=== PATIENT | female | born 1960 | race Caucasian/White ===

== ENCOUNTER 2017-06-06 18:42 | Emergency (ER) | payer OTHER ==
[2017-06-06] MEDS: ASPIRIN 81 MG TAB PO (19:28)
[2017-06-06] MEDS: ONDANSETRON 4 MG INJ IV (20:06)
[2017-06-06 20:11] LABS: WHITE BLOOD COUNT 3.4 10^3/ul (4.8-10.8)
[2017-06-06 20:11] LABS: ABNORMAL IP MESSAGE 1; HEMATOCRIT 35.9 % (37.0-47.0); HEMOGLOBIN 11.8 g/dl (12.0-16.0); MEAN CORPUSCULAR HEMOGLOBIN 29.3 pg (29.0-33.0); MEAN CORPUSCULAR HGB CONC 32.9 g/dl (32.0-37.0); MEAN CORPUSCULAR VOLUME 89.1 fl (82.0-101.0); MEAN PLATELET VOLUME 10.8 fl (7.4-10.4); RED BLOOD COUNT 4.03 10^6/ul (4.20-5.40); RED CELL DISTRIBUTION WIDTH 16.2 % (11.5-14.5)
[2017-06-06] MEDS: HYDROmorphONE 1 MG/5 ML IV SYRINGE IV (20:11)
[2017-06-06] MEDS: FUROSEMIDE 40 MG INJ IV (20:11)
[2017-06-06] MEDS: NITROGLYCERIN 2% 1 GM OINT PKT TD (20:12)
[2017-06-06 20:15] LABS: ADD MAN DIFF? YES; PATH REVIEW? YES; PLATELET COUNT 49 10^3/UL (140-415); POSITIVE DIFF @See below
[2017-06-06 20:18] LABS: INR 1.39; PROTIME 17.3 Sec (11.9-14.9); PT RATIO 1.4
[2017-06-06 20:19] LABS: PARTIAL THROMBOPLASTIN TIME 33.7 Sec (25.0-35.0)
[2017-06-06 20:23] LABS: ALANINE AMINOTRANSFERASE 86 IU/L (13-69); ALBUMIN 2.4 g/dl (3.3-4.9); ALBUMIN/GLOBULIN RATIO 0.48; ALKALINE PHOSPHATASE 135 IU/L (42-121); ASPARTATE AMINO TRANSFERASE 127 IU/L (15-46); BILIRUBIN,INDIRECT 0.9 mg/dl (0-1.1); BILIRUBIN,TOTAL 0.9 mg/dl (0.2-1.3); BLOOD UREA NITROGEN 11 mg/dl (7-20); CALCIUM 8.2 mg/dl (8.4-10.2); CARBON DIOXIDE 28 mmol/L (21-31); CHLORIDE 102 mmol/L (97-110); CREATININE 0.58 mg/dl (0.44-1.00); GLUCOSE 285 mg/dl (70-220); TOTAL PROTEIN 7.3 g/dl (6.1-8.1)
[2017-06-06 20:37] LABS: ANION GAP 12 (8-16); POTASSIUM 3.7 mmol/L (3.5-5.1); SODIUM 138 mmol/L (135-144); TROPONIN-I < 0.012 ng/ml (0.00-0.12)
[2017-06-06 20:40] LABS: BASOPHILS % (M) 2 % (0-2); LYMPHOCYTES #M 0.8 10^3/ul (0.8-2.9); LYMPHOCYTES % (M) 25 % (15-51); MONOCYTE #M 0.2 10^3/ul (0.3-0.9); MONOCYTES % (M) 7 % (0-11); PLATELET ESTIMATE SIG DECREASED; POLYCHROMASIA 2+ (0-0); REACTIVE LYMPHOCYTES% (M) 2 % (0-0); SEGMENTED NEUTROPHILS (M) % 64 % (39-77); SMUDGE%M 7 % (0-0)
== END 2017-06-07 02:32 | disposition home or self-care (01) ==
LOC: E/R 06-07 02:32
DX: K74.69 Other cirrhosis of liver (principal); R60.0 Localized edema; D61.818 Other pancytopenia; E11.9 Type 2 diabetes mellitus without complications; F17.210 Nicotine dependence, cigarettes, uncomplicated; I10 Essential (primary) hypertension; J44.9 Chronic obstructive pulmonary disease, unspecified; Z86.19 Personal history of other infectious and parasitic diseases; Z79.82 Long term (current) use of aspirin
CPT/HCPCS: 36415; 71045; 80053; 84484; 85025; 85610; 85730; 93005; 96374; 96375; 99285-25

== ENCOUNTER 2017-08-29 12:35 | Inpatient (IN) | payer OTHER ==
[2017-08-29] MEDS: ONDANSETRON 4 MG INJ IV (13:02)
[2017-08-29] MEDS: morphine 4 MG/ML VIAL IV (13:03)
[2017-08-29] MEDS: SODIUM CHLORIDE 0.9% 1L BAG IV* (13:09)
[2017-08-29] MEDS: PIPER-TAZO 3.375 GM IV (PMX) 100 ML IVPB (13:09)
[2017-08-29] MEDS: ACETAMINOPHEN 325 MG TAB PO (13:10)
[2017-08-29 13:13] LABS: ADD MAN DIFF? NO
[2017-08-29 13:19] LABS: WHITE BLOOD COUNT 7.3 10^3/ul (4.8-10.8)
[2017-08-29 13:19] LABS: ABNORMAL IP MESSAGE 1; BASOPHIL # 0.1 10^3/ul (0.0-0.1); BASOPHILS % 1.4 % (0.0-2.0); HEMATOCRIT 42.3 % (37.0-47.0); HEMOGLOBIN 13.7 g/dl (12.0-16.0); LYMPHOCYTES # 1.7 10^3/ul (0.8-2.9); LYMPHOCYTES % 23.1 % (15.0-51.0); MEAN CORPUSCULAR HEMOGLOBIN 29.7 pg (29.0-33.0); MEAN CORPUSCULAR HGB CONC 32.4 g/dl (32.0-37.0); MEAN CORPUSCULAR VOLUME 91.6 fl (82.0-101.0); MEAN PLATELET VOLUME 10.8 fl (7.4-10.4); MONOCYTES % 13.6 % (0.0-11.0); NEUTROPHIL # 4.4 10^3/ul (1.6-7.5); NEUTROPHILS % 59.7 % (39.0-77.0); PLATELET COUNT 53 10^3/UL (140-415); RED BLOOD COUNT 4.62 10^6/ul (4.20-5.40); RED CELL DISTRIBUTION WIDTH 16.3 % (11.5-14.5)
[2017-08-29 13:21] LABS: POSITIVE DIFF @See below
[2017-08-29 13:37] LABS: INR 1.47; PROTIME 18.1 Sec (11.9-14.9); PT RATIO 1.4
[2017-08-29 13:38] LABS: PARTIAL THROMBOPLASTIN TIME 35.5 Sec (25.0-35.0)
[2017-08-29 13:46] LABS: LACTIC ACID 1.8 mmol/L (0.5-2.0)
[2017-08-29 13:47] LABS: ALANINE AMINOTRANSFERASE 71 IU/L (13-69); ALBUMIN 2.7 g/dl (3.3-4.9); ALKALINE PHOSPHATASE 134 IU/L (42-121); ANION GAP 10 (8-16); ASPARTATE AMINO TRANSFERASE 107 IU/L (15-46); BILIRUBIN,INDIRECT 2.8 mg/dl (0-1.1); BILIRUBIN,TOTAL 2.8 mg/dl (0.2-1.3); BLOOD UREA NITROGEN 7 mg/dl (7-20); CALCIUM 7.9 mg/dl (8.4-10.2); CARBON DIOXIDE 24 mmol/L (21-31); CHLORIDE 107 mmol/L (97-110); CREATININE 0.47 mg/dl (0.44-1.00); GLUCOSE 241 mg/dl (70-220); LIPASE 83 U/L (23-300); POTASSIUM 4.1 mmol/L (3.5-5.1); SODIUM 137 mmol/L (135-144); TOTAL PROTEIN 8.2 g/dl (6.1-8.1)
[2017-08-29 13:48] LABS: ALBUMIN/GLOBULIN RATIO 0.49
[2017-08-29 13:58] LABS: TROPONIN-I 0.011 ng/ml (0.000-0.120)
[2017-08-29] MEDS ORDERED: ALBUTEROL 0.5% (NEB) 2.5 MG/0.5 ML AMP (13:59)
[2017-08-29] MEDS: ALBUTEROL 0.5% (NEB) 2.5 MG/0.5 ML AMP NEB (14:02)
[2017-08-29 14:03] LABS: B-TYPE NATRIURETIC PEPTIDE 144 PG/ML (0-125)
[2017-08-29] MEDS: FUROSEMIDE 40 MG INJ IV (14:05)
[2017-08-29 14:57] LABS: Allen Test ACCEPTAB; Arterial Base Excess -0.3 mmol/L (-3.0-3); Arterial Blood Gas Oxygen Sat 95.6 mmHG (95.0-98.0); Arterial COHb 1.9 % (0.0-3.0); Arterial Fraction of Oxyhgb 93.5 % (93.0-99.0); Arterial HCO3 26.9 mmol/L (22.0-26.0); Arterial MetHb 0.3 % (0.0-1.5); Arterial Total Hemglobin 14.7 g/dl (12.0-18.0); Blood Gas IEPAP 15/5; Blood Gas PS 10; MODE MASK - BIPAP; Site Right Radial
[2017-08-29] MEDS: AZITHROMYCIN 500MG/NS (PMX) 250 ML IVPB (15:18)
[2017-08-29 15:49] LABS: LACTIC ACID 2.1 mmol/L (0.5-2.0)
[2017-08-29] MEDS ORDERED: ONDANSETRON 4 MG INJ IV (16:00)
[2017-08-29] MEDS ORDERED: ACETAMINOPHEN 325 MG TAB PO (16:00)
[2017-08-29] MEDS: ALBUTEROL/IPRATROPIUM (NEB) 3 ML AMP NEB ×2 (17:00→20:27)
[2017-08-29] MEDS ORDERED: NACL 0.9% 3 ML SYG IV (17:00)
[2017-08-29] MEDS: CEFTRIAXONE 1 GM/50 ML (PMX) 50 ML IVPB (17:18)
[2017-08-29 17:54] LABS: D-DIMER 2446.78 ng/ml (<460)
[2017-08-29] MEDS ORDERED: FUROSEMIDE 40 MG INJ IV (18:00)
[2017-08-29 18:04] LABS: CREATINE KINASE 49 IU/L (23-200)
[2017-08-29 18:17] LABS: CK INDEX 0.5; CK-MB 0.25 ng/ml (0.0-2.4); TROPONIN-I < 0.010 ng/ml (0.000-0.120)
[2017-08-29] MEDS: IODIXANOL LOCM 100 ML BTL ×2 (18:31→18:32)
[2017-08-29] MEDS: SOD CHLORIDE 0.9% 100 ML ×2 (18:31→18:32)
[2017-08-29] MEDS: MONTELUKAST 10 MG TAB PO (21:22)
[2017-08-29] MEDS: ENOXAPARIN 30 MG/0.3 ML SYG SC (21:26)
[2017-08-29] MEDS: ENOXAPARIN 100 MG/ML SYG SC (21:27)
[2017-08-29] MEDS: SOD CHLORIDE 0.9% 500 ML IV (22:30)
[2017-08-29 23:42] LABS: CREATINE KINASE 66 IU/L (23-200)
[2017-08-29 23:54] LABS: CK INDEX 0.6; CK-MB 0.38 ng/ml (0.0-2.4); TROPONIN-I 0.014 ng/ml (0.000-0.120)
[2017-08-30] MEDS: NACL 3% FOR INHALATION 15 ML NEBU NEB (00:29)
[2017-08-30] MEDS: ALBUTEROL/IPRATROPIUM (NEB) 3 ML AMP NEB ×6 (01:44→20:17)
[2017-08-30 03:33] LABS: LACTIC ACID 5.1 mmol/L (0.5-2.0)
[2017-08-30] MEDS: LEVOFLOXACIN 750MG/D5W (PMX) 150 ML IVPB (04:02)
[2017-08-30] MEDS: SOD CHLORIDE 0.9% 500 ML IV (04:02)
[2017-08-30 06:11] LABS: ADD MAN DIFF? NO
[2017-08-30 06:21] LABS: ABNORMAL IP MESSAGE 1; BASOPHIL # 0.1 10^3/ul (0.0-0.1); BASOPHILS % 0.9 % (0.0-2.0); HEMATOCRIT 37.9 % (37.0-47.0); HEMOGLOBIN 11.7 g/dl (12.0-16.0); LYMPHOCYTES # 1.4 10^3/ul (0.8-2.9); LYMPHOCYTES % 15.8 % (15.0-51.0); MEAN CORPUSCULAR HEMOGLOBIN 29.4 pg (29.0-33.0); MEAN CORPUSCULAR HGB CONC 30.9 g/dl (32.0-37.0); MEAN CORPUSCULAR VOLUME 95.2 fl (82.0-101.0); MEAN PLATELET VOLUME 11.7 fl (7.4-10.4); MONOCYTE # 1.2 10^3/ul (0.3-0.9); MONOCYTES % 13.9 % (0.0-11.0); NEUTROPHIL # 5.9 10^3/ul (1.6-7.5); NEUTROPHILS % 68.2 % (39.0-77.0); PLATELET COUNT 49 10^3/UL (140-415); RED BLOOD COUNT 3.98 10^6/ul (4.20-5.40); RED CELL DISTRIBUTION WIDTH 16.7 % (11.5-14.5)
[2017-08-30 06:21] LABS: WHITE BLOOD COUNT 8.7 10^3/ul (4.8-10.8)
[2017-08-30 06:36] LABS: CREATINE KINASE 46 IU/L (23-200); POSITIVE DIFF @See below
[2017-08-30 06:49] LABS: CK INDEX 0.6; CK-MB 0.27 ng/ml (0.0-2.4); TROPONIN-I < 0.010 ng/ml (0.000-0.120)
[2017-08-30 07:19] LABS: HEMOGLOBIN A1C 8.3 % (0-5.9)
[2017-08-30 07:26] LABS: ANION GAP 13 (8-16); BLOOD UREA NITROGEN 14 mg/dl (7-20); CALCIUM 7.6 mg/dl (8.4-10.2); CARBON DIOXIDE 21 mmol/L (21-31); CHLORIDE 108 mmol/L (97-110); GLUCOSE 201 mg/dl (70-220); MAGNESIUM 1.3 mg/dl (1.7-2.5); POTASSIUM 4.5 mmol/L (3.5-5.1); SODIUM 137 mmol/L (135-144)
[2017-08-30 08:10] LABS: ALANINE AMINOTRANSFERASE 59 IU/L (13-69); ALBUMIN 2.3 g/dl (3.3-4.9); ALKALINE PHOSPHATASE 99 IU/L (42-121); ASPARTATE AMINO TRANSFERASE 75 IU/L (15-46); BILIRUBIN,INDIRECT 2.5 mg/dl (0-1.1); BILIRUBIN,TOTAL 2.5 mg/dl (0.2-1.3); TOTAL PROTEIN 7.2 g/dl (6.1-8.1)
[2017-08-30] MEDS: FUROSEMIDE 40 MG INJ IV (08:10)
[2017-08-30] MEDS: ENOXAPARIN 100 MG/ML SYG SC ×2 (08:20→21:58)
[2017-08-30] MEDS: ENOXAPARIN 30 MG/0.3 ML SYG SC ×2 (08:20→22:00)
[2017-08-30] MEDS ORDERED: ENOXAPARIN 40 MG/0.4 ML SYG SC (09:00)
[2017-08-30 09:15] LABS: LACTIC ACID 3.2 mmol/L (0.5-2.0)
[2017-08-30 09:29] LABS: HEPATITIS B SURFACE ANTIGEN NEGATIVE (NEGATIVE)
[2017-08-30 09:46] LABS: HEPATITIS B SURFACE ANTIBODY NEGATIVE (NEGATIVE)
[2017-08-30 09:46] LABS: HEPATITIS B CORE ANTIBODY NEGATIVE (NEGATIVE); HEPATITIS C VIRAL ANTIBODY REACTIVE (NEGATIVE)
[2017-08-30 10:29] LABS: ADD UMIC YES; UR ASCORBIC ACID NEGATIVE (NEGATIVE); UR BACTERIA MODERATE /HPF (NONE SEEN); UR BILIRUBIN (Dip) NEGATIVE (NEGATIVE); UR BLOOD (Dip) 2+ mg/dL (NEGATIVE); UR CLARITY SLIGHTLY CLOUDY (CLEAR); UR COLOR AMBER (YELLOW); UR GLUCOSE (Dip) NEGATIVE (NEGATIVE); UR KETONES (Dip) NEGATIVE (NEGATIVE); UR LEUKOCYTE ESTERASE (Dip) 3+ Leu/ul (NEGATIVE); UR MUCUS FEW /HPF (NONE SEEN); UR NITRITE (Dip) NEGATIVE (NEGATIVE); UR RBC 21 /HPF (0-5); UR RENAL EPITHELIAL CELL FEW /HPF (NONE SEEN); UR SPECIFIC GRAVITY (Dip) > 1.060 (1.003-1.030); UR SQUAMOUS EPITHELIAL CELL FEW /HPF (FEW); UR TOTAL PROTEIN (Dip) 1+ mg/dl (NEGATIVE); UR UROBILINOGEN (Dip) 2+ mg/dL (NEGATIVE); UR WBC 95 /HPF (0-5)
[2017-08-30 13:42] LABS: AADO2 Arterial 168.4 mmHg (7.0-24.0); Allen Test ACCEPTAB; Arterial Base Excess -3.5 mmol/L (-3.0-3); Arterial Blood Gas Oxygen Sat 90.6 mmHG (95.0-98.0); Arterial COHb 1.2 % (0.0-3.0); Arterial Fraction of Oxyhgb 89.4 % (93.0-99.0); Arterial MetHb 0.1 % (0.0-1.5); Arterial Total Hemglobin 12.4 g/dl (12.0-18.0); Arterial pCO2 41.8 mmhg (35-45); MODE NASAL CANNULA; Site Left Radial
[2017-08-30 13:44] LABS: LACTIC ACID 4.9 mmol/L (0.5-2.0)
[2017-08-30] MEDS: AZITHROMYCIN 250 MG TAB PO (14:15)
[2017-08-30] MEDS: MAGNESIUM SULFATE 3 GM in DEXTROSE 5% 100 ML IVPB (14:15)
[2017-08-30] MEDS ORDERED: VANCOMYCIN IV PER PHARMACY XX (17:00)
[2017-08-30] MEDS: CEFEPIME 1GM/50 ML (PMX) 50 ML IVPB (17:18)
[2017-08-30] MEDS: VANCOMYCIN 2 GM in SOD CHLORIDE 0.9% 500 ML IVPB (18:35)
[2017-08-30 19:16] LABS: LACTIC ACID 5.3 mmol/L (0.5-2.0)
[2017-08-30 19:25] LABS: AADO2 Arterial 171.1 mmHg (7.0-24.0); Allen Test ACCEPTAB; Arterial Base Excess -1.6 mmol/L (-3.0-3); Arterial Blood Gas Oxygen Sat 92.9 mmHG (95.0-98.0); Arterial COHb 0.8 % (0.0-3.0); Arterial HCO3 23.6 mmol/L (22.0-26.0); Arterial MetHb 0.2 % (0.0-1.5); Arterial Total Hemglobin 12.8 g/dl (12.0-18.0); Arterial pCO2 41.3 mmhg (35-45); Blood Gas IEPAP 18/8; Blood Gas PS 10; MODE MASK - BIPAP; Site Left Radial
[2017-08-30] MEDS: MONTELUKAST 10 MG TAB PO (21:00)
[2017-08-30] MEDS: SOD CHLORIDE 0.9% 100 ML (23:56)
[2017-08-30] MEDS: IOHEXOL 100 ML (23:56)
[2017-08-31] MEDS: ALBUTEROL/IPRATROPIUM (NEB) 3 ML AMP NEB ×6 (00:01→20:17)
[2017-08-31 01:28] LABS: LACTIC ACID 4.1 mmol/L (0.5-2.0)
[2017-08-31] MEDS: CEFEPIME 1GM/50 ML (PMX) 50 ML IVPB ×3 (01:37→20:23)
[2017-08-31] MEDS: VANCOMYCIN 1.25 GM in SOD CHLORIDE 0.9% 250 ML IVPB ×2 (02:42→14:18)
[2017-08-31] MEDS: LEVOFLOXACIN 750MG/D5W (PMX) 150 ML IVPB (04:52)
[2017-08-31 08:00] LABS: ADD MAN DIFF? NO
[2017-08-31 08:07] LABS: ABNORMAL IP MESSAGE 1; BASOPHIL # 0.1 10^3/ul (0.0-0.1); BASOPHILS % 1.2 % (0.0-2.0); HEMATOCRIT 35.2 % (37.0-47.0); HEMOGLOBIN 11.4 g/dl (12.0-16.0); LYMPHOCYTES # 0.9 10^3/ul (0.8-2.9); MEAN CORPUSCULAR HEMOGLOBIN 30.2 pg (29.0-33.0); MEAN CORPUSCULAR HGB CONC 32.4 g/dl (32.0-37.0); MEAN CORPUSCULAR VOLUME 93.1 fl (82.0-101.0); MONOCYTE # 1.1 10^3/ul (0.3-0.9); MONOCYTES % 12.7 % (0.0-11.0); NEUTROPHIL # 6.1 10^3/ul (1.6-7.5); NEUTROPHILS % 72.3 % (39.0-77.0); NUCLEATED RED BLOOD CELLS% 0.2 /100WBC (0.0-0.0); PLATELET COUNT 55 10^3/UL (140-415); RED BLOOD COUNT 3.78 10^6/ul (4.20-5.40); RED CELL DISTRIBUTION WIDTH 16.6 % (11.5-14.5)
[2017-08-31 08:07] LABS: WHITE BLOOD COUNT 8.5 10^3/ul (4.8-10.8)
[2017-08-31 08:09] LABS: Allen Test ACCEPTAB; Arterial Base Excess 0.3 mmol/L (-3.0-3); Arterial Blood Gas Oxygen Sat 95.3 mmHG (95.0-98.0); Arterial Fraction of Oxyhgb 94.3 % (93.0-99.0); Arterial HCO3 25.1 mmol/L (22.0-26.0); Arterial MetHb 0 % (0.0-1.5); Arterial Total Hemglobin 12.6 g/dl (12.0-18.0); Arterial pCO2 41.5 mmhg (35-45); Blood Gas IEPAP 18/8; Blood Gas PS 10; MODE MASK - BIPAP; Site Right Radial
[2017-08-31 08:11] LABS: POSITIVE DIFF @See below
[2017-08-31 08:41] LABS: LACTIC ACID 2.5 mmol/L (0.5-2.0); MAGNESIUM 1.8 mg/dl (1.7-2.5)
[2017-08-31] MEDS: FUROSEMIDE 40 MG INJ IV (08:42)
[2017-08-31] MEDS: ENOXAPARIN 100 MG/ML SYG SC (08:47)
[2017-08-31] MEDS: ENOXAPARIN 30 MG/0.3 ML SYG SC (08:51)
[2017-08-31 09:23] LABS: ALBUMIN/GLOBULIN RATIO 0.43; ANION GAP 10 (8-16)
[2017-08-31 09:33] LABS: ALANINE AMINOTRANSFERASE 51 IU/L (13-69); ALKALINE PHOSPHATASE 85 IU/L (42-121); ASPARTATE AMINO TRANSFERASE 45 IU/L (15-46); BLOOD UREA NITROGEN 23 mg/dl (7-20); CALCIUM 7.6 mg/dl (8.4-10.2); CARBON DIOXIDE 22 mmol/L (21-31); CHLORIDE 106 mmol/L (97-110); CREATININE 0.69 mg/dl (0.44-1.00); GLUCOSE 262 mg/dl (70-220); POTASSIUM 4.7 mmol/L (3.5-5.1); SODIUM 133 mmol/L (135-144); TOTAL PROTEIN 6.6 g/dl (6.1-8.1)
[2017-08-31] MEDS: HYDROCODONE/APAP (5/325) TAB PO ×2 (11:20→20:23)
[2017-08-31 18:37] LABS: LACTIC ACID 3.7 mmol/L (0.5-2.0)
[2017-08-31] MEDS: MONTELUKAST 10 MG TAB PO (20:23)
[2017-09-01] MEDS: ALBUTEROL/IPRATROPIUM (NEB) 3 ML AMP NEB ×6 (01:05→20:25)
[2017-09-01 02:33] LABS: VANCOMYCIN,TROUGH 8.7 ug/ml (10.0-20.0)
[2017-09-01] MEDS: VANCOMYCIN 1.25 GM in SOD CHLORIDE 0.9% 250 ML IVPB (02:53)
[2017-09-01] MEDS: HYDROCODONE/APAP (5/325) TAB PO (03:19)
[2017-09-01] MEDS: LORAZEPAM 2 MG INJ IV (05:32)
[2017-09-01 07:05] LABS: ADD MAN DIFF? NO
[2017-09-01 07:14] LABS: WHITE BLOOD COUNT 8.2 10^3/ul (4.8-10.8)
[2017-09-01 07:14] LABS: ABNORMAL IP MESSAGE 1; BASOPHIL # 0.1 10^3/ul (0.0-0.1); BASOPHILS % 1.2 % (0.0-2.0); HEMATOCRIT 37.1 % (37.0-47.0); HEMOGLOBIN 11.8 g/dl (12.0-16.0); LYMPHOCYTES # 0.9 10^3/ul (0.8-2.9); LYMPHOCYTES % 10.4 % (15.0-51.0); MEAN CORPUSCULAR HEMOGLOBIN 30.1 pg (29.0-33.0); MEAN CORPUSCULAR HGB CONC 31.8 g/dl (32.0-37.0); MEAN CORPUSCULAR VOLUME 94.6 fl (82.0-101.0); MEAN PLATELET VOLUME 11.6 fl (7.4-10.4); MONOCYTE # 0.8 10^3/ul (0.3-0.9); NEUTROPHILS % 73.4 % (39.0-77.0); NUCLEATED RED BLOOD CELLS% 0.2 /100WBC (0.0-0.0); PLATELET COUNT 53 10^3/UL (140-415); RED BLOOD COUNT 3.92 10^6/ul (4.20-5.40); RED CELL DISTRIBUTION WIDTH 16.7 % (11.5-14.5)
[2017-09-01 07:25] LABS: POSITIVE DIFF @See below
[2017-09-01] MEDS: CEFEPIME 1GM/50 ML (PMX) 50 ML IVPB ×2 (08:51→19:50)
[2017-09-01] MEDS: ENOXAPARIN 40 MG/0.4 ML SYG SC (08:53)
[2017-09-01] MEDS: METHYLPREDNISOLONE 125 MG INJ IV ×3 (11:33→19:50)
[2017-09-01] MEDS: VANCOMYCIN 1.75 GM in SOD CHLORIDE 0.9% 500 ML IVPB (15:46)
[2017-09-01] MEDS: hydrALAzine 20 MG INJ IV (17:29)
[2017-09-01] MEDS: HALOPERIDOL 5 MG INJ IV (19:50)
[2017-09-01] MEDS: MONTELUKAST 10 MG TAB PO ×2 (19:50→21:00)
[2017-09-01 21:46] LABS: AADO2 Arterial 183.8 mmHg (7.0-24.0); Allen Test ACCEPTAB; Arterial Base Excess -0.4 mmol/L (-3.0-3); Arterial Blood Gas Oxygen Sat 85.8 mmHG (95.0-98.0); Arterial COHb 1.1 % (0.0-3.0); Arterial Fraction of Oxyhgb 84.7 % (93.0-99.0); Arterial MetHb 0.2 % (0.0-1.5); Arterial Total Hemglobin 14.2 g/dl (12.0-18.0); Arterial pCO2 43.9 mmhg (35-45); MODE HFNC; Site Right Radial
[2017-09-02] MEDS: ALBUTEROL/IPRATROPIUM (NEB) 3 ML AMP NEB ×5 (01:12→20:05)
[2017-09-02] MEDS: VANCOMYCIN 1.75 GM in SOD CHLORIDE 0.9% 500 ML IVPB ×2 (02:00→14:35)
[2017-09-02] MEDS: HALOPERIDOL 5 MG INJ IM (03:30)
[2017-09-02 06:19] LABS: AADO2 Arterial 606.6 mmHg (7.0-24.0); Allen Test ACCEPTAB; Arterial Base Excess -1.1 mmol/L (-3.0-3); Arterial Blood Gas Oxygen Sat 93.2 mmHG (95.0-98.0); Arterial Fraction of Oxyhgb 92.1 % (93.0-99.0); Arterial HCO3 23.4 mmol/L (22.0-26.0); Arterial MetHb 0.2 % (0.0-1.5); Arterial Total Hemglobin 13.9 g/dl (12.0-18.0); Arterial pCO2 38.6 mmhg (35-45); MODE HFNC; Site Left Radial
[2017-09-02] MEDS: METHYLPREDNISOLONE 125 MG INJ IV ×3 (06:27→22:06)
[2017-09-02] MEDS: CEFEPIME 1GM/50 ML (PMX) 50 ML IVPB ×2 (08:41→20:41)
[2017-09-02 11:18] LABS: ADD MAN DIFF? NO
[2017-09-02 11:25] LABS: WHITE BLOOD COUNT 11.4 10^3/ul (4.8-10.8)
[2017-09-02 11:25] LABS: ABNORMAL IP MESSAGE 1; BASOPHIL # 0.1 10^3/ul (0.0-0.1); HEMATOCRIT 41.2 % (37.0-47.0); HEMOGLOBIN 12.8 g/dl (12.0-16.0); LYMPHOCYTES # 1.1 10^3/ul (0.8-2.9); LYMPHOCYTES % 9.5 % (15.0-51.0); MEAN CORPUSCULAR HEMOGLOBIN 30.1 pg (29.0-33.0); MEAN CORPUSCULAR HGB CONC 31.1 g/dl (32.0-37.0); MEAN CORPUSCULAR VOLUME 96.9 fl (82.0-101.0); MONOCYTE # 0.9 10^3/ul (0.3-0.9); NEUTROPHIL # 8.8 10^3/ul (1.6-7.5); NEUTROPHILS % 76.8 % (39.0-77.0); NUCLEATED RED BLOOD CELLS% 0.3 /100WBC (0.0-0.0); PLATELET COUNT 80 10^3/UL (140-415); RED BLOOD COUNT 4.25 10^6/ul (4.20-5.40); RED CELL DISTRIBUTION WIDTH 17.2 % (11.5-14.5)
[2017-09-02 11:32] LABS: POSITIVE DIFF @See below
[2017-09-02 11:48] LABS: AMMONIA 60 umol/l (9-30)
[2017-09-02 11:55] LABS: ALANINE AMINOTRANSFERASE 39 IU/L (13-69); ALBUMIN 2.4 g/dl (3.3-4.9); ALBUMIN/GLOBULIN RATIO 0.46; ALKALINE PHOSPHATASE 109 IU/L (42-121); ANION GAP 11 (8-16); ASPARTATE AMINO TRANSFERASE 61 IU/L (15-46); BILIRUBIN,TOTAL 2.1 mg/dl (0.2-1.3); BLOOD UREA NITROGEN 29 mg/dl (7-20); CALCIUM 8.1 mg/dl (8.4-10.2); CARBON DIOXIDE 24 mmol/L (21-31); CHLORIDE 108 mmol/L (97-110); CREATININE 0.62 mg/dl (0.44-1.00); GLUCOSE 250 mg/dl (70-220); SODIUM 137 mmol/L (135-144); TOTAL PROTEIN 7.6 g/dl (6.1-8.1)
[2017-09-02 11:56] LABS: LACTIC ACID 6.7 mmol/L (0.5-2.0)
[2017-09-02 12:02] LABS: AADO2 Arterial 601.3 mmHg (7.0-24.0); Allen Test ACCEPTAB; Arterial Base Excess -0.2 mmol/L (-3.0-3); Arterial Fraction of Oxyhgb 90.9 % (93.0-99.0); Arterial HCO3 25.7 mmol/L (22.0-26.0); Arterial MetHb 0.2 % (0.0-1.5); Arterial Total Hemglobin 14.1 g/dl (12.0-18.0); Arterial pCO2 46.7 mmhg (35-45); MODE MASK - NRB; Site Right Radial
[2017-09-02] MEDS: SOD CHLORIDE 0.45% 1,000 ML IV (13:14)
[2017-09-02] MEDS: LACTULOSE 30ML CUP NGT ×2 (13:16→17:12)
[2017-09-02] MEDS ORDERED: DEXTROSE 50% 50 ML SYRINGE IV ×2 (15:00)
[2017-09-02] MEDS: ACCU-CHEK XX ×9 (15:00→22:58)
[2017-09-02] MEDS: NA POLYST SULFON 15 GM/60 ML BTL PO (15:24)
[2017-09-02] MEDS: INSULIN HUMAN REGULAR 100 UNIT in SOD CHLORIDE 0.9% 99 ML IV (16:49)
[2017-09-02 18:57] LABS: ANION GAP 13 (8-16); BLOOD UREA NITROGEN 34 mg/dl (7-20); CALCIUM 8.2 mg/dl (8.4-10.2); CARBON DIOXIDE 23 mmol/L (21-31); CHLORIDE 108 mmol/L (97-110); CREATININE 0.68 mg/dl (0.44-1.00); GLUCOSE 277 mg/dl (70-220); POTASSIUM 5.4 mmol/L (3.5-5.1); SODIUM 139 mmol/L (135-144)
[2017-09-02 19:22] LABS: LACTIC ACID 6.5 mmol/L (0.5-2.0)
[2017-09-02] MEDS: MONTELUKAST 10 MG TAB PO (20:41)
[2017-09-02] MEDS: HYDROCODONE/APAP (5/325) TAB PO (23:03)
[2017-09-03] MEDS: ACCU-CHEK XX ×25 (00:10→23:59)
[2017-09-03] MEDS: LACTULOSE 30ML CUP NGT ×5 (00:10→23:57)
[2017-09-03] MEDS: ALBUTEROL/IPRATROPIUM (NEB) 3 ML AMP NEB ×3 (00:33→10:46)
[2017-09-03] MEDS: HALOPERIDOL 5 MG INJ IV ×2 (01:08→09:54)
[2017-09-03 01:45] LABS: LACTIC ACID 5.2 mmol/L (0.5-2.0)
[2017-09-03 01:47] LABS: VANCOMYCIN,TROUGH 18.2 ug/ml (10.0-20.0)
[2017-09-03] MEDS: VANCOMYCIN 1.75 GM in SOD CHLORIDE 0.9% 500 ML IVPB (02:04)
[2017-09-03] MEDS: INSULIN HUMAN REGULAR 100 UNIT in SOD CHLORIDE 0.9% 99 ML IV (03:25)
[2017-09-03] MEDS: hydrALAzine 20 MG INJ IV ×2 (04:44→10:17)
[2017-09-03 06:02] LABS: ADD MAN DIFF? NO
[2017-09-03 06:04] LABS: ABNORMAL IP MESSAGE 1; BASOPHIL # 0.1 10^3/ul (0.0-0.1); BASOPHILS % 0.5 % (0.0-2.0); HEMATOCRIT 40.9 % (37.0-47.0); HEMOGLOBIN 12.8 g/dl (12.0-16.0); LYMPHOCYTES # 1.3 10^3/ul (0.8-2.9); LYMPHOCYTES % 11.4 % (15.0-51.0); MEAN CORPUSCULAR HEMOGLOBIN 29.5 pg (29.0-33.0); MEAN CORPUSCULAR HGB CONC 31.3 g/dl (32.0-37.0); MEAN CORPUSCULAR VOLUME 94.2 fl (82.0-101.0); MEAN PLATELET VOLUME 10.9 fl (7.4-10.4); MONOCYTE # 0.7 10^3/ul (0.3-0.9); MONOCYTES % 6.2 % (0.0-11.0); NEUTROPHIL # 8.9 10^3/ul (1.6-7.5); NEUTROPHILS % 77.4 % (39.0-77.0); NUCLEATED RED BLOOD CELLS # 0.1 10^3/ul (0.0-0.0); NUCLEATED RED BLOOD CELLS% 0.4 /100WBC (0.0-0.0); PLATELET COUNT 75 10^3/UL (140-415); RED BLOOD COUNT 4.34 10^6/ul (4.20-5.40); RED CELL DISTRIBUTION WIDTH 17.7 % (11.5-14.5)
[2017-09-03 06:04] LABS: WHITE BLOOD COUNT 11.5 10^3/ul (4.8-10.8)
[2017-09-03] MEDS: SOD CHLORIDE 0.45% 1,000 ML IV ×2 (06:06→22:20)
[2017-09-03] MEDS: METHYLPREDNISOLONE 125 MG INJ IV ×3 (06:06→21:58)
[2017-09-03 06:17] LABS: POSITIVE DIFF @See below
[2017-09-03 06:26] LABS: AMMONIA 96 umol/l (9-30)
[2017-09-03 06:38] LABS: LACTIC ACID 4.2 mmol/L (0.5-2.0)
[2017-09-03 07:36] LABS: AADO2 Arterial 466.5 mmHg (7.0-24.0); Allen Test ACCEPTAB; Arterial Base Excess 2.6 mmol/L (-3.0-3); Arterial Blood Gas Oxygen Sat 92.2 mmHG (95.0-98.0); Arterial COHb 0.7 % (0.0-3.0); Arterial Fraction of Oxyhgb 91.4 % (93.0-99.0); Arterial HCO3 26.6 mmol/L (22.0-26.0); Arterial MetHb 0.2 % (0.0-1.5); Arterial Total Hemglobin 13.5 g/dl (12.0-18.0); Arterial pCO2 38.9 mmhg (35-45); MODE HFNC; Site Right Radial
[2017-09-03 07:39] LABS: ANION GAP 7 (8-16); BLOOD UREA NITROGEN 42 mg/dl (7-20); CALCIUM 8.3 mg/dl (8.4-10.2); CARBON DIOXIDE 26 mmol/L (21-31); CHLORIDE 110 mmol/L (97-110); CREATININE 0.61 mg/dl (0.44-1.00); GLUCOSE 131 mg/dl (70-220); SODIUM 139 mmol/L (135-144)
[2017-09-03] MEDS: CEFEPIME 1GM/50 ML (PMX) 50 ML IVPB ×2 (08:14→20:35)
[2017-09-03] MEDS: ENALAPRILAT 1.25 MG INJ IV ×2 (11:50→17:42)
[2017-09-03 12:48] LABS: LACTIC ACID 3.1 mmol/L (0.5-2.0)
[2017-09-03] MEDS: LIDOCAINE 1% (MPF) 5 ML VIAL SC (13:11)
[2017-09-03] MEDS: SOD CHLORIDE 0.9% 100 ML (13:45)
[2017-09-03] MEDS: VANCOMYCIN 1.5 GM in SOD CHLORIDE 0.9% 250 ML IVPB (14:08)
[2017-09-03] MEDS: LEVALBUTEROL (NEB) 0.63 MG/3 ML AMP HHN ×2 (14:50→19:51)
[2017-09-03] MEDS: LIDOCAINE 1% (MDV) 10 ML INJ (15:54)
[2017-09-03 16:54] LABS: FLUID TOTAL PROTEIN 2.7 g/dl
[2017-09-03] MEDS: HYDROCODONE/APAP (5/325) TAB PO (20:35)
[2017-09-03] MEDS: MONTELUKAST 10 MG TAB PO (20:35)
[2017-09-04] MEDS: ACCU-CHEK XX ×24 (01:00→23:59)
[2017-09-04] MEDS: LEVALBUTEROL (NEB) 0.63 MG/3 ML AMP HHN (01:09)
[2017-09-04 01:36] LABS: LACTIC ACID 2.5 mmol/L (0.5-2.0)
[2017-09-04] MEDS: VANCOMYCIN 1.5 GM in SOD CHLORIDE 0.9% 250 ML IVPB ×2 (02:12→14:09)
[2017-09-04] MEDS: HYDROCODONE/APAP (5/325) TAB PO (03:03)
[2017-09-04 05:23] LABS: ADD MAN DIFF? NO
[2017-09-04 05:25] LABS: WHITE BLOOD COUNT 5.9 10^3/ul (4.8-10.8)
[2017-09-04 05:25] LABS: ABNORMAL IP MESSAGE 1; BASOPHILS % 0.3 % (0.0-2.0); HEMATOCRIT 35.8 % (37.0-47.0); HEMOGLOBIN 11.3 g/dl (12.0-16.0); LYMPHOCYTES # 0.7 10^3/ul (0.8-2.9); LYMPHOCYTES % 11.8 % (15.0-51.0); MEAN CORPUSCULAR HEMOGLOBIN 30.1 pg (29.0-33.0); MEAN CORPUSCULAR HGB CONC 31.6 g/dl (32.0-37.0); MEAN CORPUSCULAR VOLUME 95.2 fl (82.0-101.0); MEAN PLATELET VOLUME 10.5 fl (7.4-10.4); MONOCYTE # 0.5 10^3/ul (0.3-0.9); MONOCYTES % 8.7 % (0.0-11.0); NEUTROPHIL # 4.5 10^3/ul (1.6-7.5); NEUTROPHILS % 76.5 % (39.0-77.0); NUCLEATED RED BLOOD CELLS% 0.5 /100WBC (0.0-0.0); PLATELET COUNT 53 10^3/UL (140-415); RED BLOOD COUNT 3.76 10^6/ul (4.20-5.40); RED CELL DISTRIBUTION WIDTH 18.3 % (11.5-14.5)
[2017-09-04 05:33] LABS: POSITIVE DIFF @See below
[2017-09-04] MEDS: PANTOPRAZOLE 40 MG INJ IV (05:59)
[2017-09-04] MEDS: METHYLPREDNISOLONE 125 MG INJ IV ×3 (05:59→21:41)
[2017-09-04] MEDS: LACTULOSE 30ML CUP NGT ×4 (06:00→21:41)
[2017-09-04 06:22] LABS: AMMONIA 78 umol/l (9-30)
[2017-09-04 06:27] LABS: LACTIC ACID 2.3 mmol/L (0.5-2.0)
[2017-09-04 06:27] LABS: ANION GAP 6 (8-16); BLOOD UREA NITROGEN 49 mg/dl (7-20); CALCIUM 7.9 mg/dl (8.4-10.2); CARBON DIOXIDE 27 mmol/L (21-31); CHLORIDE 111 mmol/L (97-110); CREATININE 0.64 mg/dl (0.44-1.00); GLUCOSE 163 mg/dl (70-220); POTASSIUM 4.3 mmol/L (3.5-5.1); SODIUM 140 mmol/L (135-144)
[2017-09-04 07:11] LABS: AADO2 Arterial 379.6 mmHg (7.0-24.0); Allen Test ACCEPTAB; Arterial Base Excess 1.1 mmol/L (-3.0-3); Arterial Blood Gas Oxygen Sat 96.7 mmHG (95.0-98.0); Arterial COHb 0.5 % (0.0-3.0); Arterial Fraction of Oxyhgb 96.1 % (93.0-99.0); Arterial HCO3 23.6 mmol/L (22.0-26.0); Arterial MetHb 0.1 % (0.0-1.5); Arterial pCO2 31.4 mmhg (35-45); MODE HFNC; Site Right Radial
[2017-09-04] MEDS ORDERED: PROPOFOL 100 ML (07:41)
[2017-09-04] MEDS: PROPOFOL 100 ML IV ×5 (07:50→21:37)
[2017-09-04] MEDS: SOD CHLORIDE 0.45% 1,000 ML IV (09:00)
[2017-09-04] MEDS: CEFEPIME 1GM/50 ML (PMX) 50 ML IVPB ×2 (09:24→21:42)
[2017-09-04 09:31] LABS: AADO2 Arterial 221.4 mmHg (7.0-24.0); Allen Test ACCEPTAB; Arterial Base Excess 1.1 mmol/L (-3.0-3); Arterial Blood Gas Oxygen Sat 95.8 mmHG (95.0-98.0); Arterial COHb 0.4 % (0.0-3.0); Arterial Fraction of Oxyhgb 95.2 % (93.0-99.0); Arterial HCO3 26.3 mmol/L (22.0-26.0); Arterial MetHb 0.2 % (0.0-1.5); Arterial Total Hemglobin 13.7 g/dl (12.0-18.0); Arterial pCO2 44.1 mmhg (35-45); MODE VENT - AC; Site Right Radial
[2017-09-04] MEDS: HEPARIN 5,000 UNIT/0.5 ML VIAL SC ×2 (12:42→21:45)
[2017-09-04 13:32] LABS: LACTIC ACID 2.7 mmol/L (0.5-2.0)
[2017-09-04] MEDS: LEVALBUTEROL (HFA) 15 GM INHALER INH ×2 (15:36→19:50)
[2017-09-04] MEDS: FENTAnyl (DRIP) 1000 mcg/100mL 100 ML IV (17:09)
[2017-09-04] MEDS: SOD CHLORIDE 0.9% 500 ML IV (20:14)
[2017-09-04] MEDS: MONTELUKAST 10 MG TAB PO (21:41)
[2017-09-05] MEDS: ACCU-CHEK XX ×23 (01:06→23:02)
[2017-09-05] MEDS: LACTULOSE 30ML CUP NGT ×6 (01:13→21:51)
[2017-09-05] MEDS: LEVALBUTEROL (HFA) 15 GM INHALER INH ×4 (01:17→19:44)
[2017-09-05] MEDS: PROPOFOL 100 ML IV ×5 (01:22→20:12)
[2017-09-05] MEDS: VANCOMYCIN 1.5 GM in SOD CHLORIDE 0.9% 250 ML IVPB ×2 (02:00→13:59)
[2017-09-05] MEDS: PANTOPRAZOLE 40 MG INJ IV (05:07)
[2017-09-05] MEDS: METHYLPREDNISOLONE 125 MG INJ IV ×3 (05:07→21:51)
[2017-09-05 06:10] LABS: AMMONIA 55 umol/l (9-30)
[2017-09-05 06:28] LABS: ANION GAP 6 (8-16); BLOOD UREA NITROGEN 51 mg/dl (7-20); CALCIUM 7.8 mg/dl (8.4-10.2); CARBON DIOXIDE 28 mmol/L (21-31); CHLORIDE 114 mmol/L (97-110); CREATININE 0.72 mg/dl (0.44-1.00); GLUCOSE 159 mg/dl (70-220); POTASSIUM 4.7 mmol/L (3.5-5.1); SODIUM 143 mmol/L (135-144)
[2017-09-05] MEDS: SOD CHLORIDE 0.45% 1,000 ML IV ×2 (07:40→10:20)
[2017-09-05] MEDS: INSULIN HUMAN REGULAR 100 UNIT in SOD CHLORIDE 0.9% 99 ML IV (07:58)
[2017-09-05] MEDS: CEFEPIME 1GM/50 ML (PMX) 50 ML IVPB ×2 (08:04→21:51)
[2017-09-05] MEDS: HEPARIN 5,000 UNIT/0.5 ML VIAL SC ×2 (08:08→21:53)
[2017-09-05 09:59] LABS: ADD MAN DIFF? NO
[2017-09-05 10:02] LABS: ABNORMAL IP MESSAGE 1; BASOPHILS % 0.4 % (0.0-2.0); HEMATOCRIT 38.1 % (37.0-47.0); LYMPHOCYTES # 0.7 10^3/ul (0.8-2.9); LYMPHOCYTES % 9.5 % (15.0-51.0); MEAN CORPUSCULAR HEMOGLOBIN 30.8 pg (29.0-33.0); MEAN CORPUSCULAR HGB CONC 31.5 g/dl (32.0-37.0); MEAN CORPUSCULAR VOLUME 97.9 fl (82.0-101.0); MEAN PLATELET VOLUME 10.8 fl (7.4-10.4); MONOCYTE # 0.5 10^3/ul (0.3-0.9); NEUTROPHIL # 5.8 10^3/ul (1.6-7.5); NEUTROPHILS % 80.6 % (39.0-77.0); NUCLEATED RED BLOOD CELLS% 0.4 /100WBC (0.0-0.0); PLATELET COUNT 53 10^3/UL (140-415); RED BLOOD COUNT 3.89 10^6/ul (4.20-5.40); RED CELL DISTRIBUTION WIDTH 18.1 % (11.5-14.5)
[2017-09-05 10:02] LABS: WHITE BLOOD COUNT 7.2 10^3/ul (4.8-10.8)
[2017-09-05 10:05] LABS: POSITIVE DIFF @See below
[2017-09-05] MEDS: FENTAnyl (DRIP) 1000 mcg/100mL 100 ML IV (11:19)
[2017-09-05 14:27] LABS: VANCOMYCIN,TROUGH 22.1 ug/ml (10.0-20.0)
[2017-09-05] MEDS: MONTELUKAST 10 MG TAB PO (21:52)
[2017-09-06] MEDS: ACCU-CHEK XX ×24 (00:05→23:00)
[2017-09-06] MEDS: INSULIN HUMAN REGULAR 100 UNIT in SOD CHLORIDE 0.9% 99 ML IV ×2 (00:10→15:30)
[2017-09-06] MEDS: PROPOFOL 100 ML IV ×2 (00:19→05:00)
[2017-09-06] MEDS: LACTULOSE 30ML CUP NGT ×6 (00:19→21:58)
[2017-09-06] MEDS: LEVALBUTEROL (HFA) 15 GM INHALER INH ×4 (01:16→19:10)
[2017-09-06] MEDS: SOD CHLORIDE 0.45% 1,000 ML IV (03:20)
[2017-09-06] MEDS: VANCOMYCIN 1.75 GM in SOD CHLORIDE 0.9% 500 ML IVPB (05:05)
[2017-09-06] MEDS: PANTOPRAZOLE 40 MG INJ IV (05:18)
[2017-09-06] MEDS: METHYLPREDNISOLONE 125 MG INJ IV (05:18)
[2017-09-06 05:28] LABS: ADD MAN DIFF? NO
[2017-09-06 05:35] LABS: ABNORMAL IP MESSAGE 1; BASOPHILS % 0.2 % (0.0-2.0); HEMATOCRIT 37.1 % (37.0-47.0); HEMOGLOBIN 11.5 g/dl (12.0-16.0); LYMPHOCYTES # 0.6 10^3/ul (0.8-2.9); LYMPHOCYTES % 9.4 % (15.0-51.0); MEAN CORPUSCULAR HEMOGLOBIN 30.1 pg (29.0-33.0); MEAN CORPUSCULAR VOLUME 97.1 fl (82.0-101.0); MEAN PLATELET VOLUME 10.5 fl (7.4-10.4); MONOCYTE # 0.4 10^3/ul (0.3-0.9); MONOCYTES % 6.6 % (0.0-11.0); NEUTROPHIL # 4.8 10^3/ul (1.6-7.5); NEUTROPHILS % 80.3 % (39.0-77.0); NUCLEATED RED BLOOD CELLS% 0.3 /100WBC (0.0-0.0); PLATELET COUNT 53 10^3/UL (140-415); RED BLOOD COUNT 3.82 10^6/ul (4.20-5.40); RED CELL DISTRIBUTION WIDTH 17.7 % (11.5-14.5)
[2017-09-06 05:35] LABS: WHITE BLOOD COUNT 5.9 10^3/ul (4.8-10.8)
[2017-09-06 05:50] LABS: POSITIVE DIFF @See below
[2017-09-06 05:53] LABS: AMMONIA 59 umol/l (9-30)
[2017-09-06 06:11] LABS: ANION GAP 6 (8-16); BLOOD UREA NITROGEN 56 mg/dl (7-20); CARBON DIOXIDE 28 mmol/L (21-31); CHLORIDE 115 mmol/L (97-110); CREATININE 0.87 mg/dl (0.44-1.00); GLUCOSE 157 mg/dl (70-220); POTASSIUM 4.6 mmol/L (3.5-5.1); SODIUM 144 mmol/L (135-144)
[2017-09-06 06:14] LABS: MAGNESIUM 2.5 mg/dl (1.7-2.5)
[2017-09-06 06:14] LABS: PHOSPHORUS 3.7 mg/dl (2.5-4.9)
[2017-09-06] MEDS: FENTAnyl (DRIP) 1000 mcg/100mL 100 ML IV (06:14)
[2017-09-06] MEDS: CEFEPIME 1GM/50 ML (PMX) 50 ML IVPB ×2 (10:00→21:58)
[2017-09-06] MEDS: HEPARIN 5,000 UNIT/0.5 ML VIAL SC ×2 (10:07→21:59)
[2017-09-06] MEDS: METHYLPREDNISOLONE 40 MG INJ IV ×2 (13:45→21:58)
[2017-09-06] MEDS: FAMOTIDINE 20 MG TAB NGT (21:58)
[2017-09-06] MEDS: MONTELUKAST 10 MG TAB PO (21:58)
[2017-09-07] MEDS: ACCU-CHEK XX ×24 (00:28→23:00)
[2017-09-07] MEDS: LACTULOSE 30ML CUP NGT ×6 (01:20→21:40)
[2017-09-07] MEDS: LEVALBUTEROL (HFA) 15 GM INHALER INH ×4 (01:24→19:31)
[2017-09-07] MEDS: INSULIN HUMAN REGULAR 100 UNIT in SOD CHLORIDE 0.9% 99 ML IV ×2 (04:34→19:00)
[2017-09-07] MEDS: VANCOMYCIN 1.75 GM in SOD CHLORIDE 0.9% 500 ML IVPB (05:02)
[2017-09-07] MEDS: METHYLPREDNISOLONE 40 MG INJ IV ×3 (05:10→21:37)
[2017-09-07 05:23] LABS: ANION GAP 6 (8-16); BLOOD UREA NITROGEN 50 mg/dl (7-20); CALCIUM 8.3 mg/dl (8.4-10.2); CARBON DIOXIDE 28 mmol/L (21-31); CHLORIDE 118 mmol/L (97-110); CREATININE 0.86 mg/dl (0.44-1.00); GLUCOSE 171 mg/dl (70-220); POTASSIUM 4.4 mmol/L (3.5-5.1); SODIUM 148 mmol/L (135-144)
[2017-09-07] MEDS: hydrALAzine 20 MG INJ IV ×2 (06:26→21:38)
[2017-09-07] MEDS: PROPOFOL 100 ML IV ×2 (07:55→20:00)
[2017-09-07] MEDS: FAMOTIDINE 20 MG TAB NGT ×2 (08:33→21:37)
[2017-09-07] MEDS: CEFEPIME 1GM/50 ML (PMX) 50 ML IVPB ×2 (08:33→21:37)
[2017-09-07] MEDS: HEPARIN 5,000 UNIT/0.5 ML VIAL SC ×2 (08:46→21:39)
[2017-09-07] MEDS: ACETAMINOPHEN 325 MG TAB PO (21:37)
[2017-09-07] MEDS: MONTELUKAST 10 MG TAB PO (21:38)
[2017-09-08] MEDS: ACCU-CHEK XX ×13 (00:04→12:40)
[2017-09-08] MEDS: LEVALBUTEROL (HFA) 15 GM INHALER INH ×4 (01:23→20:09)
[2017-09-08] MEDS: LACTULOSE 30ML CUP NGT ×6 (01:50→21:13)
[2017-09-08 04:58] LABS: ADD MAN DIFF? NO
[2017-09-08 05:02] LABS: ABNORMAL IP MESSAGE 1; BASOPHILS % 0.5 % (0.0-2.0); HEMATOCRIT 40.6 % (37.0-47.0); HEMOGLOBIN 12.4 g/dl (12.0-16.0); LYMPHOCYTES # 0.6 10^3/ul (0.8-2.9); LYMPHOCYTES % 7.9 % (15.0-51.0); MEAN CORPUSCULAR HEMOGLOBIN 29.8 pg (29.0-33.0); MEAN CORPUSCULAR HGB CONC 30.5 g/dl (32.0-37.0); MEAN CORPUSCULAR VOLUME 97.6 fl (82.0-101.0); MEAN PLATELET VOLUME 10.5 fl (7.4-10.4); MONOCYTE # 0.9 10^3/ul (0.3-0.9); NUCLEATED RED BLOOD CELLS% 0.4 /100WBC (0.0-0.0); PLATELET COUNT 53 10^3/UL (140-415); RED BLOOD COUNT 4.16 10^6/ul (4.20-5.40); RED CELL DISTRIBUTION WIDTH 19.2 % (11.5-14.5)
[2017-09-08 05:02] LABS: WHITE BLOOD COUNT 7.9 10^3/ul (4.8-10.8)
[2017-09-08 05:05] LABS: POSITIVE DIFF @See below
[2017-09-08 05:20] LABS: AMMONIA 28 umol/l (9-30)
[2017-09-08 05:29] LABS: ANION GAP 3 (8-16); BLOOD UREA NITROGEN 56 mg/dl (7-20); CALCIUM 8.1 mg/dl (8.4-10.2); CARBON DIOXIDE 29 mmol/L (21-31); CHLORIDE 121 mmol/L (97-110); GLUCOSE 198 mg/dl (70-220); POTASSIUM 4.4 mmol/L (3.5-5.1); SODIUM 149 mmol/L (135-144)
[2017-09-08] MEDS: METHYLPREDNISOLONE 40 MG INJ IV ×3 (05:47→22:35)
[2017-09-08] MEDS: hydrALAzine 20 MG INJ IV (07:00)
[2017-09-08] MEDS: PROPOFOL 100 ML IV ×2 (07:33→21:39)
[2017-09-08] MEDS: CEFEPIME 1GM/50 ML (PMX) 50 ML IVPB ×2 (08:16→21:12)
[2017-09-08] MEDS: FAMOTIDINE 20 MG TAB NGT ×2 (08:16→21:13)
[2017-09-08] MEDS: HEPARIN 5,000 UNIT/0.5 ML VIAL SC ×2 (08:17→21:17)
[2017-09-08] MEDS: INSULIN HUMAN REGULAR 100 UNIT in SOD CHLORIDE 0.9% 99 ML IV (11:00)
[2017-09-08] MEDS ORDERED: GLUCAGON 1 MG INJ IM (13:30)
[2017-09-08] MEDS ORDERED: GLUCOSE GEL 15 GRAM TUBE PO ×2 (13:30)
[2017-09-08] MEDS ORDERED: DEXTROSE 50% 50 ML SYRINGE IV ×2 (13:30)
[2017-09-08] MEDS ORDERED: GLUCOSE GEL 15 GRAM TUBE BUCCAL (13:30)
[2017-09-08] MEDS ORDERED: INSULIN GLARGINE [LANTus] (100 UNITS/ML) SYG SC (14:00)
[2017-09-08] MEDS: INSULIN ASPART [NOVOLOG] 3 ML PEN SC ×3 (15:13→21:17)
[2017-09-08] MEDS: INSULIN GLARGINE [LANTus] (100 UNITS/ML) SYG SC (15:16)
[2017-09-08] MEDS: MONTELUKAST 10 MG TAB PO (21:13)
[2017-09-08] MEDS: LEVALBUTEROL (NEB) 0.63 MG/3 ML AMP HHN (23:27)
[2017-09-09] MEDS: LACTULOSE 30ML CUP NGT ×4 (00:51→21:45)
[2017-09-09] MEDS: INSULIN ASPART [NOVOLOG] 3 ML PEN SC ×7 (01:24→21:01)
[2017-09-09] MEDS: ACCU-CHEK XX (01:25)
[2017-09-09] MEDS: ACETAMINOPHEN 325 MG TAB PO (01:30)
[2017-09-09] MEDS: LEVALBUTEROL (HFA) 15 GM INHALER INH ×4 (02:00→20:28)
[2017-09-09 05:38] LABS: ADD MAN DIFF? NO
[2017-09-09 05:40] LABS: WHITE BLOOD COUNT 8.2 10^3/ul (4.8-10.8)
[2017-09-09 05:40] LABS: ABNORMAL IP MESSAGE 1; BASOPHILS % 0.5 % (0.0-2.0); HEMATOCRIT 39.7 % (37.0-47.0); HEMOGLOBIN 12.1 g/dl (12.0-16.0); LYMPHOCYTES # 0.6 10^3/ul (0.8-2.9); LYMPHOCYTES % 7.5 % (15.0-51.0); MEAN CORPUSCULAR HEMOGLOBIN 30.8 pg (29.0-33.0); MEAN CORPUSCULAR HGB CONC 30.5 g/dl (32.0-37.0); MEAN PLATELET VOLUME 10.6 fl (7.4-10.4); MONOCYTE # 0.7 10^3/ul (0.3-0.9); MONOCYTES % 8.3 % (0.0-11.0); NEUTROPHIL # 6.6 10^3/ul (1.6-7.5); NEUTROPHILS % 79.8 % (39.0-77.0); NUCLEATED RED BLOOD CELLS # 0.1 10^3/ul (0.0-0.0); NUCLEATED RED BLOOD CELLS% 0.7 /100WBC (0.0-0.0); PLATELET COUNT 44 10^3/UL (140-415); RED BLOOD COUNT 3.93 10^6/ul (4.20-5.40); RED CELL DISTRIBUTION WIDTH 19.5 % (11.5-14.5)
[2017-09-09 06:02] LABS: POSITIVE DIFF @See below
[2017-09-09 06:04] LABS: ANION GAP 7 (8-16); BLOOD UREA NITROGEN 70 mg/dl (7-20); CARBON DIOXIDE 26 mmol/L (21-31); CHLORIDE 121 mmol/L (97-110); CREATININE 1.05 mg/dl (0.44-1.00); GLUCOSE 317 mg/dl (70-220); POTASSIUM 4.8 mmol/L (3.5-5.1); SODIUM 149 mmol/L (135-144)
[2017-09-09 06:08] LABS: AMMONIA 24 umol/l (9-30)
[2017-09-09] MEDS: METHYLPREDNISOLONE 40 MG INJ IV ×2 (06:28→13:20)
[2017-09-09] MEDS: PROPOFOL 100 ML IV ×2 (08:00→20:00)
[2017-09-09] MEDS: FAMOTIDINE 20 MG TAB NGT ×2 (08:42→20:58)
[2017-09-09] MEDS: CEFEPIME 1GM/50 ML (PMX) 50 ML IVPB ×2 (08:42→20:58)
[2017-09-09] MEDS: HEPARIN 5,000 UNIT/0.5 ML VIAL SC ×2 (08:45→20:59)
[2017-09-09] MEDS: INSULIN GLARGINE [LANTus] (100 UNITS/ML) SYG SC ×2 (15:57)
[2017-09-09] MEDS: MONTELUKAST 10 MG TAB PO (20:58)
[2017-09-10] MEDS: INSULIN ASPART [NOVOLOG] 3 ML PEN SC ×6 (01:18→21:25)
[2017-09-10] MEDS: LEVALBUTEROL (HFA) 15 GM INHALER INH ×4 (01:38→20:07)
[2017-09-10] MEDS: ACCU-CHEK XX (02:00)
[2017-09-10 04:57] LABS: ADD MAN DIFF? NO
[2017-09-10 05:02] LABS: ABNORMAL IP MESSAGE 1; BASOPHILS % 0.2 % (0.0-2.0); HEMATOCRIT 40.1 % (37.0-47.0); HEMOGLOBIN 12.2 g/dl (12.0-16.0); LYMPHOCYTES # 1.1 10^3/ul (0.8-2.9); MEAN CORPUSCULAR HEMOGLOBIN 30.3 pg (29.0-33.0); MEAN CORPUSCULAR HGB CONC 30.4 g/dl (32.0-37.0); MEAN CORPUSCULAR VOLUME 99.5 fl (82.0-101.0); MEAN PLATELET VOLUME 10.5 fl (7.4-10.4); MONOCYTE # 1.3 10^3/ul (0.3-0.9); MONOCYTES % 10.8 % (0.0-11.0); NEUTROPHILS % 75.4 % (39.0-77.0); NUCLEATED RED BLOOD CELLS # 0.1 10^3/ul (0.0-0.0); NUCLEATED RED BLOOD CELLS% 0.7 /100WBC (0.0-0.0); PLATELET COUNT 51 10^3/UL (140-415); RED BLOOD COUNT 4.03 10^6/ul (4.20-5.40); RED CELL DISTRIBUTION WIDTH 19.2 % (11.5-14.5)
[2017-09-10 05:22] LABS: POSITIVE DIFF @See below
[2017-09-10] MEDS: LACTULOSE 30ML CUP NGT ×5 (05:45→21:12)
[2017-09-10 05:48] LABS: AMMONIA 34 umol/l (9-30)
[2017-09-10 05:51] LABS: ANION GAP 7 (8-16); BLOOD UREA NITROGEN 75 mg/dl (7-20); CALCIUM 8.2 mg/dl (8.4-10.2); CARBON DIOXIDE 26 mmol/L (21-31); CHLORIDE 119 mmol/L (97-110); CREATININE 1.15 mg/dl (0.44-1.00); GLUCOSE 286 mg/dl (70-220); POTASSIUM 4.6 mmol/L (3.5-5.1); SODIUM 147 mmol/L (135-144)
[2017-09-10] MEDS: PROPOFOL 100 ML IV ×2 (08:00→20:00)
[2017-09-10] MEDS: FAMOTIDINE 20 MG TAB NGT ×2 (08:34→21:12)
[2017-09-10] MEDS: CEFEPIME 1GM/50 ML (PMX) 50 ML IVPB ×2 (08:34→21:12)
[2017-09-10] MEDS: HEPARIN 5,000 UNIT/0.5 ML VIAL SC ×2 (08:40→21:25)
[2017-09-10] MEDS: ACETAMINOPHEN 325 MG TAB PO (11:22)
[2017-09-10] MEDS: INSULIN GLARGINE [LANTus] (100 UNITS/ML) SYG SC ×2 (15:42)
[2017-09-10] MEDS: MONTELUKAST 10 MG TAB PO (21:12)
[2017-09-11] MEDS: LACTULOSE 30ML CUP NGT ×6 (01:16→20:42)
[2017-09-11] MEDS: ACETAMINOPHEN 325 MG TAB PO (01:16)
[2017-09-11] MEDS: INSULIN ASPART [NOVOLOG] 3 ML PEN SC ×3 (01:22→08:55)
[2017-09-11] MEDS: ACCU-CHEK XX ×16 (01:25→23:40)
[2017-09-11] MEDS: LEVALBUTEROL (HFA) 15 GM INHALER INH ×4 (01:54→19:45)
[2017-09-11 04:43] LABS: ADD MAN DIFF? NO
[2017-09-11 04:46] LABS: WHITE BLOOD COUNT 10.8 10^3/ul (4.8-10.8)
[2017-09-11 04:46] LABS: ABNORMAL IP MESSAGE 1; BASOPHIL # 0.1 10^3/ul (0.0-0.1); BASOPHILS % 0.5 % (0.0-2.0); HEMATOCRIT 38.5 % (37.0-47.0); HEMOGLOBIN 11.6 g/dl (12.0-16.0); LYMPHOCYTES # 1.6 10^3/ul (0.8-2.9); LYMPHOCYTES % 14.7 % (15.0-51.0); MEAN CORPUSCULAR HEMOGLOBIN 30.9 pg (29.0-33.0); MEAN CORPUSCULAR HGB CONC 30.1 g/dl (32.0-37.0); MEAN CORPUSCULAR VOLUME 102.7 fl (82.0-101.0); MEAN PLATELET VOLUME 10.5 fl (7.4-10.4); MONOCYTE # 1.3 10^3/ul (0.3-0.9); MONOCYTES % 11.8 % (0.0-11.0); NEUTROPHIL # 7.3 10^3/ul (1.6-7.5); NEUTROPHILS % 68.1 % (39.0-77.0); NUCLEATED RED BLOOD CELLS # 0.2 10^3/ul (0.0-0.0); NUCLEATED RED BLOOD CELLS% 1.4 /100WBC (0.0-0.0); PLATELET COUNT 40 10^3/UL (140-415); RED BLOOD COUNT 3.75 10^6/ul (4.20-5.40); RED CELL DISTRIBUTION WIDTH 19.3 % (11.5-14.5)
[2017-09-11 04:48] LABS: POSITIVE DIFF @See below
[2017-09-11 05:35] LABS: ANION GAP 6 (8-16); BLOOD UREA NITROGEN 80 mg/dl (7-20); CARBON DIOXIDE 28 mmol/L (21-31); CHLORIDE 119 mmol/L (97-110); CREATININE 1.03 mg/dl (0.44-1.00); GLUCOSE 247 mg/dl (70-220); POTASSIUM 4.5 mmol/L (3.5-5.1); SODIUM 148 mmol/L (135-144)
[2017-09-11 05:35] LABS: AMMONIA 21 umol/l (9-30)
[2017-09-11] MEDS: PROPOFOL 100 ML IV ×2 (07:56→20:00)
[2017-09-11] MEDS: FAMOTIDINE 20 MG TAB NGT ×2 (08:42→20:42)
[2017-09-11] MEDS: HEPARIN 5,000 UNIT/0.5 ML VIAL SC ×2 (08:43→20:43)
[2017-09-11] MEDS: CEFEPIME 1GM/50 ML (PMX) 50 ML IVPB ×2 (08:43→20:41)
[2017-09-11] MEDS ORDERED: DEXTROSE 50% 50 ML SYRINGE IV ×2 (09:30)
[2017-09-11] MEDS: SOD CHLORIDE 0.45% 1,000 ML IV (10:33)
[2017-09-11] MEDS: INSULIN HUMAN REGULAR 100 UNIT in SOD CHLORIDE 0.9% 99 ML IV (11:44)
[2017-09-11 13:54] LABS: ADD UMIC YES; UR ASCORBIC ACID 20 mg/dL (NEGATIVE); UR BACTERIA FEW /HPF (NONE SEEN); UR BILIRUBIN (Dip) NEGATIVE (NEGATIVE); UR BLOOD (Dip) 3+ mg/dL (NEGATIVE); UR CLARITY CLEAR (CLEAR); UR COLOR AMBER (YELLOW); UR GLUCOSE (Dip) NEGATIVE (NEGATIVE); UR KETONES (Dip) NEGATIVE (NEGATIVE); UR LEUKOCYTE ESTERASE (Dip) TRACE Leu/ul (NEGATIVE); UR NITRITE (Dip) NEGATIVE (NEGATIVE); UR RBC > 182 /HPF (0-5); UR SPECIFIC GRAVITY (Dip) 1.021 (1.003-1.030); UR TOTAL PROTEIN (Dip) 1+ mg/dl (NEGATIVE); UR UROBILINOGEN (Dip) NEGATIVE (NEGATIVE); UR WBC 140 /HPF (0-5)
[2017-09-11] MEDS: MONTELUKAST 10 MG TAB PO (20:42)
[2017-09-12] MEDS: ACCU-CHEK XX ×24 (00:28→23:32)
[2017-09-12] MEDS: SOD CHLORIDE 0.45% 1,000 ML IV (00:28)
[2017-09-12] MEDS: INSULIN HUMAN REGULAR 100 UNIT in SOD CHLORIDE 0.9% 99 ML IV ×2 (00:33→14:53)
[2017-09-12] MEDS: LACTULOSE 30ML CUP NGT ×6 (00:59→20:41)
[2017-09-12] MEDS: LEVALBUTEROL (HFA) 15 GM INHALER INH ×4 (01:07→19:31)
[2017-09-12 05:25] LABS: ADD MAN DIFF? NO
[2017-09-12 05:37] LABS: ABNORMAL IP MESSAGE 1; BASOPHILS % 0.4 % (0.0-2.0); HEMOGLOBIN 11.6 g/dl (12.0-16.0); LYMPHOCYTES # 1.3 10^3/ul (0.8-2.9); LYMPHOCYTES % 12.1 % (15.0-51.0); MEAN CORPUSCULAR HGB CONC 30.5 g/dl (32.0-37.0); MEAN CORPUSCULAR VOLUME 101.6 fl (82.0-101.0); MEAN PLATELET VOLUME 12.4 fl (7.4-10.4); MONOCYTE # 1.2 10^3/ul (0.3-0.9); MONOCYTES % 11.4 % (0.0-11.0); NEUTROPHIL # 7.5 10^3/ul (1.6-7.5); NEUTROPHILS % 71.1 % (39.0-77.0); NUCLEATED RED BLOOD CELLS # 0.1 10^3/ul (0.0-0.0); PLATELET COUNT 41 10^3/UL (140-415); RED BLOOD COUNT 3.74 10^6/ul (4.20-5.40); RED CELL DISTRIBUTION WIDTH 19.5 % (11.5-14.5)
[2017-09-12 05:37] LABS: WHITE BLOOD COUNT 10.6 10^3/ul (4.8-10.8)
[2017-09-12 05:58] LABS: AMMONIA 35 umol/l (9-30)
[2017-09-12 06:11] LABS: POSITIVE DIFF @See below
[2017-09-12 06:17] LABS: ANION GAP 1 (8-16); BLOOD UREA NITROGEN 68 mg/dl (7-20); CALCIUM 7.9 mg/dl (8.4-10.2); CARBON DIOXIDE 31 mmol/L (21-31); CHLORIDE 118 mmol/L (97-110); GLUCOSE 141 mg/dl (70-220); PHOSPHORUS 2.4 mg/dl (2.5-4.9); SODIUM 146 mmol/L (135-144)
[2017-09-12] MEDS: PROPOFOL 100 ML IV ×2 (07:22→20:00)
[2017-09-12 08:36] LABS: AADO2 Arterial 165.3 mmHg (7.0-24.0); Allen Test ACCEPTAB; Arterial Base Excess 2.2 mmol/L (-3.0-3); Arterial Blood Gas Oxygen Sat 94.3 mmHG (95.0-98.0); Arterial COHb 0.7 % (0.0-3.0); Arterial Fraction of Oxyhgb 93.5 % (93.0-99.0); Arterial HCO3 26.7 mmol/L (22.0-26.0); Arterial MetHb 0.1 % (0.0-1.5); Arterial Total Hemglobin 13.6 g/dl (12.0-18.0); Arterial pCO2 40.7 mmhg (35-45); MODE VENT - AC; Site Right Radial
[2017-09-12] MEDS: HEPARIN 5,000 UNIT/0.5 ML VIAL SC (09:00)
[2017-09-12] MEDS: CEFEPIME 1GM/50 ML (PMX) 50 ML IVPB ×2 (09:04→20:50)
[2017-09-12] MEDS: FAMOTIDINE 20 MG TAB NGT ×2 (09:04→20:41)
[2017-09-12] MEDS: MONTELUKAST 10 MG TAB PO (20:41)
[2017-09-13] MEDS: ACCU-CHEK XX ×24 (00:32→23:42)
[2017-09-13] MEDS: LACTULOSE 30ML CUP NGT ×6 (01:06→21:33)
[2017-09-13] MEDS: LEVALBUTEROL (HFA) 15 GM INHALER INH ×4 (01:13→19:42)
[2017-09-13] MEDS: INSULIN HUMAN REGULAR 100 UNIT in SOD CHLORIDE 0.9% 99 ML IV ×2 (04:50→19:53)
[2017-09-13 05:23] LABS: ABNORMAL IP MESSAGE 1; HEMATOCRIT 38.3 % (37.0-47.0); HEMOGLOBIN 11.8 g/dl (12.0-16.0); MEAN CORPUSCULAR HEMOGLOBIN 31.2 pg (29.0-33.0); MEAN CORPUSCULAR HGB CONC 30.8 g/dl (32.0-37.0); MEAN CORPUSCULAR VOLUME 101.3 fl (82.0-101.0); MEAN PLATELET VOLUME 13.1 fl (7.4-10.4); NUCLEATED RED BLOOD CELLS% 0.4 /100WBC (0.0-0.0); PLATELET COUNT 42 10^3/UL (140-415); RED BLOOD COUNT 3.78 10^6/ul (4.20-5.40); RED CELL DISTRIBUTION WIDTH 20.7 % (11.5-14.5)
[2017-09-13 05:23] LABS: WHITE BLOOD COUNT 11.8 10^3/ul (4.8-10.8)
[2017-09-13 05:31] LABS: POSITIVE DIFF @See below
[2017-09-13 05:32] LABS: ADD MAN DIFF? YES
[2017-09-13 06:03] LABS: AMMONIA 21 umol/l (9-30)
[2017-09-13 06:09] LABS: ANION GAP 4 (8-16); BLOOD UREA NITROGEN 63 mg/dl (7-20); CALCIUM 7.9 mg/dl (8.4-10.2); CARBON DIOXIDE 29 mmol/L (21-31); CHLORIDE 116 mmol/L (97-110); GLUCOSE 157 mg/dl (70-220); POTASSIUM 3.7 mmol/L (3.5-5.1); SODIUM 145 mmol/L (135-144)
[2017-09-13] MEDS: PROPOFOL 100 ML IV ×2 (08:00→20:00)
[2017-09-13 09:22] LABS: ANISOCYTOSIS 1+ (0-0); BAND NEUTROPHILS #M 0.7 10^3/ul (0.0-0.6); BAND NEUTROPHILS % (M) 6 % (0-4); ERYTHROBLAST% (NRBC) (M) 3 % (0-0); LYMPHOCYTES #M 0.4 10^3/ul (0.8-2.9); LYMPHOCYTES % (M) 4 % (15-51); METAMYELOCYTES #M 0.2 10^3/ul (0.0-0.0); METAMYELOCYTES %M 2 % (0-0); MONOCYTE #M 0.2 10^3/ul (0.3-0.9); MONOCYTES % (M) 2 % (0-11); MYELOCYTES #M 0.2 10^3/ul (0.0-0.0); MYELOCYTES % (M) 2 % (0-0); PLATELET ESTIMATE DECREASED; SEGMENTED NEUTROPHILS (M) % 84 % (39-77); SMUDGE%M 16 % (0-0)
[2017-09-13] MEDS: FAMOTIDINE 20 MG TAB NGT ×2 (09:36→21:32)
[2017-09-13] MEDS: MONTELUKAST 10 MG TAB PO (21:32)
[2017-09-14] MEDS: LEVALBUTEROL (HFA) 15 GM INHALER INH ×2 (01:22→07:34)
[2017-09-14] MEDS: ACCU-CHEK XX ×24 (01:25→23:45)
[2017-09-14] MEDS: LACTULOSE 30ML CUP NGT ×6 (01:51→20:50)
[2017-09-14 05:59] LABS: ADD MAN DIFF? NO
[2017-09-14 06:08] LABS: WHITE BLOOD COUNT 12.5 10^3/ul (4.8-10.8)
[2017-09-14 06:08] LABS: ABNORMAL IP MESSAGE 1; BASOPHILS % 0.3 % (0.0-2.0); HEMATOCRIT 37.1 % (37.0-47.0); HEMOGLOBIN 11.3 g/dl (12.0-16.0); LYMPHOCYTES # 1.2 10^3/ul (0.8-2.9); LYMPHOCYTES % 9.5 % (15.0-51.0); MEAN CORPUSCULAR HGB CONC 30.5 g/dl (32.0-37.0); MEAN CORPUSCULAR VOLUME 101.9 fl (82.0-101.0); MEAN PLATELET VOLUME 12.3 fl (7.4-10.4); MONOCYTE # 1.3 10^3/ul (0.3-0.9); NEUTROPHIL # 9.4 10^3/ul (1.6-7.5); NEUTROPHILS % 74.9 % (39.0-77.0); NUCLEATED RED BLOOD CELLS # 0.1 10^3/ul (0.0-0.0); NUCLEATED RED BLOOD CELLS% 0.6 /100WBC (0.0-0.0); PLATELET COUNT 46 10^3/UL (140-415); RED BLOOD COUNT 3.64 10^6/ul (4.20-5.40); RED CELL DISTRIBUTION WIDTH 21.4 % (11.5-14.5)
[2017-09-14 06:14] LABS: POSITIVE DIFF @See below
[2017-09-14 06:38] LABS: ANION GAP 3 (8-16); BLOOD UREA NITROGEN 67 mg/dl (7-20); CARBON DIOXIDE 28 mmol/L (21-31); CHLORIDE 114 mmol/L (97-110); CREATININE 0.86 mg/dl (0.44-1.00); GLUCOSE 160 mg/dl (70-220); POTASSIUM 3.8 mmol/L (3.5-5.1); SODIUM 141 mmol/L (135-144)
[2017-09-14 06:38] LABS: AMMONIA 27 umol/l (9-30)
[2017-09-14] MEDS: PROPOFOL 100 ML IV (08:00)
[2017-09-14] MEDS: FAMOTIDINE 20 MG TAB NGT ×2 (09:37→20:49)
[2017-09-14 09:47] LABS: AADO2 Arterial 162.4 mmHg (7.0-24.0); Allen Test ACCEPTAB; Arterial Base Excess 1.3 mmol/L (-3.0-3); Arterial Blood Gas Oxygen Sat 94.7 mmHG (95.0-98.0); Arterial COHb 0.6 % (0.0-3.0); Arterial Fraction of Oxyhgb 93.9 % (93.0-99.0); Arterial HCO3 25.8 mmol/L (22.0-26.0); Arterial MetHb 0.2 % (0.0-1.5); Arterial Total Hemglobin 13.1 g/dl (12.0-18.0); Arterial pCO2 40.2 mmhg (35-45); Blood Gas PS 10; MODE VENT - CPAP; Site Right Radial
[2017-09-14] MEDS: INSULIN HUMAN REGULAR 100 UNIT in SOD CHLORIDE 0.9% 99 ML IV (17:20)
[2017-09-14] MEDS: MONTELUKAST 10 MG TAB PO (20:49)
[2017-09-15] MEDS: ACCU-CHEK XX ×9 (00:35→08:38)
[2017-09-15] MEDS: LACTULOSE 30ML CUP NGT ×6 (00:46→22:07)
[2017-09-15 05:28] LABS: ADD MAN DIFF? NO
[2017-09-15 05:45] LABS: WHITE BLOOD COUNT 13.1 10^3/ul (4.8-10.8)
[2017-09-15 05:45] LABS: ABNORMAL IP MESSAGE 1; BASOPHIL # 0.1 10^3/ul (0.0-0.1); BASOPHILS % 0.5 % (0.0-2.0); HEMOGLOBIN 12.1 g/dl (12.0-16.0); LYMPHOCYTES # 1.1 10^3/ul (0.8-2.9); LYMPHOCYTES % 8.1 % (15.0-51.0); MEAN CORPUSCULAR HEMOGLOBIN 31.1 pg (29.0-33.0); MEAN CORPUSCULAR HGB CONC 30.3 g/dl (32.0-37.0); MEAN CORPUSCULAR VOLUME 102.8 fl (82.0-101.0); MEAN PLATELET VOLUME 11.8 fl (7.4-10.4); MONOCYTE # 1.1 10^3/ul (0.3-0.9); MONOCYTES % 8.7 % (0.0-11.0); NEUTROPHIL # 10.3 10^3/ul (1.6-7.5); NEUTROPHILS % 78.1 % (39.0-77.0); NUCLEATED RED BLOOD CELLS% 0.2 /100WBC (0.0-0.0); RED BLOOD COUNT 3.89 10^6/ul (4.20-5.40); RED CELL DISTRIBUTION WIDTH 22.1 % (11.5-14.5)
[2017-09-15 06:08] LABS: ANION GAP 5 (8-16); BLOOD UREA NITROGEN 60 mg/dl (7-20); CALCIUM 8.3 mg/dl (8.4-10.2); CARBON DIOXIDE 27 mmol/L (21-31); CHLORIDE 114 mmol/L (97-110); CREATININE 0.68 mg/dl (0.44-1.00); GLUCOSE 120 mg/dl (70-220); POTASSIUM 3.6 mmol/L (3.5-5.1); SODIUM 142 mmol/L (135-144)
[2017-09-15 06:11] LABS: POSITIVE DIFF @See below
[2017-09-15 06:12] LABS: PLATELET COUNT 42 10^3/UL (140-415)
[2017-09-15] MEDS: INSULIN HUMAN REGULAR 100 UNIT in SOD CHLORIDE 0.9% 99 ML IV (07:51)
[2017-09-15] MEDS: FAMOTIDINE 20 MG TAB NGT ×2 (08:34→21:53)
[2017-09-15] MEDS: ALBUMIN HUMAN 25% 100 ML IV ×2 (09:00→19:04)
[2017-09-15] MEDS ORDERED: INSULIN ASPART [NOVOLOG] 3 ML PEN SC (11:30)
[2017-09-15] MEDS: INSULIN GLARGINE [LANTus] (100 UNITS/ML) SYG SC (12:02)
[2017-09-15] MEDS: FUROSEMIDE 40 MG INJ IV (12:51)
[2017-09-15] MEDS: INSULIN ASPART [NOVOLOG] 3 ML PEN SC ×2 (19:13→21:00)
[2017-09-15] MEDS: MONTELUKAST 10 MG TAB PO (21:54)
[2017-09-16] MEDS: ALBUMIN HUMAN 25% 100 ML IV (01:24)
[2017-09-16] MEDS: LACTULOSE 30ML CUP NGT ×6 (01:25→21:06)
[2017-09-16] MEDS: ACCU-CHEK XX (01:46)
[2017-09-16] MEDS ORDERED: ACCU-CHEK XX (02:00)
[2017-09-16] MEDS: ACETAMINOPHEN 325 MG TAB PO (06:33)
[2017-09-16 07:47] LABS: ADD MAN DIFF? NO
[2017-09-16 07:51] LABS: ABNORMAL IP MESSAGE 1; BASOPHILS % 0.2 % (0.0-2.0); HEMOGLOBIN 10.6 g/dl (12.0-16.0); LYMPHOCYTES # 0.9 10^3/ul (0.8-2.9); LYMPHOCYTES % 10.4 % (15.0-51.0); MEAN CORPUSCULAR HEMOGLOBIN 31.2 pg (29.0-33.0); MEAN CORPUSCULAR HGB CONC 30.3 g/dl (32.0-37.0); MEAN CORPUSCULAR VOLUME 102.9 fl (82.0-101.0); MONOCYTE # 0.7 10^3/ul (0.3-0.9); MONOCYTES % 7.8 % (0.0-11.0); NEUTROPHIL # 6.8 10^3/ul (1.6-7.5); NEUTROPHILS % 78.6 % (39.0-77.0); RED CELL DISTRIBUTION WIDTH 21.9 % (11.5-14.5)
[2017-09-16 07:51] LABS: WHITE BLOOD COUNT 8.7 10^3/ul (4.8-10.8)
[2017-09-16] MEDS: FAMOTIDINE 20 MG TAB NGT ×2 (08:00→21:05)
[2017-09-16] MEDS: FUROSEMIDE 40 MG INJ IV (08:00)
[2017-09-16 08:06] LABS: PLATELET COUNT 40 10^3/UL (140-415); POSITIVE DIFF @See below
[2017-09-16 08:10] LABS: PHOSPHORUS 3.4 mg/dl (2.5-4.9)
[2017-09-16 08:10] LABS: MAGNESIUM 2.3 mg/dl (1.7-2.5)
[2017-09-16 08:16] LABS: ANION GAP 7 (8-16); BLOOD UREA NITROGEN 54 mg/dl (7-20); CALCIUM 8.8 mg/dl (8.4-10.2); CARBON DIOXIDE 28 mmol/L (21-31); CHLORIDE 115 mmol/L (97-110); CREATININE 0.67 mg/dl (0.44-1.00); GLUCOSE 232 mg/dl (70-220); POTASSIUM 3.5 mmol/L (3.5-5.1); SODIUM 146 mmol/L (135-144)
[2017-09-16] MEDS: INSULIN GLARGINE [LANTus] (100 UNITS/ML) SYG SC ×2 (08:17→12:50)
[2017-09-16] MEDS: INSULIN ASPART [NOVOLOG] 3 ML PEN SC ×4 (08:17→21:00)
[2017-09-16] MEDS: MONTELUKAST 10 MG TAB PO (21:05)
[2017-09-16] MEDS: NYSTATIN 30 GM POWDER BTL TOP (21:41)
[2017-09-17] MEDS: LACTULOSE 30ML CUP NGT ×6 (01:00→20:44)
[2017-09-17] MEDS: ACCU-CHEK XX (02:00)
[2017-09-17] MEDS: FAMOTIDINE 20 MG TAB NGT ×2 (08:17→20:46)
[2017-09-17] MEDS: NYSTATIN 30 GM POWDER BTL TOP ×2 (08:17→20:46)
[2017-09-17] MEDS: FUROSEMIDE 40 MG INJ IV (08:17)
[2017-09-17 08:18] LABS: ADD MAN DIFF? NO
[2017-09-17 08:23] LABS: ABNORMAL IP MESSAGE 1; BASOPHILS % 0.4 % (0.0-2.0); HEMATOCRIT 33.7 % (37.0-47.0); HEMOGLOBIN 10.4 g/dl (12.0-16.0); LYMPHOCYTES # 0.9 10^3/ul (0.8-2.9); LYMPHOCYTES % 12.6 % (15.0-51.0); MEAN CORPUSCULAR HEMOGLOBIN 32.4 pg (29.0-33.0); MEAN CORPUSCULAR HGB CONC 30.9 g/dl (32.0-37.0); MEAN PLATELET VOLUME 12.7 fl (7.4-10.4); MONOCYTE # 0.6 10^3/ul (0.3-0.9); MONOCYTES % 8.6 % (0.0-11.0); NEUTROPHIL # 5.1 10^3/ul (1.6-7.5); NEUTROPHILS % 75.2 % (39.0-77.0); NUCLEATED RED BLOOD CELLS% 0.4 /100WBC (0.0-0.0); RED BLOOD COUNT 3.21 10^6/ul (4.20-5.40); RED CELL DISTRIBUTION WIDTH 21.8 % (11.5-14.5)
[2017-09-17 08:23] LABS: WHITE BLOOD COUNT 6.8 10^3/ul (4.8-10.8)
[2017-09-17 08:25] LABS: POSITIVE DIFF @See below
[2017-09-17] MEDS: INSULIN GLARGINE [LANTus] (100 UNITS/ML) SYG SC (08:25)
[2017-09-17] MEDS: INSULIN ASPART [NOVOLOG] 3 ML PEN SC ×3 (08:25→16:49)
[2017-09-17 08:31] LABS: PLATELET COUNT 36 10^3/UL (140-415)
[2017-09-17 08:37] LABS: AMMONIA 65 umol/l (9-30)
[2017-09-17 08:46] LABS: ANION GAP 6 (8-16); BLOOD UREA NITROGEN 47 mg/dl (7-20); CALCIUM 8.7 mg/dl (8.4-10.2); CARBON DIOXIDE 29 mmol/L (21-31); CHLORIDE 113 mmol/L (97-110); CREATININE 0.55 mg/dl (0.44-1.00); GLUCOSE 208 mg/dl (70-220); PHOSPHORUS 3.4 mg/dl (2.5-4.9); POTASSIUM 3.9 mmol/L (3.5-5.1); SODIUM 144 mmol/L (135-144)
[2017-09-17 18:32] LABS: FOLATE 10.2 ng/ml (2.8-20.0)
[2017-09-17] MEDS: MONTELUKAST 10 MG TAB PO (20:46)
[2017-09-18] MEDS: LACTULOSE 30ML CUP NGT ×6 (00:17→20:14)
[2017-09-18] MEDS: INSULIN ASPART [NOVOLOG] 3 ML PEN SC ×6 (00:42→21:29)
[2017-09-18] MEDS: ACCU-CHEK XX (02:00)
[2017-09-18 07:19] LABS: AMMONIA 55 umol/l (9-30)
[2017-09-18 07:31] LABS: ANION GAP 6 (8-16); BLOOD UREA NITROGEN 37 mg/dl (7-20); CALCIUM 9.1 mg/dl (8.4-10.2); CARBON DIOXIDE 31 mmol/L (21-31); CHLORIDE 114 mmol/L (97-110); CREATININE 0.54 mg/dl (0.44-1.00); GLUCOSE 234 mg/dl (70-220); POTASSIUM 3.5 mmol/L (3.5-5.1); SODIUM 147 mmol/L (135-144)
[2017-09-18 08:17] LABS: WHITE BLOOD COUNT 5.6 10^3/ul (4.8-10.8)
[2017-09-18 08:17] LABS: ABNORMAL IP MESSAGE 1; HEMATOCRIT 36.3 % (37.0-47.0); HEMOGLOBIN 10.9 g/dl (12.0-16.0); MEAN CORPUSCULAR HEMOGLOBIN 31.8 pg (29.0-33.0); MEAN CORPUSCULAR VOLUME 105.8 fl (82.0-101.0); MEAN PLATELET VOLUME 11.3 fl (7.4-10.4); RED BLOOD COUNT 3.43 10^6/ul (4.20-5.40); RED CELL DISTRIBUTION WIDTH 21.5 % (11.5-14.5)
[2017-09-18 08:23] LABS: POSITIVE DIFF @See below
[2017-09-18 08:26] LABS: ADD MAN DIFF? YES; PLATELET COUNT 27 10^3/UL (140-415)
[2017-09-18] MEDS: FUROSEMIDE 40 MG INJ IV (09:00)
[2017-09-18] MEDS: FAMOTIDINE 20 MG TAB NGT ×2 (09:00→20:41)
[2017-09-18] MEDS: NYSTATIN 30 GM POWDER BTL TOP ×2 (09:01→20:42)
[2017-09-18] MEDS: INSULIN GLARGINE [LANTus] (100 UNITS/ML) SYG SC (09:06)
[2017-09-18 09:31] LABS: ANISOCYTOSIS 1+ (0-0); BAND NEUTROPHILS #M 0.2 10^3/ul (0.0-0.6); BAND NEUTROPHILS % (M) 4 % (0-4); BASOPHIL #M 0.1 10^3/ul (0.0-0.0); BASOPHILS % (M) 2 % (0-2); LYMPHOCYTES #M 0.5 10^3/ul (0.8-2.9); LYMPHOCYTES % (M) 9 % (15-51); METAMYELOCYTES %M 1 % (0-0); MONOCYTE #M 0.3 10^3/ul (0.3-0.9); MONOCYTES % (M) 7 % (0-11); PLATELET ESTIMATE SIG DECREASED; POLYCHROMASIA 3+ (0-0); SEG NEUT #M 4.3 10^3/ul (1.6-7.5); SEGMENTED NEUTROPHILS (M) % 77 % (39-77); SMUDGE%M 5 % (0-0)
[2017-09-18] MEDS: ACETAMINOPHEN 325 MG TAB PO (09:45)
[2017-09-18] MEDS: GABAPENTIN 100 MG CAP PO ×2 (14:41→20:13)
[2017-09-18] MEDS: MONTELUKAST 10 MG TAB PO (20:12)
[2017-09-19] MEDS: INSULIN ASPART [NOVOLOG] 3 ML PEN SC ×6 (01:33→20:46)
[2017-09-19] MEDS: LACTULOSE 30ML CUP NGT ×6 (01:35→20:30)
[2017-09-19] MEDS: FUROSEMIDE 40 MG TAB PO (05:14)
[2017-09-19 07:28] LABS: WHITE BLOOD COUNT 5.4 10^3/ul (4.8-10.8)
[2017-09-19 07:28] LABS: ABNORMAL IP MESSAGE 1; HEMATOCRIT 35.1 % (37.0-47.0); HEMOGLOBIN 10.6 g/dl (12.0-16.0); MEAN CORPUSCULAR HEMOGLOBIN 31.5 pg (29.0-33.0); MEAN CORPUSCULAR HGB CONC 30.2 g/dl (32.0-37.0); MEAN CORPUSCULAR VOLUME 104.5 fl (82.0-101.0); MEAN PLATELET VOLUME 12.7 fl (7.4-10.4); RED BLOOD COUNT 3.36 10^6/ul (4.20-5.40); RED CELL DISTRIBUTION WIDTH 21.8 % (11.5-14.5)
[2017-09-19 07:31] LABS: POSITIVE DIFF @See below
[2017-09-19 07:32] LABS: ADD MAN DIFF? YES; PLATELET COUNT 27 10^3/UL (140-415)
[2017-09-19 07:56] LABS: AMMONIA 42 umol/l (9-30)
[2017-09-19 08:09] LABS: ANION GAP 6 (8-16); BLOOD UREA NITROGEN 33 mg/dl (7-20); CALCIUM 8.9 mg/dl (8.4-10.2); CARBON DIOXIDE 34 mmol/L (21-31); CHLORIDE 111 mmol/L (97-110); CREATININE 0.52 mg/dl (0.44-1.00); GLUCOSE 198 mg/dl (70-220); POTASSIUM 3.7 mmol/L (3.5-5.1); SODIUM 147 mmol/L (135-144)
[2017-09-19 08:39] LABS: ANISOCYTOSIS 1+ (0-0); ERYTHROBLAST% (NRBC) (M) 2 % (0-0); LYMPHOCYTES #M 0.8 10^3/ul (0.8-2.9); LYMPHOCYTES % (M) 15 % (15-51); METAMYELOCYTES #M 0.2 10^3/ul (0.0-0.0); METAMYELOCYTES %M 4 % (0-0); MONOCYTE #M 0.2 10^3/ul (0.3-0.9); MONOCYTES % (M) 5 % (0-11); PLATELET ESTIMATE SIG DECREASED; POLYCHROMASIA 1+ (0-0); SEGMENTED NEUTROPHILS (M) % 76 % (39-77); SMUDGE%M 2 % (0-0); TARGET CELLS 1+ (0-0)
[2017-09-19] MEDS: FAMOTIDINE 20 MG TAB NGT (09:25)
[2017-09-19] MEDS: GABAPENTIN 100 MG CAP PO ×3 (09:25→20:31)
[2017-09-19] MEDS: NYSTATIN 30 GM POWDER BTL TOP ×2 (09:26→20:40)
[2017-09-19] MEDS: INSULIN GLARGINE [LANTus] (100 UNITS/ML) SYG SC (09:38)
[2017-09-19] MEDS ORDERED: MAGNESIUM HYDROXIDE 30ML CUP PO (13:30)
[2017-09-19] MEDS: MONTELUKAST 10 MG TAB PO (20:31)
[2017-09-20] MEDS: LACTULOSE 30ML CUP NGT ×6 (01:20→20:56)
[2017-09-20] MEDS: INSULIN ASPART [NOVOLOG] 3 ML PEN SC ×6 (01:28→21:26)
[2017-09-20] MEDS: FUROSEMIDE 40 MG TAB PO (05:34)
[2017-09-20 06:41] LABS: ABNORMAL IP MESSAGE 1; HEMATOCRIT 36.5 % (37.0-47.0); HEMOGLOBIN 11.1 g/dl (12.0-16.0); MEAN CORPUSCULAR HEMOGLOBIN 31.6 pg (29.0-33.0); MEAN CORPUSCULAR HGB CONC 30.4 g/dl (32.0-37.0); MEAN PLATELET VOLUME 12.3 fl (7.4-10.4); RED BLOOD COUNT 3.51 10^6/ul (4.20-5.40); RED CELL DISTRIBUTION WIDTH 21.4 % (11.5-14.5)
[2017-09-20 06:41] LABS: WHITE BLOOD COUNT 5.7 10^3/ul (4.8-10.8)
[2017-09-20 06:57] LABS: AMMONIA 33 umol/l (9-30)
[2017-09-20 07:02] LABS: POSITIVE DIFF @See below
[2017-09-20 07:04] LABS: ADD MAN DIFF? YES; PLATELET COUNT 22 10^3/UL (140-415)
[2017-09-20 07:07] LABS: PHOSPHORUS 3.1 mg/dl (2.5-4.9)
[2017-09-20 07:07] LABS: ANION GAP 5 (8-16); BLOOD UREA NITROGEN 30 mg/dl (7-20); CALCIUM 8.6 mg/dl (8.4-10.2); CARBON DIOXIDE 31 mmol/L (21-31); CHLORIDE 109 mmol/L (97-110); CREATININE 0.49 mg/dl (0.44-1.00); GLUCOSE 238 mg/dl (70-220); MAGNESIUM 1.6 mg/dl (1.7-2.5); SODIUM 141 mmol/L (135-144)
[2017-09-20] MEDS: GABAPENTIN 100 MG CAP PO ×3 (08:59→20:57)
[2017-09-20] MEDS: NYSTATIN 30 GM POWDER BTL TOP ×2 (09:00→20:56)
[2017-09-20] MEDS: INSULIN GLARGINE [LANTus] (100 UNITS/ML) SYG SC (09:10)
[2017-09-20 10:37] LABS: ANISOCYTOSIS 1+ (0-0); BAND NEUTROPHILS #M 0.5 10^3/ul (0.0-0.6); BAND NEUTROPHILS % (M) 9 % (0-4); LYMPHOCYTES #M 0.3 10^3/ul (0.8-2.9); LYMPHOCYTES % (M) 7 % (15-51); MONOCYTE #M 0.2 10^3/ul (0.3-0.9); MONOCYTES % (M) 4 % (0-11); MYELOCYTES #M 0.1 10^3/ul (0.0-0.0); MYELOCYTES % (M) 3 % (0-0); PLATELET ESTIMATE SIG DECREASED; POLYCHROMASIA 3+ (0-0); REACTIVE LYMPHOCYTES% (M) 1 % (0-0); SEG NEUT #M 4.4 10^3/ul (1.6-7.5); SEGMENTED NEUTROPHILS (M) % 76 % (39-77); SMUDGE%M 9 % (0-0)
[2017-09-20] MEDS: MAGNESIUM OXIDE 400 MG TAB NGT (12:54)
[2017-09-20] MEDS: MONTELUKAST 10 MG TAB PO (20:57)
[2017-09-21] MEDS: INSULIN ASPART [NOVOLOG] 3 ML PEN SC ×6 (01:40→21:00)
[2017-09-21] MEDS: LACTULOSE 30ML CUP NGT ×7 (01:47→23:21)
[2017-09-21] MEDS ORDERED: DEXTROSE 50% 50 ML SYRINGE IV (04:00)
[2017-09-21] MEDS: LEVALBUTEROL (NEB) 0.63 MG/3 ML AMP HHN (04:58)
[2017-09-21] MEDS: FUROSEMIDE 40 MG TAB PO (06:23)
[2017-09-21] MEDS ORDERED: INSULIN GLARGINE [LANTus] (100 UNITS/ML) SYG SC (08:00)
[2017-09-21 08:06] LABS: ADD MAN DIFF? NO
[2017-09-21 08:08] LABS: WHITE BLOOD COUNT 6.7 10^3/ul (4.8-10.8)
[2017-09-21 08:08] LABS: ABNORMAL IP MESSAGE 1; BASOPHIL # 0.1 10^3/ul (0.0-0.1); BASOPHILS % 0.7 % (0.0-2.0); HEMATOCRIT 35.5 % (37.0-47.0); LYMPHOCYTES # 1.1 10^3/ul (0.8-2.9); LYMPHOCYTES % 15.7 % (15.0-51.0); MEAN CORPUSCULAR HEMOGLOBIN 32.3 pg (29.0-33.0); MEAN CORPUSCULAR VOLUME 104.1 fl (82.0-101.0); MEAN PLATELET VOLUME 12.6 fl (7.4-10.4); MONOCYTE # 0.6 10^3/ul (0.3-0.9); MONOCYTES % 9.3 % (0.0-11.0); NEUTROPHIL # 4.9 10^3/ul (1.6-7.5); NEUTROPHILS % 72.2 % (39.0-77.0); RED BLOOD COUNT 3.41 10^6/ul (4.20-5.40); RED CELL DISTRIBUTION WIDTH 21.3 % (11.5-14.5)
[2017-09-21 08:20] LABS: PLATELET COUNT 24 10^3/UL (140-415); POSITIVE DIFF @See below
[2017-09-21] MEDS: NYSTATIN 30 GM POWDER BTL TOP ×2 (09:00→23:21)
[2017-09-21] MEDS: INSULIN GLARGINE [LANTus] (100 UNITS/ML) SYG SC (09:00)
[2017-09-21 09:12] LABS: ANION GAP 6 (8-16); BLOOD UREA NITROGEN 28 mg/dl (7-20); CALCIUM 8.7 mg/dl (8.4-10.2); CARBON DIOXIDE 30 mmol/L (21-31); CHLORIDE 108 mmol/L (97-110); CREATININE 0.51 mg/dl (0.44-1.00); GLUCOSE 259 mg/dl (70-220); POTASSIUM 3.8 mmol/L (3.5-5.1); SODIUM 140 mmol/L (135-144)
[2017-09-21] MEDS: FAMOTIDINE 20 MG TAB NGT ×2 (10:00→21:01)
[2017-09-21] MEDS: GABAPENTIN 100 MG CAP PO ×3 (10:00→21:01)
[2017-09-21] MEDS: MONTELUKAST 10 MG TAB PO (23:21)
[2017-09-22] MEDS: INSULIN ASPART [NOVOLOG] 3 ML PEN SC ×6 (00:29→21:00)
[2017-09-22] MEDS: LACTULOSE 30ML CUP NGT ×3 (05:49→18:00)
[2017-09-22] MEDS: FUROSEMIDE 40 MG TAB PO (05:49)
[2017-09-22] MEDS: BARIUM SULFATE 135 ML (E-Z HD) PO (08:46)
[2017-09-22] MEDS: FAMOTIDINE 20 MG TAB NGT ×2 (09:00→21:00)
[2017-09-22] MEDS: GABAPENTIN 100 MG CAP PO ×3 (09:00→21:00)
[2017-09-22] MEDS: NYSTATIN 30 GM POWDER BTL TOP ×2 (09:00→22:32)
[2017-09-22] MEDS: INSULIN GLARGINE [LANTus] (100 UNITS/ML) SYG SC (09:01)
[2017-09-22 09:19] LABS: ADD MAN DIFF? NO
[2017-09-22 09:23] LABS: ABNORMAL IP MESSAGE 1; BASOPHIL # 0.1 10^3/ul (0.0-0.1); BASOPHILS % 0.9 % (0.0-2.0); HEMATOCRIT 34.1 % (37.0-47.0); HEMOGLOBIN 10.4 g/dl (12.0-16.0); LYMPHOCYTES # 1.1 10^3/ul (0.8-2.9); MEAN CORPUSCULAR HEMOGLOBIN 31.6 pg (29.0-33.0); MEAN CORPUSCULAR HGB CONC 30.5 g/dl (32.0-37.0); MEAN CORPUSCULAR VOLUME 103.6 fl (82.0-101.0); MEAN PLATELET VOLUME 13.1 fl (7.4-10.4); MONOCYTE # 0.5 10^3/ul (0.3-0.9); MONOCYTES % 8.5 % (0.0-11.0); NEUTROPHIL # 3.7 10^3/ul (1.6-7.5); NEUTROPHILS % 68.4 % (39.0-77.0); RED BLOOD COUNT 3.29 10^6/ul (4.20-5.40); RED CELL DISTRIBUTION WIDTH 21.2 % (11.5-14.5)
[2017-09-22 09:23] LABS: WHITE BLOOD COUNT 5.4 10^3/ul (4.8-10.8)
[2017-09-22 09:24] LABS: POSITIVE DIFF @See below
[2017-09-22 09:30] LABS: PLATELET COUNT 18 10^3/UL (140-415)
[2017-09-22 09:44] LABS: ALANINE AMINOTRANSFERASE 55 IU/L (13-69); ALBUMIN 1.9 g/dl (3.3-4.9); ALBUMIN/GLOBULIN RATIO 0.44; ALKALINE PHOSPHATASE 132 IU/L (42-121); ANION GAP 4 (8-16); ASPARTATE AMINO TRANSFERASE 64 IU/L (15-46); BILIRUBIN,INDIRECT 2.4 mg/dl (0-1.1); BILIRUBIN,TOTAL 2.4 mg/dl (0.2-1.3); BLOOD UREA NITROGEN 26 mg/dl (7-20); CALCIUM 8.5 mg/dl (8.4-10.2); CARBON DIOXIDE 33 mmol/L (21-31); CHLORIDE 105 mmol/L (97-110); CREATININE 0.47 mg/dl (0.44-1.00); GLUCOSE 239 mg/dl (70-220); POTASSIUM 3.7 mmol/L (3.5-5.1); SODIUM 138 mmol/L (135-144); TOTAL PROTEIN 6.2 g/dl (6.1-8.1)
[2017-09-22 18:29] LABS: HIV 1&2 ANTIBODY NEGATIVE (NEGATIVE)
[2017-09-22] MEDS: MONTELUKAST 10 MG TAB PO (21:00)
[2017-09-22] MEDS: SOD CHLORIDE 0.9% 1,000 ML IV (22:32)
[2017-09-23] MEDS: INSULIN ASPART [NOVOLOG] 3 ML PEN SC ×6 (01:00→21:00)
[2017-09-23] MEDS: LACTULOSE 30ML CUP NGT ×4 (06:00→18:00)
[2017-09-23 06:37] LABS: WHITE BLOOD COUNT 4.2 10^3/ul (4.8-10.8)
[2017-09-23 06:37] LABS: ABNORMAL IP MESSAGE 1; HEMATOCRIT 32.9 % (37.0-47.0); HEMOGLOBIN 10.1 g/dl (12.0-16.0); MEAN CORPUSCULAR HEMOGLOBIN 31.9 pg (29.0-33.0); MEAN CORPUSCULAR HGB CONC 30.7 g/dl (32.0-37.0); MEAN CORPUSCULAR VOLUME 103.8 fl (82.0-101.0); MEAN PLATELET VOLUME 13.4 fl (7.4-10.4); RED BLOOD COUNT 3.17 10^6/ul (4.20-5.40); RED CELL DISTRIBUTION WIDTH 21.2 % (11.5-14.5)
[2017-09-23 07:00] LABS: POSITIVE DIFF @See below
[2017-09-23 07:03] LABS: ADD MAN DIFF? YES; PLATELET COUNT 16 10^3/UL (140-415)
[2017-09-23] MEDS ORDERED: INSULIN GLARGINE [LANTus] (100 UNITS/ML) SYG SC (08:00)
[2017-09-23 08:27] LABS: ANISOCYTOSIS 1+ (0-0); BAND NEUTROPHILS #M 0.2 10^3/ul (0.0-0.6); BAND NEUTROPHILS % (M) 5 % (0-4); BASOPHILS % (M) 1 % (0-2); EOSINOPHILS % (M) 1 % (0-7); GIANT THROMBO% (M) 1 % (0-0); LYMPHOCYTES #M 0.5 10^3/ul (0.8-2.9); LYMPHOCYTES % (M) 14 % (15-51); MONOCYTE #M 0.5 10^3/ul (0.3-0.9); MONOCYTES % (M) 13 % (0-11); MYELOCYTES #M 0.1 10^3/ul (0.0-0.0); MYELOCYTES % (M) 3 % (0-0); PLATELET ESTIMATE SIG DECREASED; SEG NEUT #M 2.7 10^3/ul (1.6-7.5); SEGMENTED NEUTROPHILS (M) % 63 % (39-77); SMUDGE%M 21 % (0-0)
[2017-09-23] MEDS: GABAPENTIN 100 MG CAP PO ×3 (09:00→20:08)
[2017-09-23] MEDS: FAMOTIDINE 20 MG TAB NGT ×2 (09:00→20:08)
[2017-09-23] MEDS: INSULIN GLARGINE [LANTus] (100 UNITS/ML) SYG SC (10:31)
[2017-09-23] MEDS: NYSTATIN 30 GM POWDER BTL TOP ×2 (10:38→21:04)
[2017-09-23] MEDS: DEXTROSE 50% 50 ML SYRINGE IV (18:28)
[2017-09-23] MEDS: DEXTROSE 5%-0.9% NACL 1,000 ML IV (19:58)
[2017-09-23] MEDS: MONTELUKAST 10 MG TAB PO (20:08)
[2017-09-24] MEDS: INSULIN ASPART [NOVOLOG] 3 ML PEN SC ×6 (01:00→21:00)
[2017-09-24] MEDS: LACTULOSE 30ML CUP NGT ×4 (06:00→17:40)
[2017-09-24 06:44] LABS: ABNORMAL IP MESSAGE 1; HEMATOCRIT 32.3 % (37.0-47.0); MEAN CORPUSCULAR HEMOGLOBIN 32.5 pg (29.0-33.0); MEAN CORPUSCULAR VOLUME 104.9 fl (82.0-101.0); MEAN PLATELET VOLUME 12.6 fl (7.4-10.4); RED BLOOD COUNT 3.08 10^6/ul (4.20-5.40); RED CELL DISTRIBUTION WIDTH 21.6 % (11.5-14.5)
[2017-09-24 06:44] LABS: WHITE BLOOD COUNT 3.8 10^3/ul (4.8-10.8)
[2017-09-24 07:07] LABS: ADD MAN DIFF? YES; PLATELET COUNT 18 10^3/UL (140-415); POSITIVE DIFF @See below
[2017-09-24 07:26] LABS: ALANINE AMINOTRANSFERASE 56 IU/L (13-69); ALBUMIN 1.8 g/dl (3.3-4.9); ALBUMIN/GLOBULIN RATIO 0.43; ALKALINE PHOSPHATASE 118 IU/L (42-121); ANION GAP 5 (8-16); ASPARTATE AMINO TRANSFERASE 68 IU/L (15-46); BILIRUBIN,INDIRECT 2.3 mg/dl (0-1.1); BILIRUBIN,TOTAL 2.5 mg/dl (0.2-1.3); BLOOD UREA NITROGEN 23 mg/dl (7-20); CALCIUM 8.1 mg/dl (8.4-10.2); CARBON DIOXIDE 33 mmol/L (21-31); CHLORIDE 110 mmol/L (97-110); CREATININE 0.39 mg/dl (0.44-1.00); GLUCOSE 83 mg/dl (70-220); MAGNESIUM 1.6 mg/dl (1.7-2.5); PHOSPHORUS 3.6 mg/dl (2.5-4.9); SODIUM 144 mmol/L (135-144); TOTAL PROTEIN 5.9 g/dl (6.1-8.1)
[2017-09-24] MEDS: GABAPENTIN 100 MG CAP PO ×3 (09:00→21:00)
[2017-09-24] MEDS: FAMOTIDINE 20 MG TAB NGT (09:00)
[2017-09-24 09:16] LABS: ANISOCYTOSIS 2+ (0-0); BAND NEUTROPHILS #M 0.4 10^3/ul (0.0-0.6); BAND NEUTROPHILS % (M) 11 % (0-4); BASOPHILS % (M) 1 % (0-2); GIANT THROMBO% (M) 1 % (0-0); LYMPHOCYTES #M 0.3 10^3/ul (0.8-2.9); LYMPHOCYTES % (M) 10 % (15-51); METAMYELOCYTES %M 1 % (0-0); MONOCYTE #M 0.1 10^3/ul (0.3-0.9); MONOCYTES % (M) 4 % (0-11); MYELOCYTES % (M) 2 % (0-0); PLATELET ESTIMATE SIG DECREASED; POLYCHROMASIA 2+ (0-0); REACTIVE LYMPHOCYTES #M 0.1 10^3/ul (0.0-0.0); REACTIVE LYMPHOCYTES% (M) 3 % (0-0); SEG NEUT #M 2.6 10^3/ul (1.6-7.5); SEGMENTED NEUTROPHILS (M) % 68 % (39-77); SMUDGE%M 18 % (0-0)
[2017-09-24] MEDS: NYSTATIN 30 GM POWDER BTL TOP ×2 (09:18→21:48)
[2017-09-24] MEDS: DEXTROSE 5%-0.9% NACL 1,000 ML IV (19:30)
[2017-09-24] MEDS: MONTELUKAST 10 MG TAB PO (21:00)
[2017-09-25] MEDS: INSULIN ASPART [NOVOLOG] 3 ML PEN SC ×6 (01:00→20:53)
[2017-09-25] MEDS: LACTULOSE 30ML CUP NGT ×3 (05:47→12:00)
[2017-09-25 08:12] LABS: ADD MAN DIFF? NO
[2017-09-25 08:21] LABS: ABNORMAL IP MESSAGE 1; BASOPHILS % 1.1 % (0.0-2.0); HEMATOCRIT 33.3 % (37.0-47.0); HEMOGLOBIN 10.2 g/dl (12.0-16.0); IMMATURE GRANS #M 0.07 10^3/ul; LYMPHOCYTES # 1.2 10^3/ul (0.8-2.9); LYMPHOCYTES % 32.8 % (15.0-51.0); MEAN CORPUSCULAR HEMOGLOBIN 32.2 pg (29.0-33.0); MEAN CORPUSCULAR HGB CONC 30.6 g/dl (32.0-37.0); MEAN PLATELET VOLUME 12.5 fl (7.4-10.4); MONOCYTE # 0.4 10^3/ul (0.3-0.9); MONOCYTES % 10.7 % (0.0-11.0); NEUTROPHIL # 1.9 10^3/ul (1.6-7.5); NEUTROPHILS % 53.4 % (39.0-77.0); RED BLOOD COUNT 3.17 10^6/ul (4.20-5.40); RED CELL DISTRIBUTION WIDTH 22.2 % (11.5-14.5)
[2017-09-25 08:21] LABS: WHITE BLOOD COUNT 3.5 10^3/ul (4.8-10.8)
[2017-09-25 08:35] LABS: POSITIVE DIFF @See below
[2017-09-25 08:40] LABS: PLATELET COUNT 21 10^3/UL (140-415)
[2017-09-25] MEDS: NYSTATIN 30 GM POWDER BTL TOP ×2 (08:49→20:52)
[2017-09-25] MEDS: GABAPENTIN 100 MG CAP PO (08:49)
[2017-09-25 08:50] LABS: ANION GAP 5 (8-16); BLOOD UREA NITROGEN 19 mg/dl (7-20); CARBON DIOXIDE 33 mmol/L (21-31); CHLORIDE 111 mmol/L (97-110); CREATININE 0.45 mg/dl (0.44-1.00); GLUCOSE 76 mg/dl (70-220); MAGNESIUM 1.6 mg/dl (1.7-2.5); PHOSPHORUS 3.2 mg/dl (2.5-4.9); POTASSIUM 3.8 mmol/L (3.5-5.1); SODIUM 145 mmol/L (135-144)
[2017-09-25] MEDS: MAGNESIUM SULFATE 2 GM/50 ML 50 ML IVPB (13:54)
[2017-09-25] MEDS: DEXTROSE 5%-0.9% NACL 1,000 ML IV (19:30)
[2017-09-26] MEDS: INSULIN ASPART [NOVOLOG] 3 ML PEN SC ×6 (01:00→20:39)
[2017-09-26] MEDS: NYSTATIN 30 GM POWDER BTL TOP ×2 (09:00→20:32)
[2017-09-26] MEDS: LEVALBUTEROL (NEB) 0.63 MG/3 ML AMP HHN (23:15)
[2017-09-27] MEDS: INSULIN ASPART [NOVOLOG] 3 ML PEN SC ×6 (01:27→20:35)
[2017-09-27 07:37] LABS: ADD MAN DIFF? NO
[2017-09-27 07:42] LABS: WHITE BLOOD COUNT 3.8 10^3/ul (4.8-10.8)
[2017-09-27 07:42] LABS: ABNORMAL IP MESSAGE 1; BASOPHILS % 0.8 % (0.0-2.0); HEMATOCRIT 31.9 % (37.0-47.0); IMMATURE GRANS % (M) 2.6 %; LYMPHOCYTES # 1.3 10^3/ul (0.8-2.9); LYMPHOCYTES % 34.6 % (15.0-51.0); MEAN CORPUSCULAR HEMOGLOBIN 32.8 pg (29.0-33.0); MEAN CORPUSCULAR HGB CONC 31.3 g/dl (32.0-37.0); MEAN CORPUSCULAR VOLUME 104.6 fl (82.0-101.0); MEAN PLATELET VOLUME 11.8 fl (7.4-10.4); MONOCYTE # 0.5 10^3/ul (0.3-0.9); NEUTROPHIL # 1.9 10^3/ul (1.6-7.5); RED BLOOD COUNT 3.05 10^6/ul (4.20-5.40); RED CELL DISTRIBUTION WIDTH 21.7 % (11.5-14.5)
[2017-09-27 07:45] LABS: POSITIVE DIFF @See below
[2017-09-27 07:47] LABS: PLATELET COUNT 23 10^3/UL (140-415)
[2017-09-27 08:02] LABS: ANION GAP 4 (8-16); BLOOD UREA NITROGEN 13 mg/dl (7-20); CALCIUM 7.7 mg/dl (8.4-10.2); CARBON DIOXIDE 32 mmol/L (21-31); CHLORIDE 109 mmol/L (97-110); CREATININE 0.46 mg/dl (0.44-1.00); GLUCOSE 111 mg/dl (70-220); MAGNESIUM 1.6 mg/dl (1.7-2.5); PHOSPHORUS 2.8 mg/dl (2.5-4.9); POTASSIUM 3.8 mmol/L (3.5-5.1); SODIUM 141 mmol/L (135-144)
[2017-09-27] MEDS: NYSTATIN 30 GM POWDER BTL TOP ×2 (08:54→20:35)
[2017-09-27] MEDS: MAGNESIUM SULFATE 2 GM/50 ML 50 ML IVPB (11:35)
[2017-09-27] MEDS: LACTULOSE 30ML CUP PO ×3 (12:30→23:06)
[2017-09-28] MEDS: ACCU-CHEK XX (02:00)
[2017-09-28] MEDS: LACTULOSE 30ML CUP PO ×3 (05:52→21:05)
[2017-09-28] MEDS: NYSTATIN 30 GM POWDER BTL TOP ×2 (08:22→21:02)
[2017-09-28] MEDS: INSULIN ASPART [NOVOLOG] 3 ML PEN SC ×4 (08:27→21:03)
[2017-09-28 08:40] LABS: ADD MAN DIFF? NO
[2017-09-28 08:44] LABS: WHITE BLOOD COUNT 4.2 10^3/ul (4.8-10.8)
[2017-09-28 08:44] LABS: ABNORMAL IP MESSAGE 1; BASOPHILS % 0.7 % (0.0-2.0); HEMATOCRIT 31.9 % (37.0-47.0); IMMATURE GRANS #M 0.13 10^3/ul; IMMATURE GRANS % (M) 3.1 %; LYMPHOCYTES # 1.4 10^3/ul (0.8-2.9); LYMPHOCYTES % 32.7 % (15.0-51.0); MEAN CORPUSCULAR HEMOGLOBIN 32.3 pg (29.0-33.0); MEAN CORPUSCULAR HGB CONC 31.3 g/dl (32.0-37.0); MEAN CORPUSCULAR VOLUME 102.9 fl (82.0-101.0); MEAN PLATELET VOLUME 11.6 fl (7.4-10.4); MONOCYTE # 0.5 10^3/ul (0.3-0.9); MONOCYTES % 12.9 % (0.0-11.0); NEUTROPHIL # 2.1 10^3/ul (1.6-7.5); NEUTROPHILS % 50.6 % (39.0-77.0); PLATELET COUNT 53 10^3/UL (140-415)
[2017-09-28 08:47] LABS: POSITIVE DIFF @See below
[2017-09-28 09:03] LABS: AMMONIA 20 umol/l (9-30)
[2017-09-28 09:08] LABS: PHOSPHORUS 2.6 mg/dl (2.5-4.9)
[2017-09-28 09:08] LABS: MAGNESIUM 1.7 mg/dl (1.7-2.5)
[2017-09-28 09:41] LABS: ANION GAP 6 (8-16); BLOOD UREA NITROGEN 10 mg/dl (7-20); CALCIUM 7.6 mg/dl (8.4-10.2); CARBON DIOXIDE 29 mmol/L (21-31); CHLORIDE 104 mmol/L (97-110); CREATININE 0.41 mg/dl (0.44-1.00); GLUCOSE 201 mg/dl (70-220); POTASSIUM 4.3 mmol/L (3.5-5.1); SODIUM 135 mmol/L (135-144)
[2017-09-28] MEDS: ACETAMINOPHEN 325 MG TAB PO (12:05)
[2017-09-28 16:30] LABS: ADD UMIC YES; UR ASCORBIC ACID NEGATIVE (NEGATIVE); UR BACTERIA FEW /HPF (NONE SEEN); UR BILIRUBIN (Dip) NEGATIVE (NEGATIVE); UR BLOOD (Dip) 3+ mg/dL (NEGATIVE); UR BUDDING YEAST MANY /HPF (NONE SEEN); UR CLARITY SLIGHTLY CLOUDY (CLEAR); UR COLOR AMBER (YELLOW); UR GLUCOSE (Dip) NEGATIVE (NEGATIVE); UR KETONES (Dip) NEGATIVE (NEGATIVE); UR LEUKOCYTE ESTERASE (Dip) 2+ Leu/ul (NEGATIVE); UR MUCUS MODERATE /HPF (NONE SEEN); UR NITRITE (Dip) NEGATIVE (NEGATIVE); UR RBC 159 /HPF (0-5); UR SPECIFIC GRAVITY (Dip) 1.021 (1.003-1.030); UR TOTAL PROTEIN (Dip) 1+ mg/dl (NEGATIVE); UR UROBILINOGEN (Dip) 2+ mg/dL (NEGATIVE); UR WBC 85 /HPF (0-5)
[2017-09-28] MEDS: HYDROCODONE/APAP (5/325) TAB PO (22:45)
[2017-09-29] MEDS: ACCU-CHEK XX (02:00)
[2017-09-29] MEDS: LACTULOSE 30ML CUP PO ×3 (05:12→21:16)
[2017-09-29] MEDS: PANTOPRAZOLE 40 MG INJ IV (05:12)
[2017-09-29] MEDS: INSULIN ASPART [NOVOLOG] 3 ML PEN SC ×4 (07:51→20:32)
[2017-09-29] MEDS: NYSTATIN 30 GM POWDER BTL TOP ×2 (09:25→20:32)
[2017-09-29 10:28] LABS: ADD MAN DIFF? NO
[2017-09-29 10:46] LABS: ABNORMAL IP MESSAGE 1; BASOPHILS % 1.1 % (0.0-2.0); HEMATOCRIT 30.9 % (37.0-47.0); HEMOGLOBIN 9.8 g/dl (12.0-16.0); LYMPHOCYTES # 1.2 10^3/ul (0.8-2.9); LYMPHOCYTES % 31.4 % (15.0-51.0); MEAN CORPUSCULAR HEMOGLOBIN 33.1 pg (29.0-33.0); MEAN CORPUSCULAR HGB CONC 31.7 g/dl (32.0-37.0); MEAN CORPUSCULAR VOLUME 104.4 fl (82.0-101.0); MEAN PLATELET VOLUME 11.9 fl (7.4-10.4); MONOCYTE # 0.5 10^3/ul (0.3-0.9); MONOCYTES % 12.8 % (0.0-11.0); NEUTROPHIL # 1.9 10^3/ul (1.6-7.5); NEUTROPHILS % 50.2 % (39.0-77.0); PLATELET COUNT 38 10^3/UL (140-415); RED BLOOD COUNT 2.96 10^6/ul (4.20-5.40); RED CELL DISTRIBUTION WIDTH 20.8 % (11.5-14.5)
[2017-09-29 10:46] LABS: WHITE BLOOD COUNT 3.8 10^3/ul (4.8-10.8)
[2017-09-29 10:47] LABS: POSITIVE DIFF @See below
[2017-09-29 11:07] LABS: MAGNESIUM 1.5 mg/dl (1.7-2.5)
[2017-09-29 11:10] LABS: ANION GAP 7 (8-16); BLOOD UREA NITROGEN 8 mg/dl (7-20); CALCIUM 7.5 mg/dl (8.4-10.2); CARBON DIOXIDE 30 mmol/L (21-31); CHLORIDE 104 mmol/L (97-110); CREATININE 0.43 mg/dl (0.44-1.00); GLUCOSE 194 mg/dl (70-220); POTASSIUM 3.9 mmol/L (3.5-5.1); SODIUM 137 mmol/L (135-144)
[2017-09-29] MEDS: MAGNESIUM SULFATE 2 GM/50 ML 50 ML IVPB (14:12)
[2017-09-29] MEDS: ACETAMINOPHEN 325 MG TAB PO (16:12)
[2017-09-30] MEDS: ACCU-CHEK XX (01:58)
[2017-09-30] MEDS: LACTULOSE 30ML CUP PO ×3 (06:00→21:54)
[2017-09-30] MEDS: PANTOPRAZOLE 40 MG INJ IV (06:09)
[2017-09-30] MEDS: INSULIN ASPART [NOVOLOG] 3 ML PEN SC ×4 (08:26→20:26)
[2017-09-30] MEDS: HYDROCODONE/APAP (5/325) TAB PO ×2 (09:44→20:22)
[2017-09-30] MEDS: NYSTATIN 30 GM POWDER BTL TOP ×2 (09:50→20:24)
[2017-09-30 10:05] LABS: ADD MAN DIFF? NO
[2017-09-30 10:07] LABS: ABNORMAL IP MESSAGE 1; BASOPHILS % 0.7 % (0.0-2.0); HEMATOCRIT 31.8 % (37.0-47.0); HEMOGLOBIN 10.3 g/dl (12.0-16.0); LYMPHOCYTES # 1.2 10^3/ul (0.8-2.9); LYMPHOCYTES % 29.4 % (15.0-51.0); MEAN CORPUSCULAR HEMOGLOBIN 33.3 pg (29.0-33.0); MEAN CORPUSCULAR HGB CONC 32.4 g/dl (32.0-37.0); MEAN CORPUSCULAR VOLUME 102.9 fl (82.0-101.0); MEAN PLATELET VOLUME 11.9 fl (7.4-10.4); MONOCYTE # 0.6 10^3/ul (0.3-0.9); MONOCYTES % 13.6 % (0.0-11.0); NEUTROPHIL # 2.2 10^3/ul (1.6-7.5); PLATELET COUNT 40 10^3/UL (140-415); RED BLOOD COUNT 3.09 10^6/ul (4.20-5.40); RED CELL DISTRIBUTION WIDTH 20.7 % (11.5-14.5)
[2017-09-30 10:07] LABS: WHITE BLOOD COUNT 4.2 10^3/ul (4.8-10.8)
[2017-09-30 10:12] LABS: POSITIVE DIFF @See below
[2017-09-30 10:25] LABS: ANION GAP 7 (8-16); CALCIUM 7.6 mg/dl (8.4-10.2); CARBON DIOXIDE 30 mmol/L (21-31); CHLORIDE 102 mmol/L (97-110); CREATININE 0.45 mg/dl (0.44-1.00); GLUCOSE 165 mg/dl (70-220); POTASSIUM 4.3 mmol/L (3.5-5.1); SODIUM 135 mmol/L (135-144)
[2017-09-30 10:55] LABS: BLOOD UREA NITROGEN 7 mg/dl (7-20)
[2017-09-30] MEDS: MICONAZOLE 200 MG VAG SUPP VAG (21:46)
[2017-10-01] MEDS: ACCU-CHEK XX (02:00)
[2017-10-01] MEDS: PANTOPRAZOLE 40 MG INJ IV (05:04)
[2017-10-01] MEDS: LACTULOSE 30ML CUP PO ×3 (05:11→22:00)
[2017-10-01 06:11] LABS: ADD MAN DIFF? NO
[2017-10-01 06:46] LABS: WHITE BLOOD COUNT 4.7 10^3/ul (4.8-10.8)
[2017-10-01 06:46] LABS: ABNORMAL IP MESSAGE 1; BASOPHILS % 0.6 % (0.0-2.0); HEMATOCRIT 30.6 % (37.0-47.0); HEMOGLOBIN 9.7 g/dl (12.0-16.0); LYMPHOCYTES # 1.4 10^3/ul (0.8-2.9); LYMPHOCYTES % 30.3 % (15.0-51.0); MEAN CORPUSCULAR HEMOGLOBIN 32.7 pg (29.0-33.0); MEAN CORPUSCULAR HGB CONC 31.7 g/dl (32.0-37.0); MEAN PLATELET VOLUME 11.7 fl (7.4-10.4); MONOCYTE # 0.6 10^3/ul (0.3-0.9); MONOCYTES % 12.7 % (0.0-11.0); NEUTROPHIL # 2.4 10^3/ul (1.6-7.5); NEUTROPHILS % 51.7 % (39.0-77.0); PLATELET COUNT 46 10^3/UL (140-415); RED BLOOD COUNT 2.97 10^6/ul (4.20-5.40); RED CELL DISTRIBUTION WIDTH 20.6 % (11.5-14.5)
[2017-10-01 06:47] LABS: POSITIVE DIFF @See below
[2017-10-01 07:09] LABS: ANION GAP 8 (8-16); BLOOD UREA NITROGEN 8 mg/dl (7-20); CALCIUM 7.6 mg/dl (8.4-10.2); CARBON DIOXIDE 31 mmol/L (21-31); CHLORIDE 102 mmol/L (97-110); CREATININE 0.49 mg/dl (0.44-1.00); GLUCOSE 185 mg/dl (70-220); POTASSIUM 4.6 mmol/L (3.5-5.1); SODIUM 136 mmol/L (135-144)
[2017-10-01] MEDS: INSULIN ASPART [NOVOLOG] 3 ML PEN SC ×4 (08:30→20:17)
[2017-10-01] MEDS: HYDROCODONE/APAP (5/325) TAB PO ×2 (10:04→23:05)
[2017-10-01] MEDS: NYSTATIN 30 GM POWDER BTL TOP ×2 (10:24→20:10)
[2017-10-01] MEDS: LEVOFLOXACIN 500 MG TAB PO (12:00)
[2017-10-01] MEDS: ACETAMINOPHEN 325 MG TAB PO (15:40)
[2017-10-01] MEDS: MICONAZOLE 200 MG VAG SUPP VAG (20:14)
[2017-10-02] MEDS: ACCU-CHEK XX (02:33)
[2017-10-02] MEDS: LACTULOSE 30ML CUP PO ×4 (06:00→21:29)
[2017-10-02] MEDS: LEVOFLOXACIN 500 MG TAB PO (06:37)
[2017-10-02] MEDS: PANTOPRAZOLE 40 MG INJ IV (06:37)
[2017-10-02] MEDS: INSULIN ASPART [NOVOLOG] 3 ML PEN SC ×4 (08:35→21:00)
[2017-10-02] MEDS: NYSTATIN 30 GM POWDER BTL TOP ×2 (08:36→21:28)
[2017-10-02 10:17] LABS: ADD MAN DIFF? NO
[2017-10-02 10:19] LABS: WHITE BLOOD COUNT 4.4 10^3/ul (4.8-10.8)
[2017-10-02 10:19] LABS: ABNORMAL IP MESSAGE 1; BASOPHILS % 0.7 % (0.0-2.0); HEMATOCRIT 29.8 % (37.0-47.0); HEMOGLOBIN 9.4 g/dl (12.0-16.0); LYMPHOCYTES # 1.3 10^3/ul (0.8-2.9); LYMPHOCYTES % 30.3 % (15.0-51.0); MEAN CORPUSCULAR HGB CONC 31.5 g/dl (32.0-37.0); MEAN CORPUSCULAR VOLUME 101.4 fl (82.0-101.0); MEAN PLATELET VOLUME 12.1 fl (7.4-10.4); MONOCYTE # 0.6 10^3/ul (0.3-0.9); MONOCYTES % 12.7 % (0.0-11.0); NEUTROPHIL # 2.3 10^3/ul (1.6-7.5); NEUTROPHILS % 51.8 % (39.0-77.0); PLATELET COUNT 48 10^3/UL (140-415); RED BLOOD COUNT 2.94 10^6/ul (4.20-5.40); RED CELL DISTRIBUTION WIDTH 20.3 % (11.5-14.5)
[2017-10-02 10:22] LABS: POSITIVE DIFF @See below
[2017-10-02 10:42] LABS: ANION GAP 7 (8-16); BLOOD UREA NITROGEN 8 mg/dl (7-20); CALCIUM 7.6 mg/dl (8.4-10.2); CARBON DIOXIDE 31 mmol/L (21-31); CHLORIDE 102 mmol/L (97-110); CREATININE 0.45 mg/dl (0.44-1.00); GLUCOSE 170 mg/dl (70-220); POTASSIUM 4.6 mmol/L (3.5-5.1); SODIUM 135 mmol/L (135-144)
[2017-10-02] MEDS: INSULIN GLARGINE [LANTus] (100 UNITS/ML) SYG SC (12:40)
[2017-10-02] MEDS: HYDROCODONE/APAP (5/325) TAB PO (12:53)
[2017-10-02] MEDS: ONDANSETRON 4 MG TAB PO (17:56)
[2017-10-02] MEDS: MICONAZOLE 200 MG VAG SUPP VAG (21:28)
[2017-10-03] MEDS: ACCU-CHEK XX (02:00)
[2017-10-03] MEDS: LACTULOSE 30ML CUP PO ×3 (05:29→21:10)
[2017-10-03] MEDS: PANTOPRAZOLE 40 MG INJ IV (05:29)
[2017-10-03] MEDS: LEVOFLOXACIN 500 MG TAB PO (05:30)
[2017-10-03 06:45] LABS: ADD MAN DIFF? NO
[2017-10-03 06:47] LABS: WHITE BLOOD COUNT 5.4 10^3/ul (4.8-10.8)
[2017-10-03 06:47] LABS: ABNORMAL IP MESSAGE 1; BASOPHILS % 0.7 % (0.0-2.0); HEMATOCRIT 31.1 % (37.0-47.0); HEMOGLOBIN 9.8 g/dl (12.0-16.0); LYMPHOCYTES # 1.3 10^3/ul (0.8-2.9); LYMPHOCYTES % 23.8 % (15.0-51.0); MEAN CORPUSCULAR HGB CONC 31.5 g/dl (32.0-37.0); MEAN CORPUSCULAR VOLUME 101.6 fl (82.0-101.0); MEAN PLATELET VOLUME 10.4 fl (7.4-10.4); MONOCYTE # 0.8 10^3/ul (0.3-0.9); NEUTROPHIL # 3.1 10^3/ul (1.6-7.5); NEUTROPHILS % 57.4 % (39.0-77.0); PLATELET COUNT 65 10^3/UL (140-415); RED BLOOD COUNT 3.06 10^6/ul (4.20-5.40); RED CELL DISTRIBUTION WIDTH 20.3 % (11.5-14.5)
[2017-10-03 06:58] LABS: POSITIVE DIFF @See below
[2017-10-03 07:08] LABS: ANION GAP 5 (8-16); BLOOD UREA NITROGEN 9 mg/dl (7-20); CALCIUM 7.7 mg/dl (8.4-10.2); CARBON DIOXIDE 32 mmol/L (21-31); CHLORIDE 102 mmol/L (97-110); GLUCOSE 157 mg/dl (70-220); POTASSIUM 5.2 mmol/L (3.5-5.1); SODIUM 134 mmol/L (135-144)
[2017-10-03] MEDS: NYSTATIN 30 GM POWDER BTL TOP ×2 (09:00→21:10)
[2017-10-03] MEDS: INSULIN GLARGINE [LANTus] (100 UNITS/ML) SYG SC (09:11)
[2017-10-03] MEDS: INSULIN ASPART [NOVOLOG] 3 ML PEN SC ×4 (09:12→21:18)
[2017-10-03] MEDS: HYDROCODONE/APAP (5/325) TAB PO ×2 (10:48→21:11)
[2017-10-03] MEDS: NA POLYST SULFON 15 GM/60 ML BTL PO (10:48)
[2017-10-04] MEDS: ACCU-CHEK XX (02:00)
[2017-10-04] MEDS: HYDROCODONE/APAP (5/325) TAB PO ×3 (06:21→22:00)
[2017-10-04] MEDS: PANTOPRAZOLE 40 MG INJ IV (06:21)
[2017-10-04] MEDS: LACTULOSE 30ML CUP PO ×3 (06:21→21:05)
[2017-10-04] MEDS: INSULIN ASPART [NOVOLOG] 3 ML PEN SC ×4 (08:00→20:06)
[2017-10-04] MEDS: INSULIN GLARGINE [LANTus] (100 UNITS/ML) SYG SC (08:16)
[2017-10-04] MEDS: NYSTATIN 30 GM POWDER BTL TOP ×2 (08:16→20:01)
[2017-10-05] MEDS: ACCU-CHEK XX (02:24)
[2017-10-05] MEDS: LACTULOSE 30ML CUP PO ×4 (05:18→21:00)
[2017-10-05] MEDS: INSULIN ASPART [NOVOLOG] 3 ML PEN SC ×4 (08:00→20:57)
[2017-10-05] MEDS: INSULIN GLARGINE [LANTus] (100 UNITS/ML) SYG SC (08:26)
[2017-10-05] MEDS: NYSTATIN 30 GM POWDER BTL TOP ×2 (08:33→20:57)
[2017-10-05] MEDS: HYDROCODONE/APAP (5/325) TAB PO (20:57)
[2017-10-06] MEDS: ACCU-CHEK XX (01:21)
[2017-10-06] MEDS: INSULIN ASPART [NOVOLOG] 3 ML PEN SC ×4 (08:43→21:00)
[2017-10-06] MEDS: INSULIN GLARGINE [LANTus] (100 UNITS/ML) SYG SC (08:45)
[2017-10-06] MEDS: NYSTATIN 30 GM POWDER BTL TOP ×2 (08:49→21:12)
[2017-10-06] MEDS: HYDROCODONE/APAP (5/325) TAB PO (12:08)
[2017-10-06] MEDS: LACTULOSE 30ML CUP PO ×2 (14:00→21:12)
[2017-10-06] MEDS: traMADol 50 MG TAB PO (14:00)
[2017-10-07] MEDS: ACCU-CHEK XX (01:00)
[2017-10-07] MEDS: LACTULOSE 30ML CUP PO ×3 (05:42→22:11)
[2017-10-07] MEDS: INSULIN GLARGINE [LANTus] (100 UNITS/ML) SYG SC (07:47)
[2017-10-07] MEDS: NYSTATIN 30 GM POWDER BTL TOP ×2 (07:47→22:11)
[2017-10-07] MEDS: INSULIN ASPART [NOVOLOG] 3 ML PEN SC ×4 (07:47→21:00)
[2017-10-07] MEDS: HYDROCODONE/APAP (5/325) TAB PO (09:43)
[2017-10-07 10:49] LABS: ADD MAN DIFF? NO
[2017-10-07 10:59] LABS: ABNORMAL IP MESSAGE 1; HEMOGLOBIN 10.5 g/dl (12.0-16.0); LYMPHOCYTES # 1.1 10^3/ul (0.8-2.9); MEAN CORPUSCULAR HEMOGLOBIN 32.1 pg (29.0-33.0); MEAN CORPUSCULAR HGB CONC 31.8 g/dl (32.0-37.0); MEAN CORPUSCULAR VOLUME 100.9 fl (82.0-101.0); MEAN PLATELET VOLUME 10.6 fl (7.4-10.4); MONOCYTE # 0.5 10^3/ul (0.3-0.9); MONOCYTES % 11.8 % (0.0-11.0); NEUTROPHIL # 2.5 10^3/ul (1.6-7.5); NEUTROPHILS % 59.3 % (39.0-77.0); PLATELET COUNT 65 10^3/UL (140-415); RED BLOOD COUNT 3.27 10^6/ul (4.20-5.40); RED CELL DISTRIBUTION WIDTH 19.7 % (11.5-14.5)
[2017-10-07 10:59] LABS: WHITE BLOOD COUNT 4.2 10^3/ul (4.8-10.8)
[2017-10-07 11:11] LABS: POSITIVE DIFF @See below
[2017-10-07 11:20] LABS: BLOOD UREA NITROGEN 11 mg/dl (7-20); CALCIUM 7.8 mg/dl (8.4-10.2); CARBON DIOXIDE 28 mmol/L (21-31); CHLORIDE 103 mmol/L (97-110); CREATININE 0.47 mg/dl (0.44-1.00); GLUCOSE 180 mg/dl (70-220); MAGNESIUM 1.4 mg/dl (1.7-2.5); PHOSPHORUS 3.7 mg/dl (2.5-4.9); SODIUM 137 mmol/L (135-144)
[2017-10-07 12:33] LABS: ANION GAP 10 (8-16); POTASSIUM 3.9 mmol/L (3.5-5.1)
[2017-10-07] MEDS: MAGNESIUM OXIDE 400 MG TAB PO (16:05)
[2017-10-08] MEDS: ACCU-CHEK XX (02:00)
[2017-10-08] MEDS: HYDROCODONE/APAP (5/325) TAB PO ×2 (03:06→21:41)
[2017-10-08] MEDS: LACTULOSE 30ML CUP PO ×3 (05:04→21:27)
[2017-10-08] MEDS: INSULIN ASPART [NOVOLOG] 3 ML PEN SC ×4 (08:42→21:32)
[2017-10-08] MEDS: INSULIN GLARGINE [LANTus] (100 UNITS/ML) SYG SC (08:43)
[2017-10-08] MEDS: NYSTATIN 30 GM POWDER BTL TOP ×2 (09:00→22:10)
[2017-10-08] MEDS ORDERED: GLUCAGON 1 MG INJ IM (14:00)
[2017-10-08] MEDS ORDERED: GLUCOSE GEL 15 GRAM TUBE PO ×2 (14:00)
[2017-10-08] MEDS ORDERED: GLUCOSE GEL 15 GRAM TUBE BUCCAL (14:00)
[2017-10-08] MEDS ORDERED: DEXTROSE 50% 50 ML SYRINGE IV ×2 (14:00)
[2017-10-08] MEDS: FUROSEMIDE 40 MG INJ IV (23:58)
[2017-10-09] MEDS: ACCU-CHEK XX (02:00)
[2017-10-09] MEDS: LACTULOSE 30ML CUP PO ×3 (05:26→21:26)
[2017-10-09] MEDS: FUROSEMIDE 40 MG INJ IV ×2 (05:26→18:01)
[2017-10-09 07:31] LABS: ADD MAN DIFF? NO
[2017-10-09 07:34] LABS: ABNORMAL IP MESSAGE 1; BASOPHILS % 0.7 % (0.0-2.0); HEMATOCRIT 31.3 % (37.0-47.0); LYMPHOCYTES # 1.5 10^3/ul (0.8-2.9); LYMPHOCYTES % 27.4 % (15.0-51.0); MEAN CORPUSCULAR HEMOGLOBIN 31.5 pg (29.0-33.0); MEAN CORPUSCULAR HGB CONC 31.9 g/dl (32.0-37.0); MEAN CORPUSCULAR VOLUME 98.7 fl (82.0-101.0); MEAN PLATELET VOLUME 10.7 fl (7.4-10.4); MONOCYTE # 0.7 10^3/ul (0.3-0.9); MONOCYTES % 12.5 % (0.0-11.0); NEUTROPHIL # 3.1 10^3/ul (1.6-7.5); NEUTROPHILS % 57.9 % (39.0-77.0); PLATELET COUNT 55 10^3/UL (140-415); RED BLOOD COUNT 3.17 10^6/ul (4.20-5.40); RED CELL DISTRIBUTION WIDTH 19.3 % (11.5-14.5)
[2017-10-09 07:34] LABS: WHITE BLOOD COUNT 5.4 10^3/ul (4.8-10.8)
[2017-10-09 07:36] LABS: POSITIVE DIFF @See below
[2017-10-09 07:53] LABS: ANION GAP 7 (8-16); BLOOD UREA NITROGEN 10 mg/dl (7-20); CALCIUM 7.5 mg/dl (8.4-10.2); CARBON DIOXIDE 29 mmol/L (21-31); CHLORIDE 102 mmol/L (97-110); CREATININE 0.42 mg/dl (0.44-1.00); GLUCOSE 181 mg/dl (70-220); POTASSIUM 3.4 mmol/L (3.5-5.1); SODIUM 135 mmol/L (135-144)
[2017-10-09 07:54] LABS: MAGNESIUM 1.5 mg/dl (1.7-2.5)
[2017-10-09] MEDS: INSULIN ASPART [NOVOLOG] 3 ML PEN SC ×4 (08:17→20:18)
[2017-10-09] MEDS: INSULIN GLARGINE [LANTus] (100 UNITS/ML) SYG SC (08:18)
[2017-10-09] MEDS: NYSTATIN 30 GM POWDER BTL TOP ×2 (08:27→21:25)
[2017-10-09] MEDS: HYDROCODONE/APAP (5/325) TAB PO ×2 (12:56→20:19)
[2017-10-09] MEDS: CALCIUM CARBONATE 500 MG CHEW TAB PO (13:43)
[2017-10-09] MEDS: MAGNESIUM OXIDE 400 MG TAB PO (14:52)
[2017-10-09] MEDS: POTASSIUM CHLORIDE (SR) 20 MEQ TAB PO ×2 (14:55→18:00)
[2017-10-09] MEDS ORDERED: BISMUTH SUBSALICYLATE 120 ML BTL PO (17:00)
[2017-10-09] MEDS: BISMUTH SUBSALICYLATE 240 ML BTL PO ×2 (18:01→21:25)
[2017-10-10] MEDS: BISMUTH SUBSALICYLATE 240 ML BTL PO ×2 (01:57→06:18)
[2017-10-10] MEDS: ACCU-CHEK XX (02:00)
[2017-10-10] MEDS: LACTULOSE 30ML CUP PO ×3 (06:10→22:00)
[2017-10-10] MEDS: FUROSEMIDE 40 MG INJ IV ×2 (06:11→18:00)
[2017-10-10 06:19] LABS: ANION GAP 7 (8-16); BLOOD UREA NITROGEN 13 mg/dl (7-20); CALCIUM 7.5 mg/dl (8.4-10.2); CARBON DIOXIDE 33 mmol/L (21-31); CHLORIDE 99 mmol/L (97-110); CREATININE 0.46 mg/dl (0.44-1.00); GLUCOSE 184 mg/dl (70-220); MAGNESIUM 1.5 mg/dl (1.7-2.5); PHOSPHORUS 3.1 mg/dl (2.5-4.9); POTASSIUM 3.6 mmol/L (3.5-5.1); SODIUM 135 mmol/L (135-144)
[2017-10-10] MEDS: CALCIUM CARBONATE 500 MG CHEW TAB PO ×2 (06:55→08:41)
[2017-10-10] MEDS: HYDROCODONE/APAP (5/325) TAB PO ×2 (06:56→18:35)
[2017-10-10] MEDS: INSULIN ASPART [NOVOLOG] 3 ML PEN SC ×4 (08:42→20:43)
[2017-10-10] MEDS: INSULIN GLARGINE [LANTus] (100 UNITS/ML) SYG SC (08:43)
[2017-10-10] MEDS: NYSTATIN 30 GM POWDER BTL TOP ×2 (08:48→20:42)
[2017-10-10] MEDS: MAGNESIUM OXIDE 400 MG TAB PO (12:35)
[2017-10-11] MEDS: HYDROCODONE/APAP (5/325) TAB PO ×3 (00:47→20:09)
[2017-10-11] MEDS: ACCU-CHEK XX (02:35)
[2017-10-11] MEDS: LACTULOSE 30ML CUP PO ×2 (06:00→13:32)
[2017-10-11] MEDS: FUROSEMIDE 40 MG INJ IV ×2 (06:11→17:00)
[2017-10-11 08:26] LABS: ADD MAN DIFF? NO
[2017-10-11 08:32] LABS: WHITE BLOOD COUNT 7.4 10^3/ul (4.8-10.8)
[2017-10-11 08:32] LABS: ABNORMAL IP MESSAGE 1; BASOPHIL # 0.1 10^3/ul (0.0-0.1); BASOPHILS % 0.8 % (0.0-2.0); HEMATOCRIT 31.6 % (37.0-47.0); HEMOGLOBIN 10.1 g/dl (12.0-16.0); LYMPHOCYTES # 1.4 10^3/ul (0.8-2.9); LYMPHOCYTES % 19.3 % (15.0-51.0); MEAN CORPUSCULAR HEMOGLOBIN 31.6 pg (29.0-33.0); MEAN CORPUSCULAR VOLUME 98.8 fl (82.0-101.0); MEAN PLATELET VOLUME 10.8 fl (7.4-10.4); MONOCYTE # 0.8 10^3/ul (0.3-0.9); MONOCYTES % 10.3 % (0.0-11.0); NEUTROPHILS % 67.6 % (39.0-77.0); RED CELL DISTRIBUTION WIDTH 18.6 % (11.5-14.5)
[2017-10-11] MEDS: INSULIN GLARGINE [LANTus] (100 UNITS/ML) SYG SC (08:35)
[2017-10-11] MEDS: INSULIN ASPART [NOVOLOG] 3 ML PEN SC ×4 (08:36→21:15)
[2017-10-11 08:41] LABS: PLATELET COUNT 62 10^3/UL (140-415); POSITIVE DIFF @See below
[2017-10-11] MEDS: NYSTATIN 30 GM POWDER BTL TOP ×2 (08:42→21:14)
[2017-10-11 08:54] LABS: ANION GAP 7 (8-16); BLOOD UREA NITROGEN 15 mg/dl (7-20); CALCIUM 7.4 mg/dl (8.4-10.2); CARBON DIOXIDE 30 mmol/L (21-31); CHLORIDE 98 mmol/L (97-110); CREATININE 0.43 mg/dl (0.44-1.00); GLUCOSE 238 mg/dl (70-220); MAGNESIUM 1.6 mg/dl (1.7-2.5); POTASSIUM 3.4 mmol/L (3.5-5.1); SODIUM 132 mmol/L (135-144)
[2017-10-11] MEDS: MAGNESIUM SULFATE 2 GM/50 ML 50 ML IVPB (15:29)
[2017-10-11] MEDS: CALCIUM CARBONATE 500 MG CHEW TAB PO (15:30)
[2017-10-11] MEDS: POTASSIUM CHLORIDE 100 ML IVPB ×3 (16:58→21:42)
[2017-10-11] MEDS: POTASSIUM CHLORIDE (SR) 20 MEQ TAB PO (21:13)
[2017-10-12] MEDS: ACCU-CHEK XX (01:48)
[2017-10-12] MEDS: FUROSEMIDE 40 MG INJ IV ×2 (05:15→17:23)
[2017-10-12] MEDS: NYSTATIN 30 GM POWDER BTL TOP ×2 (08:11→21:53)
[2017-10-12] MEDS: INSULIN GLARGINE [LANTus] (100 UNITS/ML) SYG SC (08:12)
[2017-10-12] MEDS: INSULIN ASPART [NOVOLOG] 3 ML PEN SC ×6 (08:13→22:00)
[2017-10-12 11:24] LABS: ADD MAN DIFF? NO
[2017-10-12 11:25] LABS: WHITE BLOOD COUNT 6.4 10^3/ul (4.8-10.8)
[2017-10-12 11:25] LABS: ABNORMAL IP MESSAGE 1; BASOPHIL # 0.1 10^3/ul (0.0-0.1); BASOPHILS % 0.9 % (0.0-2.0); HEMOGLOBIN 10.3 g/dl (12.0-16.0); LYMPHOCYTES # 1.2 10^3/ul (0.8-2.9); LYMPHOCYTES % 19.2 % (15.0-51.0); MEAN CORPUSCULAR HEMOGLOBIN 32.2 pg (29.0-33.0); MEAN CORPUSCULAR HGB CONC 32.2 g/dl (32.0-37.0); MEAN PLATELET VOLUME 10.5 fl (7.4-10.4); MONOCYTE # 0.7 10^3/ul (0.3-0.9); MONOCYTES % 11.5 % (0.0-11.0); NEUTROPHIL # 4.3 10^3/ul (1.6-7.5); NEUTROPHILS % 66.8 % (39.0-77.0); NUCLEATED RED BLOOD CELLS% 0.3 /100WBC (0.0-0.0); PLATELET COUNT 65 10^3/UL (140-415); RED CELL DISTRIBUTION WIDTH 18.5 % (11.5-14.5)
[2017-10-12 11:32] LABS: POSITIVE DIFF @See below
[2017-10-12 11:54] LABS: AMMONIA 46 umol/l (9-30)
[2017-10-12 11:55] LABS: ANION GAP 9 (8-16); BLOOD UREA NITROGEN 16 mg/dl (7-20); CALCIUM 7.5 mg/dl (8.4-10.2); CARBON DIOXIDE 35 mmol/L (21-31); CHLORIDE 94 mmol/L (97-110); CREATININE 0.47 mg/dl (0.44-1.00); GLUCOSE 206 mg/dl (70-220); POTASSIUM 3.7 mmol/L (3.5-5.1); SODIUM 134 mmol/L (135-144)
[2017-10-12 11:56] LABS: MAGNESIUM 1.7 mg/dl (1.7-2.5)
[2017-10-12] MEDS: LACTULOSE 30ML CUP PO ×3 (12:25→21:54)
[2017-10-12] MEDS: HYDROCODONE/APAP (5/325) TAB PO (22:02)
[2017-10-13] MEDS: ACCU-CHEK XX (01:39)
[2017-10-13] MEDS: LEVALBUTEROL (NEB) 0.63 MG/3 ML AMP HHN (01:55)
[2017-10-13] MEDS: NITROGLYCERIN (SL) 0.4 MG TAB SL ×2 (02:46→02:52)
[2017-10-13] MEDS: morphine 2 MG INJ IV (03:16)
[2017-10-13 04:18] LABS: D-DIMER 2283.36 ng/ml (<460)
[2017-10-13 04:30] LABS: TROPONIN-I < 0.012 ng/ml (0.000-0.120)
[2017-10-13] MEDS: FUROSEMIDE 40 MG INJ IV ×2 (05:46→17:36)
[2017-10-13] MEDS: BISMUTH SUBSALICYLATE 240 ML BTL PO (06:54)
[2017-10-13] MEDS: HYDROCODONE/APAP (5/325) TAB PO ×2 (08:27→23:19)
[2017-10-13] MEDS: LACTULOSE 30ML CUP PO ×2 (08:29→21:00)
[2017-10-13] MEDS: HEPARIN 5,000 UNIT/0.5 ML VIAL SC ×2 (08:32→21:21)
[2017-10-13] MEDS: INSULIN GLARGINE [LANTus] (100 UNITS/ML) SYG SC (08:34)
[2017-10-13] MEDS: NYSTATIN 30 GM POWDER BTL TOP ×2 (08:39→21:26)
[2017-10-13] MEDS: INSULIN ASPART [NOVOLOG] 3 ML PEN SC ×7 (09:30→21:20)
[2017-10-14] MEDS: ACCU-CHEK XX (02:00)
[2017-10-14] MEDS: FUROSEMIDE 40 MG INJ IV ×2 (06:45→18:47)
[2017-10-14] MEDS: INSULIN ASPART [NOVOLOG] 3 ML PEN SC ×7 (08:00→22:00)
[2017-10-14] MEDS: INSULIN GLARGINE [LANTus] (100 UNITS/ML) SYG SC (08:47)
[2017-10-14] MEDS: HEPARIN 5,000 UNIT/0.5 ML VIAL SC ×2 (08:49→22:03)
[2017-10-14] MEDS: NYSTATIN 30 GM POWDER BTL TOP ×2 (08:52→22:02)
[2017-10-14] MEDS: LACTULOSE 30ML CUP PO ×3 (08:52→23:04)
[2017-10-14] MEDS: HYDROCODONE/APAP (5/325) TAB PO (17:31)
[2017-10-15] MEDS: ACCU-CHEK XX (01:51)
[2017-10-15] MEDS: FUROSEMIDE 40 MG INJ IV ×2 (06:04→17:10)
[2017-10-15] MEDS: LACTULOSE 30ML CUP PO ×2 (08:05→20:28)
[2017-10-15] MEDS: HEPARIN 5,000 UNIT/0.5 ML VIAL SC ×2 (08:06→20:32)
[2017-10-15] MEDS: INSULIN GLARGINE [LANTus] (100 UNITS/ML) SYG SC (08:07)
[2017-10-15] MEDS: INSULIN ASPART [NOVOLOG] 3 ML PEN SC ×7 (08:20→20:33)
[2017-10-15] MEDS: NYSTATIN 30 GM POWDER BTL TOP ×2 (08:22→20:33)
[2017-10-15] MEDS: HYDROCODONE/APAP (5/325) TAB PO ×2 (10:48→16:19)
[2017-10-15] MEDS: LEVALBUTEROL (NEB) 0.63 MG/3 ML AMP HHN (16:40)
[2017-10-16] MEDS: ACCU-CHEK XX (02:00)
[2017-10-16] MEDS: FUROSEMIDE 40 MG INJ IV ×2 (06:00→17:16)
[2017-10-16] MEDS: LACTULOSE 30ML CUP PO ×2 (08:15→20:50)
[2017-10-16] MEDS: INSULIN ASPART [NOVOLOG] 3 ML PEN SC ×7 (08:17→20:53)
[2017-10-16] MEDS: INSULIN GLARGINE [LANTus] (100 UNITS/ML) SYG SC (08:18)
[2017-10-16] MEDS: NYSTATIN 30 GM POWDER BTL TOP ×2 (08:19→21:00)
[2017-10-16] MEDS: HEPARIN 5,000 UNIT/0.5 ML VIAL SC ×2 (08:19→20:50)
[2017-10-16] MEDS: HYDROCODONE/APAP (5/325) TAB PO (23:31)
[2017-10-17] MEDS: LEVALBUTEROL (NEB) 0.63 MG/3 ML AMP HHN (01:53)
[2017-10-17] MEDS: ACCU-CHEK XX (02:00)
[2017-10-17] MEDS: FUROSEMIDE 40 MG INJ IV ×2 (06:56→17:38)
[2017-10-17] MEDS: LACTULOSE 30ML CUP PO ×2 (08:22→20:23)
[2017-10-17] MEDS: INSULIN GLARGINE [LANTus] (100 UNITS/ML) SYG SC (08:29)
[2017-10-17] MEDS: INSULIN ASPART [NOVOLOG] 3 ML PEN SC ×7 (08:29→20:23)
[2017-10-17] MEDS: HEPARIN 5,000 UNIT/0.5 ML VIAL SC ×2 (08:29→20:23)
[2017-10-17] MEDS: HYDROCODONE/APAP (5/325) TAB PO ×2 (08:30→18:45)
[2017-10-17] MEDS: NYSTATIN 30 GM POWDER BTL TOP ×2 (13:12→20:21)
[2017-10-18] MEDS: ACCU-CHEK XX (02:00)
[2017-10-18] MEDS: HYDROCODONE/APAP (5/325) TAB PO ×3 (02:06→20:34)
[2017-10-18] MEDS: FUROSEMIDE 40 MG INJ IV (05:30)
[2017-10-18 06:34] LABS: ADD MAN DIFF? NO
[2017-10-18 06:44] LABS: RED BLOOD COUNT 3.29 10^6/ul (4.20-5.40)
[2017-10-18 06:44] LABS: WHITE BLOOD COUNT 4.9 10^3/ul (4.8-10.8)
[2017-10-18 06:45] LABS: ABNORMAL IP MESSAGE 1; BASOPHIL # 0.1 10^3/ul (0.0-0.1); BASOPHILS % 1.8 % (0.0-2.0); HEMATOCRIT 32.9 % (37.0-47.0); HEMOGLOBIN 10.3 g/dl (12.0-16.0); LYMPHOCYTES # 1.2 10^3/ul (0.8-2.9); LYMPHOCYTES % 23.8 % (15.0-51.0); MEAN CORPUSCULAR HEMOGLOBIN 31.3 pg (29.0-33.0); MEAN CORPUSCULAR HGB CONC 31.3 g/dl (32.0-37.0); MEAN PLATELET VOLUME 10.1 fl (7.4-10.4); MONOCYTE # 0.7 10^3/ul (0.3-0.9); MONOCYTES % 13.4 % (0.0-11.0); NEUTROPHIL # 2.9 10^3/ul (1.6-7.5); NEUTROPHILS % 59.8 % (39.0-77.0); PLATELET COUNT 73 10^3/UL (140-415)
[2017-10-18 06:56] LABS: POSITIVE DIFF @See below
[2017-10-18] MEDS: LACTULOSE 30ML CUP PO ×2 (08:18→20:23)
[2017-10-18] MEDS: NYSTATIN 30 GM POWDER BTL TOP ×2 (08:19→20:31)
[2017-10-18] MEDS: HEPARIN 5,000 UNIT/0.5 ML VIAL SC ×2 (08:25→20:23)
[2017-10-18] MEDS: INSULIN ASPART [NOVOLOG] 3 ML PEN SC ×7 (08:25→20:22)
[2017-10-18] MEDS: INSULIN GLARGINE [LANTus] (100 UNITS/ML) SYG SC (08:25)
[2017-10-18 10:30] LABS: ADD MAN DIFF? NO
[2017-10-18 10:32] LABS: ABNORMAL IP MESSAGE 1; BASOPHIL # 0.1 10^3/ul (0.0-0.1); BASOPHILS % 1.4 % (0.0-2.0); HEMATOCRIT 29.7 % (37.0-47.0); HEMOGLOBIN 9.3 g/dl (12.0-16.0); LYMPHOCYTES % 23.7 % (15.0-51.0); MEAN CORPUSCULAR HEMOGLOBIN 31.5 pg (29.0-33.0); MEAN CORPUSCULAR HGB CONC 31.3 g/dl (32.0-37.0); MEAN CORPUSCULAR VOLUME 100.7 fl (82.0-101.0); MONOCYTE # 0.6 10^3/ul (0.3-0.9); MONOCYTES % 13.6 % (0.0-11.0); NEUTROPHIL # 2.6 10^3/ul (1.6-7.5); NEUTROPHILS % 59.9 % (39.0-77.0); PLATELET COUNT 67 10^3/UL (140-415); RED BLOOD COUNT 2.95 10^6/ul (4.20-5.40)
[2017-10-18 10:32] LABS: WHITE BLOOD COUNT 4.3 10^3/ul (4.8-10.8)
[2017-10-18 10:33] LABS: POSITIVE DIFF @See below
[2017-10-18 10:54] LABS: ALANINE AMINOTRANSFERASE 35 IU/L (13-69); ALBUMIN 1.7 g/dl (3.3-4.9); ALBUMIN/GLOBULIN RATIO 0.39; ALKALINE PHOSPHATASE 126 IU/L (42-121); ANION GAP 5 (8-16); ASPARTATE AMINO TRANSFERASE 70 IU/L (15-46); BILIRUBIN,INDIRECT 0.8 mg/dl (0-1.1); BILIRUBIN,TOTAL 0.8 mg/dl (0.2-1.3); BLOOD UREA NITROGEN 15 mg/dl (7-20); CALCIUM 7.5 mg/dl (8.4-10.2); CARBON DIOXIDE 39 mmol/L (21-31); CHLORIDE 97 mmol/L (97-110); CREATININE 0.43 mg/dl (0.44-1.00); GLUCOSE 220 mg/dl (70-220); POTASSIUM 3.3 mmol/L (3.5-5.1); SODIUM 138 mmol/L (135-144)
[2017-10-18] MEDS: POTASSIUM CHLORIDE (SR) 20 MEQ TAB PO (12:54)
[2017-10-18 15:26] LABS: BLOOD UREA NITROGEN 15 mg/dl (7-20); CALCIUM 7.6 mg/dl (8.4-10.2); CHLORIDE 97 mmol/L (97-110); CREATININE 0.44 mg/dl (0.44-1.00); GLUCOSE 214 mg/dl (70-220); POTASSIUM 3.7 mmol/L (3.5-5.1); SODIUM 138 mmol/L (135-144)
[2017-10-18] MEDS: SPIRONOLACTONE 50 MG TAB PO (15:31)
[2017-10-18 15:42] LABS: ANION GAP 3 (8-16)
[2017-10-18 15:45] LABS: CARBON DIOXIDE 42 mmol/L (21-31)
[2017-10-18 16:40] LABS: AADO2 Arterial 69.2 mmHg (7.0-24.0); Allen Test ACCEPTAB; Arterial Base Excess 13.3 mmol/L (-3.0-3); Arterial Blood Gas Oxygen Sat 93.5 mmHG (95.0-98.0); Arterial COHb 0.5 % (0.0-3.0); Arterial Fraction of Oxyhgb 92.8 % (93.0-99.0); Arterial MetHb 0.3 % (0.0-1.5); Arterial pCO2 62.7 mmhg (35-45); MODE NASAL CANNULA; Site Right Radial
[2017-10-18] MEDS: FUROSEMIDE 40 MG TAB PO (17:07)
[2017-10-18] MEDS ORDERED: MAGNESIUM HYDROXIDE 30ML CUP PO (18:00)
[2017-10-19] MEDS: FUROSEMIDE 40 MG TAB PO ×2 (05:31→17:19)
[2017-10-19] MEDS: SPIRONOLACTONE 50 MG TAB PO (08:16)
[2017-10-19] MEDS: INSULIN GLARGINE [LANTus] (100 UNITS/ML) SYG SC (08:26)
[2017-10-19] MEDS: HEPARIN 5,000 UNIT/0.5 ML VIAL SC ×2 (08:26→20:54)
[2017-10-19] MEDS: INSULIN ASPART [NOVOLOG] 3 ML PEN SC ×7 (08:27→20:54)
[2017-10-19] MEDS: LACTULOSE 30ML CUP PO ×3 (08:39→21:45)
[2017-10-19] MEDS: NYSTATIN 30 GM POWDER BTL TOP ×2 (08:40→21:03)
[2017-10-19 12:42] LABS: MAGNESIUM 1.5 mg/dl (1.7-2.5)
[2017-10-19 14:38] LABS: ANION GAP 4 (8-16); BLOOD UREA NITROGEN 14 mg/dl (7-20); CALCIUM 7.8 mg/dl (8.4-10.2); CARBON DIOXIDE 39 mmol/L (21-31); CHLORIDE 98 mmol/L (97-110); CREATININE 0.38 mg/dl (0.44-1.00); GLUCOSE 180 mg/dl (70-220); SODIUM 137 mmol/L (135-144)
[2017-10-19] MEDS: ACETAMINOPHEN 325 MG TAB PO (21:05)
[2017-10-19] MEDS: LEVALBUTEROL (NEB) 0.63 MG/3 ML AMP HHN (21:20)
[2017-10-20] MEDS: HYDROCODONE/APAP (5/325) TAB PO ×2 (01:18→06:08)
[2017-10-20] MEDS: FUROSEMIDE 40 MG TAB PO ×2 (06:11→18:50)
[2017-10-20] MEDS: LACTULOSE 30ML CUP PO ×2 (08:26→21:26)
[2017-10-20] MEDS: NYSTATIN 30 GM POWDER BTL TOP ×2 (08:28→21:41)
[2017-10-20] MEDS: INSULIN GLARGINE [LANTus] (100 UNITS/ML) SYG SC (08:30)
[2017-10-20] MEDS: INSULIN ASPART [NOVOLOG] 3 ML PEN SC ×7 (08:31→21:28)
[2017-10-20] MEDS: HEPARIN 5,000 UNIT/0.5 ML VIAL SC ×2 (08:33→21:28)
[2017-10-20 10:27] LABS: ADD MAN DIFF? NO
[2017-10-20 10:29] LABS: ABNORMAL IP MESSAGE 1; BASOPHIL # 0.1 10^3/ul (0.0-0.1); BASOPHILS % 1.6 % (0.0-2.0); HEMATOCRIT 31.4 % (37.0-47.0); HEMOGLOBIN 9.8 g/dl (12.0-16.0); LYMPHOCYTES # 1.3 10^3/ul (0.8-2.9); LYMPHOCYTES % 28.3 % (15.0-51.0); MEAN CORPUSCULAR HEMOGLOBIN 31.3 pg (29.0-33.0); MEAN CORPUSCULAR HGB CONC 31.2 g/dl (32.0-37.0); MEAN CORPUSCULAR VOLUME 100.3 fl (82.0-101.0); MEAN PLATELET VOLUME 10.4 fl (7.4-10.4); MONOCYTE # 0.5 10^3/ul (0.3-0.9); MONOCYTES % 10.8 % (0.0-11.0); NEUTROPHIL # 2.6 10^3/ul (1.6-7.5); PLATELET COUNT 68 10^3/UL (140-415); RED BLOOD COUNT 3.13 10^6/ul (4.20-5.40); RED CELL DISTRIBUTION WIDTH 17.9 % (11.5-14.5)
[2017-10-20 10:29] LABS: WHITE BLOOD COUNT 4.5 10^3/ul (4.8-10.8)
[2017-10-20 10:33] LABS: POSITIVE DIFF @See below
[2017-10-20 10:53] LABS: ALANINE AMINOTRANSFERASE 36 IU/L (13-69); ALBUMIN 1.8 g/dl (3.3-4.9); ALKALINE PHOSPHATASE 137 IU/L (42-121); ANION GAP 4 (8-16); ASPARTATE AMINO TRANSFERASE 88 IU/L (15-46); BILIRUBIN,INDIRECT 0.8 mg/dl (0-1.1); BILIRUBIN,TOTAL 0.8 mg/dl (0.2-1.3); BLOOD UREA NITROGEN 15 mg/dl (7-20); CALCIUM 7.7 mg/dl (8.4-10.2); CARBON DIOXIDE 38 mmol/L (21-31); CHLORIDE 98 mmol/L (97-110); CREATININE 0.46 mg/dl (0.44-1.00); GLUCOSE 233 mg/dl (70-220); POTASSIUM 3.9 mmol/L (3.5-5.1); SODIUM 136 mmol/L (135-144); TOTAL PROTEIN 6.3 g/dl (6.1-8.1)
[2017-10-20] MEDS: SPIRONOLACTONE 50 MG TAB PO (12:36)
[2017-10-20] MEDS: ACETAMINOPHEN 325 MG TAB PO ×2 (16:13→23:23)
[2017-10-20] MEDS: LIDOCAINE 1% (MPF) 5 ML VIAL (16:57)
[2017-10-20 21:42] LABS: FLD PMN% 23.2 %; FLD RBC 0 /uL; FLD WBC 86 /cmm
[2017-10-20 22:12] LABS: FLD TYPE ASCITES
[2017-10-20 22:12] LABS: FLD CLARITY CLEAR; FLD COLOR YELLOW
[2017-10-20 22:13] LABS: FLD MN% 76.8 %
[2017-10-21] MEDS: CALCIUM CARBONATE 500 MG CHEW TAB PO ×3 (01:41→23:43)
[2017-10-21] MEDS: FUROSEMIDE 40 MG TAB PO ×2 (05:55→17:25)
[2017-10-21 06:48] LABS: ADD MAN DIFF? NO
[2017-10-21 07:05] LABS: WHITE BLOOD COUNT 4.2 10^3/ul (4.8-10.8)
[2017-10-21 07:05] LABS: ABNORMAL IP MESSAGE 1; BASOPHIL # 0.1 10^3/ul (0.0-0.1); BASOPHILS % 1.4 % (0.0-2.0); HEMATOCRIT 30.8 % (37.0-47.0); HEMOGLOBIN 9.6 g/dl (12.0-16.0); LYMPHOCYTES # 1.2 10^3/ul (0.8-2.9); LYMPHOCYTES % 27.8 % (15.0-51.0); MEAN CORPUSCULAR HEMOGLOBIN 31.2 pg (29.0-33.0); MEAN CORPUSCULAR HGB CONC 31.2 g/dl (32.0-37.0); MEAN PLATELET VOLUME 10.3 fl (7.4-10.4); MONOCYTE # 0.5 10^3/ul (0.3-0.9); MONOCYTES % 10.9 % (0.0-11.0); NEUTROPHIL # 2.5 10^3/ul (1.6-7.5); NEUTROPHILS % 58.7 % (39.0-77.0); PLATELET COUNT 68 10^3/UL (140-415); RED BLOOD COUNT 3.08 10^6/ul (4.20-5.40); RED CELL DISTRIBUTION WIDTH 17.9 % (11.5-14.5)
[2017-10-21 07:29] LABS: ALANINE AMINOTRANSFERASE 42 IU/L (13-69); ALBUMIN 1.8 g/dl (3.3-4.9); ALBUMIN/GLOBULIN RATIO 0.41; ALKALINE PHOSPHATASE 127 IU/L (42-121); ASPARTATE AMINO TRANSFERASE 81 IU/L (15-46); BILIRUBIN,INDIRECT 0.8 mg/dl (0-1.1); BILIRUBIN,TOTAL 0.8 mg/dl (0.2-1.3); BLOOD UREA NITROGEN 15 mg/dl (7-20); CALCIUM 7.6 mg/dl (8.4-10.2); CHLORIDE 97 mmol/L (97-110); CREATININE 0.43 mg/dl (0.44-1.00); GLUCOSE 176 mg/dl (70-220); POTASSIUM 3.8 mmol/L (3.5-5.1); SODIUM 137 mmol/L (135-144); TOTAL PROTEIN 6.1 g/dl (6.1-8.1)
[2017-10-21 07:35] LABS: POSITIVE DIFF @See below
[2017-10-21 07:36] LABS: ANION GAP 6 (8-16)
[2017-10-21 07:37] LABS: CARBON DIOXIDE 38 mmol/L (21-31)
[2017-10-21] MEDS: LACTULOSE 30ML CUP PO ×2 (08:22→20:42)
[2017-10-21] MEDS: SPIRONOLACTONE 50 MG TAB PO (08:22)
[2017-10-21] MEDS: INSULIN ASPART [NOVOLOG] 3 ML PEN SC ×7 (08:25→20:45)
[2017-10-21] MEDS: HEPARIN 5,000 UNIT/0.5 ML VIAL SC ×2 (08:25→20:47)
[2017-10-21] MEDS: INSULIN GLARGINE [LANTus] (100 UNITS/ML) SYG SC (08:44)
[2017-10-21] MEDS: NYSTATIN 30 GM POWDER BTL TOP ×2 (08:46→20:48)
[2017-10-21] MEDS: ACETAMINOPHEN 325 MG TAB PO (14:53)
[2017-10-21] MEDS: HYDROCODONE/APAP (5/325) TAB PO ×2 (16:39→23:19)
[2017-10-21] MEDS: BISMUTH SUBSALICYLATE 240 ML BTL PO (23:56)
[2017-10-22] MEDS: HYDROCODONE/APAP (5/325) TAB PO ×2 (04:43→22:49)
[2017-10-22] MEDS: FUROSEMIDE 40 MG TAB PO ×2 (05:54→17:20)
[2017-10-22] MEDS: SPIRONOLACTONE 50 MG TAB PO (08:04)
[2017-10-22] MEDS: LACTULOSE 30ML CUP PO ×2 (08:04→21:37)
[2017-10-22] MEDS: INSULIN GLARGINE [LANTus] (100 UNITS/ML) SYG SC (08:10)
[2017-10-22] MEDS: INSULIN ASPART [NOVOLOG] 3 ML PEN SC ×7 (08:10→21:00)
[2017-10-22] MEDS: HEPARIN 5,000 UNIT/0.5 ML VIAL SC ×2 (08:10→21:00)
[2017-10-22] MEDS: NYSTATIN 30 GM POWDER BTL TOP ×2 (08:11→21:38)
[2017-10-22] MEDS: METOLAZONE 5 MG TAB PO (12:17)
[2017-10-22 12:46] LABS: ADD MAN DIFF? NO
[2017-10-22 12:48] LABS: WHITE BLOOD COUNT 4.9 10^3/ul (4.8-10.8)
[2017-10-22 12:48] LABS: ABNORMAL IP MESSAGE 1; BASOPHIL # 0.1 10^3/ul (0.0-0.1); BASOPHILS % 1.2 % (0.0-2.0); HEMATOCRIT 31.6 % (37.0-47.0); HEMOGLOBIN 9.9 g/dl (12.0-16.0); LYMPHOCYTES # 1.2 10^3/ul (0.8-2.9); LYMPHOCYTES % 23.9 % (15.0-51.0); MEAN CORPUSCULAR HEMOGLOBIN 31.6 pg (29.0-33.0); MEAN CORPUSCULAR HGB CONC 31.3 g/dl (32.0-37.0); MEAN PLATELET VOLUME 10.1 fl (7.4-10.4); MONOCYTE # 0.5 10^3/ul (0.3-0.9); MONOCYTES % 10.8 % (0.0-11.0); NEUTROPHIL # 3.1 10^3/ul (1.6-7.5); NEUTROPHILS % 63.1 % (39.0-77.0); PLATELET COUNT 78 10^3/UL (140-415); RED BLOOD COUNT 3.13 10^6/ul (4.20-5.40); RED CELL DISTRIBUTION WIDTH 17.9 % (11.5-14.5)
[2017-10-22 13:02] LABS: POSITIVE DIFF @See below
[2017-10-22 13:04] LABS: ANION GAP 7 (8-16); BLOOD UREA NITROGEN 16 mg/dl (7-20); CALCIUM 7.9 mg/dl (8.4-10.2); CARBON DIOXIDE 38 mmol/L (21-31); CHLORIDE 94 mmol/L (97-110); GLUCOSE 227 mg/dl (70-220); SODIUM 135 mmol/L (135-144)
[2017-10-22] MEDS: ACETAMINOPHEN 325 MG TAB PO (21:37)
[2017-10-23] MEDS: BISMUTH SUBSALICYLATE 240 ML BTL PO (05:34)
[2017-10-23] MEDS: FUROSEMIDE 40 MG TAB PO ×2 (05:35→17:16)
[2017-10-23] MEDS: METOLAZONE 5 MG TAB PO (05:35)
[2017-10-23] MEDS: HYDROCODONE/APAP (5/325) TAB PO ×2 (07:20→23:01)
[2017-10-23] MEDS: SPIRONOLACTONE 50 MG TAB PO (08:00)
[2017-10-23] MEDS: LACTULOSE 30ML CUP PO ×2 (08:00→20:44)
[2017-10-23] MEDS: NYSTATIN 30 GM POWDER BTL TOP ×2 (08:00→20:47)
[2017-10-23] MEDS: HEPARIN 5,000 UNIT/0.5 ML VIAL SC ×2 (08:05→20:46)
[2017-10-23] MEDS: INSULIN ASPART [NOVOLOG] 3 ML PEN SC ×7 (08:06→20:47)
[2017-10-23] MEDS: INSULIN GLARGINE [LANTus] (100 UNITS/ML) SYG SC (08:06)
[2017-10-23 08:25] LABS: BLOOD UREA NITROGEN 17 mg/dl (7-20); CHLORIDE 93 mmol/L (97-110); CREATININE 0.56 mg/dl (0.44-1.00); GLUCOSE 217 mg/dl (70-220); MAGNESIUM 1.5 mg/dl (1.7-2.5); POTASSIUM 3.7 mmol/L (3.5-5.1); SODIUM 135 mmol/L (135-144)
[2017-10-23 08:32] LABS: ANION GAP 6 (8-16)
[2017-10-23 08:33] LABS: CARBON DIOXIDE 40 mmol/L (21-31)
[2017-10-24] MEDS: FUROSEMIDE 40 MG TAB PO ×2 (05:46→17:22)
[2017-10-24] MEDS: METOLAZONE 5 MG TAB PO (05:46)
[2017-10-24] MEDS: SPIRONOLACTONE 50 MG TAB PO (08:18)
[2017-10-24] MEDS: INSULIN ASPART [NOVOLOG] 3 ML PEN SC ×7 (08:21→20:38)
[2017-10-24] MEDS: INSULIN GLARGINE [LANTus] (100 UNITS/ML) SYG SC (08:22)
[2017-10-24] MEDS: HEPARIN 5,000 UNIT/0.5 ML VIAL SC ×2 (08:22→20:37)
[2017-10-24] MEDS: LACTULOSE 30ML CUP PO ×2 (09:00→20:37)
[2017-10-24 11:42] LABS: BLOOD UREA NITROGEN 20 mg/dl (7-20); CALCIUM 8.4 mg/dl (8.4-10.2); CHLORIDE 90 mmol/L (97-110); CREATININE 0.65 mg/dl (0.44-1.00); GLUCOSE 210 mg/dl (70-220); POTASSIUM 3.8 mmol/L (3.5-5.1); SODIUM 133 mmol/L (135-144)
[2017-10-24 12:01] LABS: ANION GAP 6 (8-16)
[2017-10-24 12:03] LABS: CARBON DIOXIDE 41 mmol/L (21-31)
[2017-10-24] MEDS: NYSTATIN 30 GM POWDER BTL TOP ×2 (12:40→20:39)
[2017-10-24] MEDS: HYDROCODONE/APAP (5/325) TAB PO ×2 (12:43→20:50)
[2017-10-24] MEDS: POTASSIUM CHLORIDE (SR) 20 MEQ TAB PO (14:13)
[2017-10-25] MEDS: HYDROCODONE/APAP (5/325) TAB PO ×2 (03:15→20:13)
[2017-10-25] MEDS: FUROSEMIDE 40 MG TAB PO ×2 (06:34→18:47)
[2017-10-25] MEDS: METOLAZONE 5 MG TAB PO (06:35)
[2017-10-25 07:44] LABS: BLOOD UREA NITROGEN 21 mg/dl (7-20); CALCIUM 8.4 mg/dl (8.4-10.2); CHLORIDE 87 mmol/L (97-110); CREATININE 0.71 mg/dl (0.44-1.00); GLUCOSE 178 mg/dl (70-220); MAGNESIUM 1.4 mg/dl (1.7-2.5); POTASSIUM 3.7 mmol/L (3.5-5.1); SODIUM 134 mmol/L (135-144)
[2017-10-25 07:52] LABS: ANION GAP 7 (8-16); CARBON DIOXIDE 44 mmol/L (21-31)
[2017-10-25] MEDS: LACTULOSE 30ML CUP PO ×2 (08:32→20:13)
[2017-10-25] MEDS: NYSTATIN 30 GM POWDER BTL TOP ×2 (08:33→20:14)
[2017-10-25] MEDS: SPIRONOLACTONE 50 MG TAB PO (08:33)
[2017-10-25] MEDS: INSULIN GLARGINE [LANTus] (100 UNITS/ML) SYG SC (08:37)
[2017-10-25] MEDS: INSULIN ASPART [NOVOLOG] 3 ML PEN SC ×7 (08:38→22:45)
[2017-10-25] MEDS: HEPARIN 5,000 UNIT/0.5 ML VIAL SC (08:38)
[2017-10-25] MEDS: MAGNESIUM SULFATE 3 GM in DEXTROSE 5% 100 ML IVPB (15:03)
[2017-10-25] MEDS: ACETAZOLAMIDE 500 MG INJ IV ×3 (15:11→22:44)
[2017-10-26] MEDS: FUROSEMIDE 40 MG TAB PO ×2 (06:54→17:14)
[2017-10-26] MEDS: HYDROCODONE/APAP (5/325) TAB PO ×2 (06:54→20:44)
[2017-10-26 07:01] LABS: ADD MAN DIFF? NO
[2017-10-26 07:04] LABS: BASOPHIL # 0.1 10^3/ul (0.0-0.1); BASOPHILS % 1.3 % (0.0-2.0); HEMATOCRIT 28.5 % (37.0-47.0); HEMOGLOBIN 8.8 g/dl (12.0-16.0); LYMPHOCYTES # 1.2 10^3/ul (0.8-2.9); LYMPHOCYTES % 21.1 % (15.0-51.0); MEAN CORPUSCULAR HEMOGLOBIN 30.4 pg (29.0-33.0); MEAN CORPUSCULAR HGB CONC 30.9 g/dl (32.0-37.0); MEAN CORPUSCULAR VOLUME 98.6 fl (82.0-101.0); MEAN PLATELET VOLUME 10.5 fl (7.4-10.4); MONOCYTE # 0.8 10^3/ul (0.3-0.9); MONOCYTES % 14.7 % (0.0-11.0); NEUTROPHIL # 3.4 10^3/ul (1.6-7.5); NEUTROPHILS % 61.3 % (39.0-77.0); NUCLEATED RED BLOOD CELLS% 0.4 /100WBC (0.0-0.0); PLATELET COUNT 108 10^3/UL (140-415); RED BLOOD COUNT 2.89 10^6/ul (4.20-5.40)
[2017-10-26 07:04] LABS: WHITE BLOOD COUNT 5.5 10^3/ul (4.8-10.8)
[2017-10-26 07:56] LABS: PHOSPHORUS 4.4 mg/dl (2.5-4.9)
[2017-10-26 07:56] LABS: MAGNESIUM 1.5 mg/dl (1.7-2.5)
[2017-10-26 09:00] LABS: BLOOD UREA NITROGEN 20 mg/dl (7-20); CALCIUM 8.5 mg/dl (8.4-10.2); CHLORIDE 89 mmol/L (97-110); CREATININE 0.81 mg/dl (0.44-1.00); GLUCOSE 199 mg/dl (70-220); POTASSIUM 3.6 mmol/L (3.5-5.1); SODIUM 133 mmol/L (135-144)
[2017-10-26] MEDS: LACTULOSE 30ML CUP PO ×2 (09:00→20:41)
[2017-10-26] MEDS: SPIRONOLACTONE 50 MG TAB PO (09:07)
[2017-10-26] MEDS: ACETAZOLAMIDE 500 MG INJ IV ×2 (09:08→20:41)
[2017-10-26] MEDS: NYSTATIN 30 GM POWDER BTL TOP ×2 (09:11→21:00)
[2017-10-26] MEDS: INSULIN ASPART [NOVOLOG] 3 ML PEN SC ×7 (09:16→20:42)
[2017-10-26] MEDS: INSULIN GLARGINE [LANTus] (100 UNITS/ML) SYG SC (09:17)
[2017-10-26 09:28] LABS: ANION GAP 6 (8-16)
[2017-10-26 09:30] LABS: CARBON DIOXIDE 43 mmol/L (21-31)
[2017-10-26] MEDS: MAGNESIUM SULFATE 2 GM/50 ML 50 ML IVPB (11:16)
== END 2017-10-26 21:14 | DRG 870 ==
LOC: ICU 09-02 11:05 → TEL 09-15 20:15 → 5EC 09-21 05:44 → E/R 12:35 → 5EC 10-09 23:26 → TEL 15:50
PROC: 02HV33Z Insertion of Infusion Device into Superior Vena Cava, Percutaneous Approach (ICD-10-PCS; 2017-09-03)
PROC: 0W993ZZ Drainage of Right Pleural Cavity, Percutaneous Approach (ICD-10-PCS; 2017-09-03)
PROC: 5A1955Z Respiratory Ventilation, Greater than 96 Consecutive Hours (ICD-10-PCS; principal; 2017-09-04)
PROC: 0BH17EZ Insertion of Endotracheal Airway into Trachea, Via Natural or Artificial Opening (ICD-10-PCS; 2017-09-04)
PROC: 0CJS8ZZ Inspection of Larynx, Via Natural or Artificial Opening Endoscopic (ICD-10-PCS; 2017-10-02)
PROC: 0W9G3ZZ Drainage of Peritoneal Cavity, Percutaneous Approach (ICD-10-PCS; 2017-10-20)
DX: A41.9 Sepsis, unspecified organism (principal); J18.9 Pneumonia, unspecified organism; J96.22 Acute and chronic respiratory failure with hypercapnia; I50.33 Acute on chronic diastolic (congestive) heart failure; J96.01 Acute respiratory failure with hypoxia; Z68.41 Body mass index [BMI] 40.0-44.9, adult; J90 Pleural effusion, not elsewhere classified; I85.10 Secondary esophageal varices without bleeding; E87.3 Alkalosis; J44.0 Chronic obstructive pulmonary disease with (acute) lower respiratory infection; E87.0 Hyperosmolality and hypernatremia; D47.3 Essential (hemorrhagic) thrombocythemia; E66.01 Morbid (severe) obesity due to excess calories; D69.6 Thrombocytopenia, unspecified; Z72.0 Tobacco use; K75.81 Nonalcoholic steatohepatitis (NASH); G47.33 Obstructive sleep apnea (adult) (pediatric); I11.0 Hypertensive heart disease with heart failure; B19.20 Unspecified viral hepatitis C without hepatic coma; E11.9 Type 2 diabetes mellitus without complications; M25.562 Pain in left knee; M25.561 Pain in right knee; Z60.2 Problems related to living alone; E87.5 Hyperkalemia; K72.90 Hepatic failure, unspecified without coma; R60.1 Generalized edema; Z66 Do not resuscitate; R50.9 Fever, unspecified; I87.8 Other specified disorders of veins; R13.10 Dysphagia, unspecified; R49.0 Dysphonia; K21.9 Gastro-esophageal reflux disease without esophagitis; J32.9 Chronic sinusitis, unspecified
CPT/HCPCS: 36415; 36569; 36600; 70450; 70553; 71045; 71275; 73560; 74018; 74176; 74230; 76705; 76937; 76942; 80048; 80053; 80076; 80202; 81001; 82042; 82140; 82550; 82553; 82607; 82746; 82803; 82962; 83036; 83605; 83690; 83735; 83880; 84100; 84145; 84157; 84443; 84484; 85025; 85378; 85610; 85730; 86703; 86704; 86706; 86708; 86709; 86803; 87040; 87070; 87081; 87086; 87102; 87116; 87275; 87276; 87279; 87280; 87340; 87449; 89051; 92526; 92610; 92611; 93005; 93306; 93970; 94002; 94003; 94640; 94644; 94660; 94664; 94770; 96365; 96366; 96368; 96375; 97110; 97162; 97166; 97530; 97535; 99291-25; J1120

== ENCOUNTER 2018-01-25 22:50 | Inpatient (IN) | payer OTHER ==
[2018-01-26] MEDS ORDERED: BISACODYL (EC) 5 MG TAB PO (00:30)
[2018-01-26] MEDS ORDERED: ONDANSETRON 4 MG INJ IV (00:30)
[2018-01-26] MEDS ORDERED: DOCUSATE SODIUM 100 MG CAP PO (00:30)
[2018-01-26] MEDS ORDERED: NACL 0.9% 3 ML SYG IV (00:30)
[2018-01-26] MEDS: SOD CHLORIDE 0.9% 1,000 ML IV (00:42)
[2018-01-26] MEDS: PIPER-TAZO 3.375 GM IV (PMX) 100 ML IVPB ×3 (00:42→12:53)
[2018-01-26 00:46] LABS: ADD MAN DIFF? NO
[2018-01-26 00:49] LABS: ABNORMAL IP MESSAGE 1; BASOPHIL # 0.1 10^3/ul (0.0-0.1); BASOPHILS % 1.1 % (0.0-2.0); HEMATOCRIT 37.2 % (37.0-47.0); HEMOGLOBIN 11.5 g/dl (12.0-16.0); LYMPHOCYTES % 21.4 % (15.0-51.0); MEAN CORPUSCULAR HEMOGLOBIN 28.7 pg (29.0-33.0); MEAN CORPUSCULAR HGB CONC 30.9 g/dl (32.0-37.0); MEAN CORPUSCULAR VOLUME 92.8 fl (82.0-101.0); MEAN PLATELET VOLUME 10.4 fl (7.4-10.4); MONOCYTE # 0.6 10^3/ul (0.3-0.9); MONOCYTES % 12.6 % (0.0-11.0); NEUTROPHIL # 2.8 10^3/ul (1.6-7.5); NEUTROPHILS % 63.8 % (39.0-77.0); PLATELET COUNT 64 10^3/UL (140-415); RED BLOOD COUNT 4.01 10^6/ul (4.20-5.40); RED CELL DISTRIBUTION WIDTH 17.1 % (11.5-14.5)
[2018-01-26 00:49] LABS: WHITE BLOOD COUNT 4.4 10^3/ul (4.8-10.8)
[2018-01-26 01:06] LABS: POSITIVE DIFF @See below
[2018-01-26 01:14] LABS: MAGNESIUM 1.5 mg/dl (1.7-2.5)
[2018-01-26 01:15] LABS: ALANINE AMINOTRANSFERASE 47 IU/L (13-69); ALBUMIN 2.2 g/dl (3.3-4.9); ALBUMIN/GLOBULIN RATIO 0.47; ALKALINE PHOSPHATASE 106 IU/L (42-121); ANION GAP 0 (5-13); ASPARTATE AMINO TRANSFERASE 76 IU/L (15-46); BILIRUBIN,INDIRECT 1.5 mg/dl (0-1.1); BILIRUBIN,TOTAL 1.5 mg/dl (0.2-1.3); BLOOD UREA NITROGEN 17 mg/dl (7-20); CALCIUM 8.5 mg/dl (8.4-10.2); CARBON DIOXIDE 38 mmol/L (21-31); CHLORIDE 100 mmol/L (97-110); CREATINE KINASE 25 IU/L (23-200); Estimated GFR > 60 mL/min (>60); GLUCOSE 225 mg/dl (70-220); POTASSIUM 4.5 mmol/L (3.5-5.1); SODIUM 138 mmol/L (135-144); TOTAL PROTEIN 6.8 g/dl (6.1-8.1)
[2018-01-26 01:27] LABS: CK INDEX 1.8; CK-MB 0.46 ng/ml (0.0-2.4); TROPONIN-I < 0.012 ng/ml (0.000-0.120)
[2018-01-26] MEDS ORDERED: GLUCOSE GEL 15 GRAM TUBE BUCCAL (02:00)
[2018-01-26] MEDS ORDERED: GLUCAGON 1 MG INJ IM (02:00)
[2018-01-26] MEDS ORDERED: DEXTROSE 50% 50 ML SYRINGE IV ×2 (02:00)
[2018-01-26] MEDS ORDERED: GLUCOSE GEL 15 GRAM TUBE PO ×2 (02:00)
[2018-01-26] MEDS: INSULIN ASPART [NOVOLOG] 3 ML PEN SC ×5 (05:00→21:18)
[2018-01-26 06:23] LABS: AMMONIA 78 umol/l (9-30)
[2018-01-26 07:20] LABS: CREATINE KINASE 27 IU/L (23-200)
[2018-01-26 07:33] LABS: CK INDEX 1.4; CK-MB 0.39 ng/ml (0.0-2.4); TROPONIN-I 0.012 ng/ml (0.000-0.120)
[2018-01-26] MEDS ORDERED: LACTULOSE 30ML CUP PO (08:30)
[2018-01-26] MEDS ORDERED: metroNIDAZOLE 500 MG/NS (PMX) 100 ML IVPB (08:30)
[2018-01-26] MEDS: SOD CHLORIDE 0.9% 100 ML (09:28)
[2018-01-26] MEDS: IOHEXOL 300MG/ML 150 ML BTL (09:28)
[2018-01-26] MEDS: MAGNESIUM SULFATE 3 GM in DEXTROSE 5% 100 ML IVPB (09:40)
[2018-01-26] MEDS: PANTOPRAZOLE (EC) 40 MG TAB PO (09:55)
[2018-01-26] MEDS: SACCHAROMYCES BOULARDII 250 MG CAP PO (09:55)
[2018-01-26] MEDS: NYSTATIN 30 GM POWDER BTL TOP ×2 (09:58→21:13)
[2018-01-26] MEDS ORDERED: INSULIN ASPART [NOVOLOG] 3 ML PEN SC (12:00)
[2018-01-26] MEDS: LACTULOSE 30ML CUP PO ×2 (12:53→17:48)
[2018-01-26] MEDS: ACETAMINOPHEN 325 MG TAB PO ×2 (13:01→22:10)
[2018-01-26] MEDS: metroNIDAZOLE 500 MG/NS (PMX) 100 ML IVPB (13:53)
[2018-01-27] MEDS ORDERED: ACCU-CHEK XX ×2 (02:00)
[2018-01-27] MEDS: ACCU-CHEK XX (02:00)
[2018-01-27] MEDS: morphine 2 MG INJ IV (03:18)
[2018-01-27 05:57] LABS: ADD MAN DIFF? NO
[2018-01-27] MEDS: LACTULOSE 30ML CUP PO ×5 (06:06→23:10)
[2018-01-27] MEDS: PANTOPRAZOLE (EC) 40 MG TAB PO (06:06)
[2018-01-27 06:22] LABS: ABNORMAL IP MESSAGE 1; BASOPHIL # 0.1 10^3/ul (0.0-0.1); BASOPHILS % 1.6 % (0.0-2.0); HEMATOCRIT 34.2 % (37.0-47.0); HEMOGLOBIN 10.6 g/dl (12.0-16.0); LYMPHOCYTES % 26.6 % (15.0-51.0); MEAN CORPUSCULAR HEMOGLOBIN 28.8 pg (29.0-33.0); MEAN CORPUSCULAR VOLUME 92.9 fl (82.0-101.0); MEAN PLATELET VOLUME 10.6 fl (7.4-10.4); MONOCYTE # 0.4 10^3/ul (0.3-0.9); MONOCYTES % 9.4 % (0.0-11.0); NEUTROPHIL # 2.3 10^3/ul (1.6-7.5); NEUTROPHILS % 60.5 % (39.0-77.0); PLATELET COUNT 58 10^3/UL (140-415); RED BLOOD COUNT 3.68 10^6/ul (4.20-5.40); RED CELL DISTRIBUTION WIDTH 17.1 % (11.5-14.5)
[2018-01-27 06:22] LABS: WHITE BLOOD COUNT 3.7 10^3/ul (4.8-10.8)
[2018-01-27 06:31] LABS: POSITIVE DIFF @See below
[2018-01-27 06:32] LABS: AMMONIA 27 umol/l (9-30)
[2018-01-27 06:33] LABS: INR 1.59; PROTIME 19.3 Sec (11.9-14.9); PT RATIO 1.5
[2018-01-27 06:33] LABS: MAGNESIUM 1.4 mg/dl (1.7-2.5)
[2018-01-27 06:34] LABS: PARTIAL THROMBOPLASTIN TIME 33.7 Sec (23.0-35.0)
[2018-01-27 06:45] LABS: ALANINE AMINOTRANSFERASE 41 IU/L (13-69); ALBUMIN 1.9 g/dl (3.3-4.9); ALBUMIN/GLOBULIN RATIO 0.45; ALKALINE PHOSPHATASE 91 IU/L (42-121); ASPARTATE AMINO TRANSFERASE 57 IU/L (15-46); BILIRUBIN,INDIRECT 1.4 mg/dl (0-1.1); BILIRUBIN,TOTAL 1.4 mg/dl (0.2-1.3); BLOOD UREA NITROGEN 16 mg/dl (7-20); CALCIUM 8.2 mg/dl (8.4-10.2); CARBON DIOXIDE 38 mmol/L (21-31); CHLORIDE 102 mmol/L (97-110); CREATININE 0.51 mg/dl (0.44-1.00); Estimated GFR > 60 mL/min (>60); GLUCOSE 155 mg/dl (70-220); POTASSIUM 4.1 mmol/L (3.5-5.1); SODIUM 139 mmol/L (135-144); TOTAL PROTEIN 6.1 g/dl (6.1-8.1)
[2018-01-27 06:53] LABS: ANION GAP 0 (5-13)
[2018-01-27] MEDS: INSULIN ASPART [NOVOLOG] 3 ML PEN SC ×4 (08:53→21:01)
[2018-01-27] MEDS: NYSTATIN 30 GM POWDER BTL TOP ×2 (09:03→21:02)
[2018-01-27] MEDS: SACCHAROMYCES BOULARDII 250 MG CAP PO (09:03)
[2018-01-27] MEDS: ACETAMINOPHEN 325 MG TAB PO (10:29)
[2018-01-27 13:55] LABS: TROPONIN-I < 0.012 ng/ml (0.000-0.120)
[2018-01-27] MEDS: FUROSEMIDE 20 MG TAB PO (14:29)
[2018-01-27] MEDS: SPIRONOLACTONE 50 MG TAB PO (15:15)
[2018-01-27] MEDS: HYDROCODONE/APAP (10/325) TAB PO ×2 (15:47→23:10)
[2018-01-28 05:42] LABS: ADD MAN DIFF? NO
[2018-01-28 05:54] LABS: ABNORMAL IP MESSAGE 1; BASOPHIL # 0.1 10^3/ul (0.0-0.1); BASOPHILS % 1.3 % (0.0-2.0); HEMATOCRIT 33.7 % (37.0-47.0); HEMOGLOBIN 10.6 g/dl (12.0-16.0); LYMPHOCYTES % 26.7 % (15.0-51.0); MEAN CORPUSCULAR HEMOGLOBIN 29.2 pg (29.0-33.0); MEAN CORPUSCULAR HGB CONC 31.5 g/dl (32.0-37.0); MEAN CORPUSCULAR VOLUME 92.8 fl (82.0-101.0); MONOCYTE # 0.4 10^3/ul (0.3-0.9); MONOCYTES % 9.9 % (0.0-11.0); NEUTROPHIL # 2.3 10^3/ul (1.6-7.5); RED BLOOD COUNT 3.63 10^6/ul (4.20-5.40); RED CELL DISTRIBUTION WIDTH 17.5 % (11.5-14.5)
[2018-01-28 05:54] LABS: WHITE BLOOD COUNT 3.8 10^3/ul (4.8-10.8)
[2018-01-28] MEDS: LACTULOSE 30ML CUP PO (06:00)
[2018-01-28 06:15] LABS: MAGNESIUM 1.3 mg/dl (1.7-2.5)
[2018-01-28] MEDS: PANTOPRAZOLE (EC) 40 MG TAB PO (06:15)
[2018-01-28 06:24] LABS: POSITIVE DIFF @See below
[2018-01-28 06:25] LABS: PLATELET COUNT 53 10^3/UL (140-415)
[2018-01-28 06:27] LABS: ALANINE AMINOTRANSFERASE 41 IU/L (13-69); ALBUMIN 1.9 g/dl (3.3-4.9); ALBUMIN/GLOBULIN RATIO 0.43; ALKALINE PHOSPHATASE 92 IU/L (42-121); ANION GAP 2 (5-13); ASPARTATE AMINO TRANSFERASE 57 IU/L (15-46); BILIRUBIN,INDIRECT 1.4 mg/dl (0-1.1); BILIRUBIN,TOTAL 1.4 mg/dl (0.2-1.3); BLOOD UREA NITROGEN 15 mg/dl (7-20); CARBON DIOXIDE 37 mmol/L (21-31); CHLORIDE 101 mmol/L (97-110); CREATININE 0.54 mg/dl (0.44-1.00); Estimated GFR > 60 mL/min (>60); GLUCOSE 146 mg/dl (70-220); POTASSIUM 4.3 mmol/L (3.5-5.1); SODIUM 140 mmol/L (135-144); TOTAL PROTEIN 6.3 g/dl (6.1-8.1)
[2018-01-28] MEDS: NYSTATIN 30 GM POWDER BTL TOP ×2 (08:59→20:34)
[2018-01-28] MEDS: INSULIN ASPART [NOVOLOG] 3 ML PEN SC ×4 (08:59→20:34)
[2018-01-28] MEDS: SACCHAROMYCES BOULARDII 250 MG CAP PO (09:06)
[2018-01-28] MEDS: SPIRONOLACTONE 50 MG TAB PO (09:06)
[2018-01-28] MEDS: FUROSEMIDE 20 MG TAB PO (09:06)
[2018-01-28] MEDS: LEVOFLOXACIN 500 MG TAB PO (10:43)
[2018-01-28] MEDS: INSULIN GLARGINE [LANTus] (100 UNITS/ML) SYG SC (10:44)
[2018-01-28] MEDS: HYDROCODONE/APAP (10/325) TAB PO ×2 (10:56→15:09)
[2018-01-28] MEDS: MAGNESIUM SULFATE 2 GM/50 ML 50 ML IVPB (17:52)
[2018-01-29] MEDS: HYDROCODONE/APAP (10/325) TAB PO ×4 (00:27→23:35)
[2018-01-29] MEDS: LEVOFLOXACIN 500 MG TAB PO (05:56)
[2018-01-29] MEDS: PANTOPRAZOLE (EC) 40 MG TAB PO (05:57)
[2018-01-29 06:12] LABS: WHITE BLOOD COUNT 3.8 10^3/ul (4.8-10.8)
[2018-01-29 06:12] LABS: ABNORMAL IP MESSAGE 1; HEMATOCRIT 35.2 % (37.0-47.0); MEAN CORPUSCULAR HGB CONC 31.3 g/dl (32.0-37.0); MEAN CORPUSCULAR VOLUME 92.9 fl (82.0-101.0); PLATELET COUNT 39 10^3/UL (140-415); RED BLOOD COUNT 3.79 10^6/ul (4.20-5.40); RED CELL DISTRIBUTION WIDTH 17.4 % (11.5-14.5)
[2018-01-29 06:18] LABS: POSITIVE DIFF @See below
[2018-01-29 06:19] LABS: ADD MAN DIFF? YES
[2018-01-29 06:34] LABS: ALANINE AMINOTRANSFERASE 34 IU/L (13-69); ALBUMIN 2.1 g/dl (3.3-4.9); ALBUMIN/GLOBULIN RATIO 0.51; ALKALINE PHOSPHATASE 98 IU/L (42-121); ANION GAP -1 (5-13); ASPARTATE AMINO TRANSFERASE 66 IU/L (15-46); BILIRUBIN,INDIRECT 1.3 mg/dl (0-1.1); BILIRUBIN,TOTAL 1.3 mg/dl (0.2-1.3); BLOOD UREA NITROGEN 18 mg/dl (7-20); CALCIUM 8.1 mg/dl (8.4-10.2); CARBON DIOXIDE 38 mmol/L (21-31); CHLORIDE 99 mmol/L (97-110); CREATININE 0.54 mg/dl (0.44-1.00); Estimated GFR > 60 mL/min (>60); GLUCOSE 169 mg/dl (70-220); POTASSIUM 4.5 mmol/L (3.5-5.1); SODIUM 136 mmol/L (135-144); TOTAL PROTEIN 6.2 g/dl (6.1-8.1)
[2018-01-29 07:52] LABS: ANISOCYTOSIS 1+ (0-0); BAND NEUTROPHILS % (M) 1 % (0-4); LYMPHOCYTES #M 0.5 10^3/ul (0.8-2.9); LYMPHOCYTES % (M) 14 % (15-51); METAMYELOCYTES %M 1 % (0-0); MONOCYTE #M 0.2 10^3/ul (0.3-0.9); MONOCYTES % (M) 6 % (0-11); MYELOCYTES % (M) 1 % (0-0); OVALOCYTES 1+ (0-0); PLATELET ESTIMATE DECREASED; PLATELET MORPHOLOGY COMMENT @See below; POIKILOCYTOSIS 1+ (0-0); SEG NEUT #M 2.9 10^3/ul (1.6-7.5); SEGMENTED NEUTROPHILS (M) % 77 % (39-77); SMUDGE%M 14 % (0-0)
[2018-01-29 08:05] LABS: MAGNESIUM 1.4 mg/dl (1.7-2.5)
[2018-01-29] MEDS: INSULIN ASPART [NOVOLOG] 3 ML PEN SC ×4 (08:26→20:55)
[2018-01-29] MEDS: SPIRONOLACTONE 50 MG TAB PO (08:27)
[2018-01-29] MEDS: INSULIN GLARGINE [LANTus] (100 UNITS/ML) SYG SC (08:27)
[2018-01-29] MEDS: NYSTATIN 30 GM POWDER BTL TOP ×2 (08:28→20:52)
[2018-01-29] MEDS: FUROSEMIDE 20 MG TAB PO (08:28)
[2018-01-29] MEDS: LIDOCAINE 5% PATCH TD (13:03)
[2018-01-30] MEDS: LEVOFLOXACIN 500 MG TAB PO (05:43)
[2018-01-30] MEDS: PANTOPRAZOLE (EC) 40 MG TAB PO (05:43)
[2018-01-30 06:06] LABS: ADD MAN DIFF? NO
[2018-01-30 06:11] LABS: ABNORMAL IP MESSAGE 1; BASOPHIL # 0.1 10^3/ul (0.0-0.1); BASOPHILS % 1.1 % (0.0-2.0); HEMATOCRIT 35.6 % (37.0-47.0); HEMOGLOBIN 11.3 g/dl (12.0-16.0); LYMPHOCYTES # 1.1 10^3/ul (0.8-2.9); LYMPHOCYTES % 25.1 % (15.0-51.0); MEAN CORPUSCULAR HEMOGLOBIN 30.2 pg (29.0-33.0); MEAN CORPUSCULAR HGB CONC 31.7 g/dl (32.0-37.0); MEAN CORPUSCULAR VOLUME 95.2 fl (82.0-101.0); MEAN PLATELET VOLUME 11.4 fl (7.4-10.4); MONOCYTE # 0.5 10^3/ul (0.3-0.9); MONOCYTES % 10.2 % (0.0-11.0); NEUTROPHIL # 2.7 10^3/ul (1.6-7.5); NEUTROPHILS % 61.6 % (39.0-77.0); RED BLOOD COUNT 3.74 10^6/ul (4.20-5.40); RED CELL DISTRIBUTION WIDTH 17.4 % (11.5-14.5)
[2018-01-30 06:11] LABS: WHITE BLOOD COUNT 4.4 10^3/ul (4.8-10.8)
[2018-01-30 06:28] LABS: PLATELET COUNT 51 10^3/UL (140-415)
[2018-01-30 06:29] LABS: POSITIVE DIFF @See below
[2018-01-30 06:46] LABS: ALANINE AMINOTRANSFERASE 38 IU/L (13-69); ALBUMIN 2.2 g/dl (3.3-4.9); ALBUMIN/GLOBULIN RATIO 0.46; ALKALINE PHOSPHATASE 118 IU/L (42-121); ANION GAP 0 (5-13); ASPARTATE AMINO TRANSFERASE 74 IU/L (15-46); BLOOD UREA NITROGEN 16 mg/dl (7-20); CALCIUM 8.1 mg/dl (8.4-10.2); CARBON DIOXIDE 38 mmol/L (21-31); CHLORIDE 99 mmol/L (97-110); CREATININE 0.56 mg/dl (0.44-1.00); Estimated GFR > 60 mL/min (>60); GLUCOSE 216 mg/dl (70-220); POTASSIUM 4.5 mmol/L (3.5-5.1); SODIUM 137 mmol/L (135-144); TOTAL PROTEIN 6.9 g/dl (6.1-8.1)
[2018-01-30 06:50] LABS: MAGNESIUM 1.3 mg/dl (1.7-2.5)
[2018-01-30] MEDS: SPIRONOLACTONE 50 MG TAB PO (08:01)
[2018-01-30] MEDS: FUROSEMIDE 20 MG TAB PO (08:01)
[2018-01-30] MEDS: NYSTATIN 30 GM POWDER BTL TOP ×2 (08:02→21:08)
[2018-01-30] MEDS: LIDOCAINE 5% PATCH TD (08:02)
[2018-01-30] MEDS: INSULIN ASPART [NOVOLOG] 3 ML PEN SC ×4 (08:04→21:08)
[2018-01-30] MEDS: INSULIN GLARGINE [LANTus] (100 UNITS/ML) SYG SC (08:05)
[2018-01-30] MEDS: HYDROCODONE/APAP (10/325) TAB PO (14:35)
[2018-01-30] MEDS: morphine 2 MG INJ IV (20:57)
[2018-01-31] MEDS: PANTOPRAZOLE (EC) 40 MG TAB PO (05:21)
[2018-01-31] MEDS: LEVOFLOXACIN 500 MG TAB PO (05:21)
[2018-01-31 07:09] LABS: MAGNESIUM 1.1 mg/dl (1.7-2.5)
[2018-01-31] MEDS: SPIRONOLACTONE 50 MG TAB PO (08:05)
[2018-01-31] MEDS: LIDOCAINE 5% PATCH TD (08:06)
[2018-01-31] MEDS: FUROSEMIDE 20 MG TAB PO (08:06)
[2018-01-31] MEDS: NYSTATIN 30 GM POWDER BTL TOP ×2 (08:06→20:54)
[2018-01-31] MEDS: INSULIN ASPART [NOVOLOG] 3 ML PEN SC ×4 (08:09→20:53)
[2018-01-31] MEDS: INSULIN GLARGINE [LANTus] (100 UNITS/ML) SYG SC (08:13)
[2018-01-31] MEDS: HYDROCODONE/APAP (10/325) TAB PO ×3 (08:14→20:54)
[2018-01-31] MEDS: MAGNESIUM SULFATE 4 GM/100 ML 100 ML IVPB (12:57)
[2018-01-31] MEDS: LIDOCAINE 1% (MPF) 5 ML VIAL (15:12)
[2018-02-01] MEDS: HYDROCODONE/APAP (10/325) TAB PO ×2 (04:37→16:14)
[2018-02-01] MEDS: PANTOPRAZOLE (EC) 40 MG TAB PO (05:48)
[2018-02-01 07:39] LABS: ANION GAP 2 (5-13); BLOOD UREA NITROGEN 18 mg/dl (7-20); CARBON DIOXIDE 35 mmol/L (21-31); CHLORIDE 96 mmol/L (97-110); CREATININE 0.51 mg/dl (0.44-1.00); Estimated GFR > 60 mL/min (>60); GLUCOSE 293 mg/dl (70-220); MAGNESIUM 1.4 mg/dl (1.7-2.5); POTASSIUM 4.6 mmol/L (3.5-5.1); SODIUM 133 mmol/L (135-144)
[2018-02-01] MEDS: LIDOCAINE 5% PATCH TD (08:08)
[2018-02-01] MEDS: SPIRONOLACTONE 50 MG TAB PO (08:09)
[2018-02-01] MEDS: FUROSEMIDE 20 MG TAB PO (08:09)
[2018-02-01] MEDS: INSULIN ASPART [NOVOLOG] 3 ML PEN SC ×3 (08:10→17:34)
[2018-02-01] MEDS: INSULIN GLARGINE [LANTus] (100 UNITS/ML) SYG SC (08:10)
[2018-02-01] MEDS: NYSTATIN 30 GM POWDER BTL TOP (08:11)
[2018-02-01] MEDS: MAGNESIUM SULFATE 4 GM/100 ML 100 ML IVPB (11:42)
== END 2018-02-01 18:20 | DRG 187 ==
LOC: 2NE 22:50
PROC: 0W993ZZ Drainage of Right Pleural Cavity, Percutaneous Approach (ICD-10-PCS; principal; 2018-01-31)
DX: J94.8 Other specified pleural conditions (principal); S22.41XA Multiple fractures of ribs, right side, initial encounter for closed fracture; I50.32 Chronic diastolic (congestive) heart failure; Z68.42 Body mass index [BMI] 45.0-49.9, adult; K76.6 Portal hypertension; I11.0 Hypertensive heart disease with heart failure; K80.20 Calculus of gallbladder without cholecystitis without obstruction; E66.01 Morbid (severe) obesity due to excess calories; D69.6 Thrombocytopenia, unspecified; D64.9 Anemia, unspecified; F32.9 Major depressive disorder, single episode, unspecified; F17.210 Nicotine dependence, cigarettes, uncomplicated; Z59.0 Homelessness; R16.1 Splenomegaly, not elsewhere classified; I86.4 Gastric varices; K70.30 Alcoholic cirrhosis of liver without ascites; K70.0 Alcoholic fatty liver; I95.1 Orthostatic hypotension; X58.XXXA Exposure to other specified factors, initial encounter
CPT/HCPCS: 32555; 71045; 71250; 74177; 76705; 78226; 80048; 80053; 82140; 82550; 82553; 82962; 83735; 84484; 85025; 85610; 85730; 87081; 97110; 97161; 97530

== ENCOUNTER 2018-02-17 19:49 | Inpatient (IN) | payer OTHER ==
[2018-02-17] MEDS: HYDROCODONE/APAP (5/325) TAB PO (21:55)
[2018-02-17] MEDS ORDERED: LORAZEPAM 0.5 MG TAB PO (22:00)
[2018-02-17] MEDS ORDERED: ALBUTEROL HFA 8 GM INHALER INH (22:00)
[2018-02-17] MEDS: LACTULOSE 30ML CUP PO ×2 (22:00→22:46)
[2018-02-17] MEDS ORDERED: NACL 0.9% 3 ML SYG IV (22:00)
[2018-02-17] MEDS ORDERED: ACETAMINOPHEN 325 MG TAB PO (22:00)
[2018-02-17] MEDS ORDERED: ALBUTEROL/IPRATROPIUM (NEB) 3 ML AMP HHN (22:00)
[2018-02-17] MEDS ORDERED: ONDANSETRON 4 MG INJ IV (22:00)
[2018-02-17] MEDS: ZOLPIDEM 5 MG TAB PO (22:46)
[2018-02-18] MEDS ORDERED: GLUCOSE GEL 15 GRAM TUBE PO ×2 (02:30)
[2018-02-18] MEDS ORDERED: GLUCOSE GEL 15 GRAM TUBE BUCCAL (02:30)
[2018-02-18] MEDS ORDERED: DEXTROSE 50% 50 ML SYRINGE IV ×2 (02:30)
[2018-02-18] MEDS ORDERED: GLUCAGON 1 MG INJ IM (02:30)
[2018-02-18] MEDS: PANTOPRAZOLE (EC) 40 MG TAB PO (06:18)
[2018-02-18 06:34] LABS: ADD MAN DIFF? NO
[2018-02-18 06:47] LABS: ABNORMAL IP MESSAGE 1; BASOPHIL # 0.1 10^3/ul (0.0-0.1); BASOPHILS % 1.2 % (0.0-2.0); HEMOGLOBIN 11.1 g/dl (12.0-16.0); LYMPHOCYTES # 1.2 10^3/ul (0.8-2.9); LYMPHOCYTES % 28.1 % (15.0-51.0); MEAN CORPUSCULAR HEMOGLOBIN 29.9 pg (29.0-33.0); MEAN CORPUSCULAR HGB CONC 33.6 g/dl (32.0-37.0); MEAN CORPUSCULAR VOLUME 88.9 fl (82.0-101.0); MEAN PLATELET VOLUME 10.2 fl (7.4-10.4); MONOCYTE # 0.5 10^3/ul (0.3-0.9); MONOCYTES % 10.8 % (0.0-11.0); NEUTROPHIL # 2.5 10^3/ul (1.6-7.5); NEUTROPHILS % 58.7 % (39.0-77.0); RED BLOOD COUNT 3.71 10^6/ul (4.20-5.40); RED CELL DISTRIBUTION WIDTH 15.6 % (11.5-14.5)
[2018-02-18 06:47] LABS: WHITE BLOOD COUNT 4.2 10^3/ul (4.8-10.8)
[2018-02-18 07:06] LABS: ALANINE AMINOTRANSFERASE 43 IU/L (13-69); ALBUMIN 2.3 g/dl (3.3-4.9); ALBUMIN/GLOBULIN RATIO 0.46; ALKALINE PHOSPHATASE 164 IU/L (42-121); ANION GAP 2 (5-13); ASPARTATE AMINO TRANSFERASE 79 IU/L (15-46); BILIRUBIN,INDIRECT 0.9 mg/dl (0-1.1); BILIRUBIN,TOTAL 0.9 mg/dl (0.2-1.3); BLOOD UREA NITROGEN 12 mg/dl (7-20); CALCIUM 8.8 mg/dl (8.4-10.2); CARBON DIOXIDE 29 mmol/L (21-31); CHLORIDE 106 mmol/L (97-110); CREATININE 0.56 mg/dl (0.44-1.00); Estimated GFR > 60 mL/min (>60); GLUCOSE 210 mg/dl (70-220); POTASSIUM 4.4 mmol/L (3.5-5.1); SODIUM 137 mmol/L (135-144); TOTAL PROTEIN 7.2 g/dl (6.1-8.1)
[2018-02-18 07:13] LABS: PLATELET COUNT 64 10^3/UL (140-415); POSITIVE DIFF @See below
[2018-02-18] MEDS: INSULIN ASPART [NOVOLOG] 3 ML PEN SC ×4 (08:07→21:37)
[2018-02-18] MEDS: FLUTICASONE/VILANTEROL 200-25 INH DEVICE INH (08:44)
[2018-02-18] MEDS: FUROSEMIDE 40 MG TAB PO (08:46)
[2018-02-18] MEDS: MAGNESIUM OXIDE 400 MG TAB PO ×2 (08:46→21:20)
[2018-02-18] MEDS: SPIRONOLACTONE 50 MG TAB PO (08:46)
[2018-02-18] MEDS: SERTRALINE 100 MG TAB PO (08:46)
[2018-02-18] MEDS: SACCHAROMYCES BOULARDII 250 MG CAP PO (08:46)
[2018-02-18] MEDS: NICOTINE (14 MG/24 HR) PATCH TRANSDERM (08:47)
[2018-02-18] MEDS: LACTULOSE 30ML CUP PO ×2 (08:49→21:20)
[2018-02-18] MEDS ORDERED: BUDESONIDE (NEB) 0.25 MG/2 ML AMP INH (09:00)
[2018-02-18 12:56] LABS: PROTIME 16.3 Sec (11.9-14.9); PT RATIO 1.3
[2018-02-18 12:57] LABS: PARTIAL THROMBOPLASTIN TIME 34.3 Sec (23.0-35.0)
[2018-02-18] MEDS: MONTELUKAST 10 MG TAB PO (21:20)
[2018-02-18] MEDS: hydrOXYzine HCL 10 MG TAB PO (21:30)
[2018-02-18] MEDS: ZOLPIDEM 5 MG TAB PO (21:30)
[2018-02-19] MEDS: ACCU-CHEK XX (02:00)
[2018-02-19 06:01] LABS: ADD MAN DIFF? NO
[2018-02-19] MEDS: HYDROCODONE/APAP (5/325) TAB PO (06:16)
[2018-02-19] MEDS: PANTOPRAZOLE (EC) 40 MG TAB PO (06:16)
[2018-02-19 06:39] LABS: ANION GAP 5 (5-13); BLOOD UREA NITROGEN 16 mg/dl (7-20); CALCIUM 8.6 mg/dl (8.4-10.2); CARBON DIOXIDE 31 mmol/L (21-31); CHLORIDE 102 mmol/L (97-110); CREATININE 0.49 mg/dl (0.44-1.00); Estimated GFR > 60 mL/min (>60); GLUCOSE 153 mg/dl (70-220); MAGNESIUM 1.4 mg/dl (1.7-2.5); POTASSIUM 4.1 mmol/L (3.5-5.1); SODIUM 138 mmol/L (135-144)
[2018-02-19 07:00] LABS: WHITE BLOOD COUNT 4.2 10^3/ul (4.8-10.8)
[2018-02-19 07:00] LABS: ABNORMAL IP MESSAGE 1; HEMATOCRIT 34.8 % (37.0-47.0); HEMOGLOBIN 11.4 g/dl (12.0-16.0); LYMPHOCYTES # 1.1 10^3/ul (0.8-2.9); MEAN CORPUSCULAR HEMOGLOBIN 29.2 pg (29.0-33.0); MEAN CORPUSCULAR HGB CONC 32.8 g/dl (32.0-37.0); MEAN CORPUSCULAR VOLUME 89.2 fl (82.0-101.0); MEAN PLATELET VOLUME 9.7 fl (7.4-10.4); MONOCYTE # 0.4 10^3/ul (0.3-0.9); NEUTROPHIL # 2.7 10^3/ul (1.6-7.5); NEUTROPHILS % 63.8 % (39.0-77.0); PLATELET COUNT 80 10^3/UL (140-415); RED CELL DISTRIBUTION WIDTH 15.6 % (11.5-14.5)
[2018-02-19 07:02] LABS: POSITIVE DIFF @See below
[2018-02-19] MEDS: LACTULOSE 30ML CUP PO (09:00)
[2018-02-19] MEDS: SACCHAROMYCES BOULARDII 250 MG CAP PO (09:30)
[2018-02-19] MEDS: SPIRONOLACTONE 50 MG TAB PO (09:30)
[2018-02-19] MEDS: SERTRALINE 100 MG TAB PO (09:30)
[2018-02-19] MEDS: NICOTINE (14 MG/24 HR) PATCH TRANSDERM (09:30)
[2018-02-19] MEDS: MAGNESIUM OXIDE 400 MG TAB PO ×2 (09:30→12:41)
[2018-02-19] MEDS: FUROSEMIDE 40 MG TAB PO (09:31)
[2018-02-19] MEDS: FLUTICASONE/VILANTEROL 200-25 INH DEVICE INH (09:33)
[2018-02-19] MEDS: INSULIN ASPART [NOVOLOG] 3 ML PEN SC ×3 (12:30→18:32)
[2018-02-19] MEDS: MAGNESIUM SULFATE 2 GM/50 ML 50 ML IVPB (12:41)
[2018-02-19] MEDS: hydrOXYzine HCL 10 MG TAB PO (14:56)
[2018-02-19] MEDS: MUPIROCIN 2% 22 GM OINT TOP (14:56)
[2018-02-20] MEDS ORDERED: MAGNESIUM OXIDE 400 MG TAB PO (09:00)
== END 2018-02-19 18:51 | DRG 948 ==
LOC: TEL 02-18 02:45 → 2NE 19:49 → 5EC 20:16
PROVIDERS: Internal Medicine
DX: R60.1 Generalized edema (principal); K76.6 Portal hypertension; Z68.41 Body mass index [BMI] 40.0-44.9, adult; D61.818 Other pancytopenia; R16.1 Splenomegaly, not elsewhere classified; I10 Essential (primary) hypertension; J45.909 Unspecified asthma, uncomplicated; E66.01 Morbid (severe) obesity due to excess calories; B95.62 Methicillin resistant Staphylococcus aureus infection as the cause of diseases classified elsewhere; E11.9 Type 2 diabetes mellitus without complications; B18.2 Chronic viral hepatitis C; K76.0 Fatty (change of) liver, not elsewhere classified; K70.30 Alcoholic cirrhosis of liver without ascites; Z87.891 Personal history of nicotine dependence; R06.03 Acute respiratory distress
CPT/HCPCS: 71045; 76604; 80048; 80053; 82962; 83735; 85025; 85610; 85730; 87081

== ENCOUNTER 2018-03-26 14:17 | Observation (INO) | payer OTHER ==
[2018-03-26 16:31] LABS: ADD MAN DIFF? NO
[2018-03-26 16:34] LABS: WHITE BLOOD COUNT 4.5 10^3/ul (4.8-10.8)
[2018-03-26 16:34] LABS: ABNORMAL IP MESSAGE 1; BASOPHILS % 0.9 % (0.0-2.0); HEMATOCRIT 31.6 % (37.0-47.0); HEMOGLOBIN 10.3 g/dl (12.0-16.0); LYMPHOCYTES # 1.2 10^3/ul (0.8-2.9); LYMPHOCYTES % 26.7 % (15.0-51.0); MEAN CORPUSCULAR HEMOGLOBIN 28.8 pg (29.0-33.0); MEAN CORPUSCULAR HGB CONC 32.6 g/dl (32.0-37.0); MEAN CORPUSCULAR VOLUME 88.3 fl (82.0-101.0); MEAN PLATELET VOLUME 10.8 fl (7.4-10.4); MONOCYTE # 0.5 10^3/ul (0.3-0.9); MONOCYTES % 11.7 % (0.0-11.0); NEUTROPHIL # 2.7 10^3/ul (1.6-7.5); RED BLOOD COUNT 3.58 10^6/ul (4.20-5.40); RED CELL DISTRIBUTION WIDTH 14.5 % (11.5-14.5)
[2018-03-26 16:38] LABS: POSITIVE DIFF @See below
[2018-03-26 16:39] LABS: PLATELET COUNT 77 10^3/UL (140-415)
[2018-03-26 16:43] LABS: ALANINE AMINOTRANSFERASE 43 IU/L (13-69); ALBUMIN 2.3 g/dl (3.3-4.9); ALKALINE PHOSPHATASE 128 IU/L (42-121); ANION GAP 1 (5-13); ASPARTATE AMINO TRANSFERASE 72 IU/L (15-46); BILIRUBIN,INDIRECT 1.8 mg/dl (0-1.1); BILIRUBIN,TOTAL 1.8 mg/dl (0.2-1.3); BLOOD UREA NITROGEN 14 mg/dl (7-20); CALCIUM 8.6 mg/dl (8.4-10.2); CARBON DIOXIDE 30 mmol/L (21-31); CHLORIDE 106 mmol/L (97-110); CREATININE 0.54 mg/dl (0.44-1.00); Estimated GFR > 60 mL/min (>60); GLUCOSE 335 mg/dl (70-220); POTASSIUM 3.7 mmol/L (3.5-5.1); SODIUM 137 mmol/L (135-144); TOTAL PROTEIN 6.9 g/dl (6.1-8.1)
[2018-03-26 16:53] LABS: TROPONIN-I < 0.012 ng/ml (0.000-0.120)
[2018-03-26] MEDS: ONDANSETRON 4 MG INJ IV (18:30)
[2018-03-26] MEDS: HYDROmorphONE 1 MG/ML SYG IV (18:31)
[2018-03-26] MEDS: BELLADONNA/PHENOBARBITAL TAB PO (18:31)
[2018-03-26] MEDS: LIDOCAINE/MYLANTA 40 ML BTL PO (18:31)
[2018-03-27] MEDS ORDERED: ONDANSETRON 4 MG INJ IV ×2 (14:30→15:30)
[2018-03-27] MEDS ORDERED: ACETAMINOPHEN 325 MG TAB PO (14:30)
[2018-03-27] MEDS ORDERED: ZOLPIDEM 5 MG TAB PO (15:30)
[2018-03-27] MEDS ORDERED: DEXTROSE 50% 50 ML SYRINGE IV ×2 (16:00)
[2018-03-27] MEDS ORDERED: GLUCAGON 1 MG INJ IM (16:00)
[2018-03-27] MEDS ORDERED: GLUCOSE GEL 15 GRAM TUBE BUCCAL (16:00)
[2018-03-27] MEDS ORDERED: GLUCOSE GEL 15 GRAM TUBE PO ×2 (16:00)
[2018-03-27] MEDS: INSULIN ASPART [NOVOLOG] 3 ML PEN SC ×2 (18:00→20:44)
[2018-03-27] MEDS: HYDROCODONE/APAP (5/325) TAB PO (18:23)
[2018-03-27] MEDS: LACTULOSE 30ML CUP PO (20:41)
[2018-03-27] MEDS: MAGNESIUM OXIDE 400 MG TAB PO (20:41)
[2018-03-27] MEDS: BETAMETHASONE/CLOTRIMAZOLE 15 GM CR TOP (22:46)
[2018-03-27] MEDS: MONTELUKAST 10 MG TAB PO (22:46)
[2018-03-28] MEDS: HYDROCODONE/APAP (5/325) TAB PO ×2 (01:48→08:47)
[2018-03-28] MEDS: ACCU-CHEK XX (02:09)
[2018-03-28 07:25] LABS: ADD MAN DIFF? NO
[2018-03-28 07:34] LABS: WHITE BLOOD COUNT 3.1 10^3/ul (4.8-10.8)
[2018-03-28 07:34] LABS: ABNORMAL IP MESSAGE 1; BASOPHILS % 1.3 % (0.0-2.0); HEMATOCRIT 33.4 % (37.0-47.0); HEMOGLOBIN 10.4 g/dl (12.0-16.0); LYMPHOCYTES % 31.8 % (15.0-51.0); MEAN CORPUSCULAR HEMOGLOBIN 29.3 pg (29.0-33.0); MEAN CORPUSCULAR HGB CONC 31.1 g/dl (32.0-37.0); MEAN CORPUSCULAR VOLUME 94.1 fl (82.0-101.0); MEAN PLATELET VOLUME 10.3 fl (7.4-10.4); MONOCYTE # 0.3 10^3/ul (0.3-0.9); MONOCYTES % 10.8 % (0.0-11.0); NEUTROPHIL # 1.7 10^3/ul (1.6-7.5); NEUTROPHILS % 55.1 % (39.0-77.0); PLATELET COUNT 64 10^3/UL (140-415); RED BLOOD COUNT 3.55 10^6/ul (4.20-5.40); RED CELL DISTRIBUTION WIDTH 14.4 % (11.5-14.5)
[2018-03-28 07:41] LABS: HEMOGLOBIN A1C 8.1 % (0-5.9)
[2018-03-28 07:42] LABS: POSITIVE DIFF @See below
[2018-03-28 07:51] LABS: ALANINE AMINOTRANSFERASE 45 IU/L (13-69); ALBUMIN 2.2 g/dl (3.3-4.9); ALBUMIN/GLOBULIN RATIO 0.51; ALKALINE PHOSPHATASE 115 IU/L (42-121); ANION GAP 0 (5-13); ASPARTATE AMINO TRANSFERASE 93 IU/L (15-46); BILIRUBIN,INDIRECT 0.7 mg/dl (0-1.1); BILIRUBIN,TOTAL 0.7 mg/dl (0.2-1.3); BLOOD UREA NITROGEN 15 mg/dl (7-20); CALCIUM 8.2 mg/dl (8.4-10.2); CARBON DIOXIDE 30 mmol/L (21-31); CHLORIDE 107 mmol/L (97-110); CREATININE 0.49 mg/dl (0.44-1.00); Estimated GFR > 60 mL/min (>60); GLUCOSE 173 mg/dl (70-220); MAGNESIUM 1.6 mg/dl (1.7-2.5); PHOSPHORUS 3.8 mg/dl (2.5-4.9); POTASSIUM 4.2 mmol/L (3.5-5.1); SODIUM 137 mmol/L (135-144); TOTAL PROTEIN 6.5 g/dl (6.1-8.1)
[2018-03-28] MEDS: INSULIN ASPART [NOVOLOG] 3 ML PEN SC ×3 (08:41→17:21)
[2018-03-28] MEDS: LACTULOSE 30ML CUP PO (08:42)
[2018-03-28] MEDS: MAGNESIUM OXIDE 400 MG TAB PO (08:44)
[2018-03-28] MEDS: FUROSEMIDE 40 MG TAB PO (08:44)
[2018-03-28] MEDS: SACCHAROMYCES BOULARDII 250 MG CAP PO (08:44)
[2018-03-28] MEDS: SERTRALINE 100 MG TAB PO (08:44)
[2018-03-28] MEDS: PANTOPRAZOLE (EC) 40 MG TAB PO (08:45)
[2018-03-28] MEDS: GABAPENTIN 100 MG CAP PO (08:45)
[2018-03-28] MEDS: SPIRONOLACTONE 50 MG TAB PO (08:45)
[2018-03-28] MEDS: BETAMETHASONE/CLOTRIMAZOLE 15 GM CR TOP (09:00)
[2018-03-28] MEDS: MAGNESIUM SULFATE 1 GM/D5W 100 ML IVPB (12:54)
== END 2018-03-28 19:35 | disposition home or self-care (01) ==
LOC: 5EC 03-27 14:12 → E/R 14:17
DX: K74.60 Unspecified cirrhosis of liver (principal); J98.11 Atelectasis; N28.1 Cyst of kidney, acquired; I11.0 Hypertensive heart disease with heart failure; I50.9 Heart failure, unspecified; E66.01 Morbid (severe) obesity due to excess calories; Z68.41 Body mass index [BMI] 40.0-44.9, adult; Z59.0 Homelessness; M54.9 Dorsalgia, unspecified; E11.9 Type 2 diabetes mellitus without complications; J45.909 Unspecified asthma, uncomplicated
CPT/HCPCS: 36415; 72020; 74176; 80053; 82962; 83036; 83735; 84100; 84484; 85025; 87081; 96374; 96375; 97161; 99285-25; G0378

== ENCOUNTER 2018-03-30 16:39 | Emergency (ER) | payer OTHER ==
[2018-03-30] MEDS ORDERED: morphine 4 MG/ML VIAL IV (23:05)
[2018-03-30] MEDS ORDERED: ONDANSETRON 4 MG INJ IV (23:05)
[2018-03-30 23:32] LABS: ADD MAN DIFF? NO
[2018-03-30 23:34] LABS: WHITE BLOOD COUNT 4.4 10^3/ul (4.8-10.8)
[2018-03-30 23:34] LABS: ABNORMAL IP MESSAGE 1; BASOPHILS % 0.9 % (0.0-2.0); HEMATOCRIT 41.6 % (37.0-47.0); HEMOGLOBIN 13.5 g/dl (12.0-16.0); LYMPHOCYTES # 1.1 10^3/ul (0.8-2.9); LYMPHOCYTES % 24.5 % (15.0-51.0); MEAN CORPUSCULAR HEMOGLOBIN 28.7 pg (29.0-33.0); MEAN CORPUSCULAR HGB CONC 32.5 g/dl (32.0-37.0); MEAN CORPUSCULAR VOLUME 88.3 fl (82.0-101.0); MEAN PLATELET VOLUME 9.1 fl (7.4-10.4); MONOCYTE # 0.5 10^3/ul (0.3-0.9); MONOCYTES % 10.8 % (0.0-11.0); NEUTROPHIL # 2.8 10^3/ul (1.6-7.5); NEUTROPHILS % 62.7 % (39.0-77.0); PLATELET COUNT 99 10^3/UL (140-415); RED BLOOD COUNT 4.71 10^6/ul (4.20-5.40); RED CELL DISTRIBUTION WIDTH 14.9 % (11.5-14.5)
[2018-03-30 23:38] LABS: POSITIVE DIFF @See below
[2018-03-30] MEDS: morphine 4 MG/ML VIAL IM (23:38)
[2018-03-30] MEDS: ONDANSETRON 4 MG INJ IM (23:38)
[2018-03-30 23:52] LABS: ALANINE AMINOTRANSFERASE 47 IU/L (13-69); ALBUMIN 2.8 g/dl (3.3-4.9); ALBUMIN/GLOBULIN RATIO 0.48; ALKALINE PHOSPHATASE 162 IU/L (42-121); ANION GAP 6 (5-13); ASPARTATE AMINO TRANSFERASE 88 IU/L (15-46); BILIRUBIN,INDIRECT 1.5 mg/dl (0-1.1); BILIRUBIN,TOTAL 1.5 mg/dl (0.2-1.3); BLOOD UREA NITROGEN 11 mg/dl (7-20); CALCIUM 8.8 mg/dl (8.4-10.2); CARBON DIOXIDE 30 mmol/L (21-31); CHLORIDE 104 mmol/L (97-110); CREATININE 0.57 mg/dl (0.44-1.00); Estimated GFR > 60 mL/min (>60); GLUCOSE 159 mg/dl (70-220); LIPASE 132 U/L (23-300); POTASSIUM 3.7 mmol/L (3.5-5.1); SODIUM 140 mmol/L (135-144); TOTAL PROTEIN 8.6 g/dl (6.1-8.1)
[2018-03-30 23:53] LABS: INR 1.16; PROTIME 14.9 Sec (11.9-14.9); PT RATIO 1.2
[2018-03-30 23:54] LABS: PARTIAL THROMBOPLASTIN TIME 30.8 Sec (23.0-35.0)
[2018-03-31 00:03] LABS: TROPONIN-I < 0.012 ng/ml (0.000-0.120)
== END 2018-03-31 14:08 | disposition home or self-care (01) ==
LOC: E/R 16:39
DX: K80.20 Calculus of gallbladder without cholecystitis without obstruction (principal); E11.9 Type 2 diabetes mellitus without complications
CPT/HCPCS: 36415; 71045; 76705; 80053; 83690; 84484; 85025; 85610; 85730; 93005; 96372; 99285-25

== ENCOUNTER 2018-04-20 22:15 | Inpatient (IN) | payer OTHER ==
[2018-04-20 23:23] LABS: ADD MAN DIFF? NO
[2018-04-20 23:26] LABS: ABNORMAL IP MESSAGE 1; BASOPHIL # 0.1 10^3/ul (0.0-0.1); BASOPHILS % 1.1 % (0.0-2.0); HEMATOCRIT 38.1 % (37.0-47.0); HEMOGLOBIN 12.1 g/dl (12.0-16.0); LYMPHOCYTES # 1.1 10^3/ul (0.8-2.9); LYMPHOCYTES % 19.3 % (15.0-51.0); MEAN CORPUSCULAR HEMOGLOBIN 28.3 pg (29.0-33.0); MEAN CORPUSCULAR HGB CONC 31.8 g/dl (32.0-37.0); MEAN CORPUSCULAR VOLUME 89.2 fl (82.0-101.0); MEAN PLATELET VOLUME 10.3 fl (7.4-10.4); MONOCYTE # 0.6 10^3/ul (0.3-0.9); MONOCYTES % 10.2 % (0.0-11.0); NEUTROPHIL # 3.8 10^3/ul (1.6-7.5); NEUTROPHILS % 68.5 % (39.0-77.0); PLATELET COUNT 91 10^3/UL (140-415); RED BLOOD COUNT 4.27 10^6/ul (4.20-5.40); RED CELL DISTRIBUTION WIDTH 16.3 % (11.5-14.5)
[2018-04-20 23:26] LABS: WHITE BLOOD COUNT 5.5 10^3/ul (4.8-10.8)
[2018-04-20 23:28] LABS: POSITIVE DIFF @See below
[2018-04-20] MEDS: morphine 4 MG/ML VIAL IV (23:28)
[2018-04-20] MEDS: SOD CHLORIDE 0.9% 500 ML IV (23:28)
[2018-04-20] MEDS: PIPER-TAZO 3.375 GM IV (PMX) 100 ML IVPB (23:28)
[2018-04-20] MEDS: ONDANSETRON 4 MG INJ IV (23:28)
[2018-04-20 23:41] LABS: ALANINE AMINOTRANSFERASE 32 IU/L (13-69); ALBUMIN 2.9 g/dl (3.3-4.9); ALKALINE PHOSPHATASE 189 IU/L (42-121); ANION GAP 8 (5-13); ASPARTATE AMINO TRANSFERASE 80 IU/L (15-46); BILIRUBIN,INDIRECT 2.2 mg/dl (0-1.1); BILIRUBIN,TOTAL 2.2 mg/dl (0.2-1.3); BLOOD UREA NITROGEN 9 mg/dl (7-20); CALCIUM 8.7 mg/dl (8.4-10.2); CARBON DIOXIDE 25 mmol/L (21-31); CHLORIDE 105 mmol/L (97-110); CREATININE 0.55 mg/dl (0.44-1.00); Estimated GFR > 60 mL/min (>60); GLUCOSE 189 mg/dl (70-220); LIPASE 143 U/L (23-300); POTASSIUM 3.9 mmol/L (3.5-5.1); SODIUM 138 mmol/L (135-144); TOTAL PROTEIN 8.6 g/dl (6.1-8.1)
[2018-04-20 23:43] LABS: INR 1.19; PROTIME 15.2 Sec (11.9-14.9); PT RATIO 1.2
[2018-04-20 23:44] LABS: PARTIAL THROMBOPLASTIN TIME 31.7 Sec (23.0-35.0)
[2018-04-21] MEDS ORDERED: DOCUSATE SODIUM 100 MG CAP PO (01:30)
[2018-04-21] MEDS ORDERED: NACL 0.9% 3 ML SYG IV (01:30)
[2018-04-21] MEDS ORDERED: ONDANSETRON 4 MG INJ IV (01:30)
[2018-04-21] MEDS ORDERED: FUROSEMIDE 40 MG INJ IM (03:30)
[2018-04-21] MEDS ORDERED: FUROSEMIDE 40 MG INJ IV (03:30)
[2018-04-21] MEDS: FUROSEMIDE 40 MG INJ IV (03:46)
[2018-04-21 05:34] LABS: AADO2 Arterial 53.8 mmHg (7.0-24.0); Allen Test ACCEPTAB; Arterial COHb 0.9 % (0.0-3.0); Arterial Fraction of Oxyhgb 93.9 % (93.0-99.0); Arterial HCO3 31.3 mmol/L (22.0-26.0); Arterial MetHb 0.3 % (0.0-1.5); Arterial pCO2 48.6 mmhg (35-45); MODE NASAL CANNULA; Site Right Radial
[2018-04-21 06:56] LABS: ADD UMIC YES; UR ASCORBIC ACID NEGATIVE (NEGATIVE); UR BACTERIA FEW /HPF (NONE SEEN); UR BILIRUBIN (Dip) NEGATIVE (NEGATIVE); UR BLOOD (Dip) 1+ mg/dL (NEGATIVE); UR CLARITY CLOUDY (CLEAR); UR COLOR YELLOW (YELLOW); UR GLUCOSE (Dip) NEGATIVE (NEGATIVE); UR KETONES (Dip) NEGATIVE (NEGATIVE); UR LEUKOCYTE ESTERASE (Dip) 2+ Leu/ul (NEGATIVE); UR NITRITE (Dip) NEGATIVE (NEGATIVE); UR NONSQUAMOUS EPITHELIAL CELL 2 /HPF (NONE SEEN); UR RBC 5 /HPF (0-5); UR SPECIFIC GRAVITY (Dip) 1.004 (1.003-1.030); UR TOTAL PROTEIN (Dip) NEGATIVE (NEGATIVE); UR UROBILINOGEN (Dip) NEGATIVE (NEGATIVE); UR WBC 67 /HPF (0-5)
[2018-04-21 08:05] LABS: ADD MAN DIFF? NO
[2018-04-21 08:13] LABS: WHITE BLOOD COUNT 3.6 10^3/ul (4.8-10.8)
[2018-04-21 08:13] LABS: ABNORMAL IP MESSAGE 1; BASOPHILS % 1.1 % (0.0-2.0); HEMATOCRIT 31.9 % (37.0-47.0); LYMPHOCYTES # 0.9 10^3/ul (0.8-2.9); LYMPHOCYTES % 26.2 % (15.0-51.0); MEAN CORPUSCULAR HEMOGLOBIN 28.2 pg (29.0-33.0); MEAN CORPUSCULAR HGB CONC 31.3 g/dl (32.0-37.0); MEAN CORPUSCULAR VOLUME 89.9 fl (82.0-101.0); MONOCYTE # 0.4 10^3/ul (0.3-0.9); NEUTROPHIL # 2.2 10^3/ul (1.6-7.5); NEUTROPHILS % 61.9 % (39.0-77.0); PLATELET COUNT 72 10^3/UL (140-415); RED BLOOD COUNT 3.55 10^6/ul (4.20-5.40); RED CELL DISTRIBUTION WIDTH 16.3 % (11.5-14.5)
[2018-04-21 08:14] LABS: POSITIVE DIFF @See below
[2018-04-21 08:31] LABS: AMMONIA 58 umol/l (9-30)
[2018-04-21 08:39] LABS: Estimated GFR > 60 mL/min (>60)
[2018-04-21 08:41] LABS: ALANINE AMINOTRANSFERASE 34 IU/L (13-69); ALBUMIN/GLOBULIN RATIO 0.48; ALKALINE PHOSPHATASE 110 IU/L (42-121); ANION GAP 2 (5-13); ASPARTATE AMINO TRANSFERASE 68 IU/L (15-46); BILIRUBIN,INDIRECT 1.9 mg/dl (0-1.1); BILIRUBIN,TOTAL 1.9 mg/dl (0.2-1.3); BLOOD UREA NITROGEN 9 mg/dl (7-20); CALCIUM 8.2 mg/dl (8.4-10.2); CARBON DIOXIDE 32 mmol/L (21-31); CHLORIDE 106 mmol/L (97-110); CREATININE 0.48 mg/dl (0.44-1.00); GLUCOSE 171 mg/dl (70-220); POTASSIUM 3.4 mmol/L (3.5-5.1); SODIUM 140 mmol/L (135-144); TOTAL PROTEIN 6.1 g/dl (6.1-8.1)
[2018-04-21 08:44] LABS: D-DIMER 2341.45 ng/ml (<460)
[2018-04-21] MEDS: CEFTRIAXONE 1 GM/50 ML (PMX) 50 ML IVPB (09:31)
[2018-04-21] MEDS: POTASSIUM CHLORIDE (SR) 10 MEQ TAB PO (09:31)
[2018-04-21] MEDS: PANTOPRAZOLE (EC) 40 MG TAB PO (09:32)
[2018-04-21] MEDS: SPIRONOLACTONE 50 MG TAB PO (09:34)
[2018-04-21 10:05] LABS: HEMOGLOBIN A1C 7.7 % (0-5.9)
[2018-04-21] MEDS: IOHEXOL 350MG/ML 50 ML BTL (10:44)
[2018-04-21] MEDS: IOHEXOL 100 ML (10:44)
[2018-04-21] MEDS: SOD CHLORIDE 0.9% 100 ML (10:44)
[2018-04-21] MEDS: ALBUMIN HUMAN 25% 100 ML IV ×2 (11:44→13:37)
[2018-04-21] MEDS: INSULIN ASPART [NOVOLOG] 3 ML PEN SC ×3 (12:13→20:54)
[2018-04-21] MEDS: HYDROCODONE/APAP (5/325) TAB PO (22:56)
[2018-04-22] MEDS: ACCU-CHEK XX (02:00)
[2018-04-22] MEDS: PANTOPRAZOLE (EC) 40 MG TAB PO (06:25)
[2018-04-22] MEDS: HYDROCODONE/APAP (5/325) TAB PO ×2 (06:25→19:30)
[2018-04-22] MEDS: INSULIN ASPART [NOVOLOG] 3 ML PEN SC ×4 (08:09→21:09)
[2018-04-22] MEDS: SPIRONOLACTONE 50 MG TAB PO (08:10)
[2018-04-22] MEDS: CEFTRIAXONE 1 GM/50 ML (PMX) 50 ML IVPB (08:10)
[2018-04-22] MEDS: MICONAZOLE 200 MG VAG SUPP VAG (08:10)
[2018-04-22] MEDS: NYSTATIN 15 GM CR TOP ×2 (08:10→21:07)
[2018-04-23] MEDS: ACCU-CHEK XX (02:00)
[2018-04-23] MEDS: HYDROCODONE/APAP (5/325) TAB PO (03:22)
[2018-04-23] MEDS: PANTOPRAZOLE (EC) 40 MG TAB PO (05:05)
[2018-04-23] MEDS: INSULIN ASPART [NOVOLOG] 3 ML PEN SC ×4 (08:00→20:36)
[2018-04-23] MEDS: CEFTRIAXONE 1 GM/50 ML (PMX) 50 ML IVPB (08:45)
[2018-04-23] MEDS: SPIRONOLACTONE 50 MG TAB PO (08:45)
[2018-04-23] MEDS: NYSTATIN 15 GM CR TOP ×2 (08:46→20:37)
[2018-04-23] MEDS: MICONAZOLE 200 MG VAG SUPP VAG (08:46)
[2018-04-23] MEDS: BISACODYL (EC) 5 MG TAB PO (20:37)
[2018-04-24] MEDS: ACCU-CHEK XX (03:00)
[2018-04-24] MEDS: PANTOPRAZOLE (EC) 40 MG TAB PO (05:41)
[2018-04-24 06:37] LABS: ADD MAN DIFF? NO
[2018-04-24 06:41] LABS: ABNORMAL IP MESSAGE 1; BASOPHILS % 1.3 % (0.0-2.0); HEMATOCRIT 30.3 % (37.0-47.0); HEMOGLOBIN 9.7 g/dl (12.0-16.0); LYMPHOCYTES # 0.7 10^3/ul (0.8-2.9); LYMPHOCYTES % 28.1 % (15.0-51.0); MEAN CORPUSCULAR HEMOGLOBIN 28.8 pg (29.0-33.0); MEAN CORPUSCULAR VOLUME 89.9 fl (82.0-101.0); MEAN PLATELET VOLUME 9.4 fl (7.4-10.4); MONOCYTE # 0.3 10^3/ul (0.3-0.9); MONOCYTES % 12.6 % (0.0-11.0); NEUTROPHIL # 1.3 10^3/ul (1.6-7.5); NEUTROPHILS % 55.8 % (39.0-77.0); PLATELET COUNT 53 10^3/UL (140-415); RED BLOOD COUNT 3.37 10^6/ul (4.20-5.40); RED CELL DISTRIBUTION WIDTH 15.9 % (11.5-14.5)
[2018-04-24 06:41] LABS: WHITE BLOOD COUNT 2.3 10^3/ul (4.8-10.8)
[2018-04-24 06:45] LABS: POSITIVE DIFF @See below
[2018-04-24 07:18] LABS: ANION GAP 3 (5-13); BLOOD UREA NITROGEN 9 mg/dl (7-20); CALCIUM 8.6 mg/dl (8.4-10.2); CARBON DIOXIDE 35 mmol/L (21-31); CHLORIDE 102 mmol/L (97-110); CREATININE 0.55 mg/dl (0.44-1.00); Estimated GFR > 60 mL/min (>60); GLUCOSE 138 mg/dl (70-220); MAGNESIUM 1.2 mg/dl (1.7-2.5); PHOSPHORUS 3.2 mg/dl (2.5-4.9); POTASSIUM 3.8 mmol/L (3.5-5.1); SODIUM 140 mmol/L (135-144)
[2018-04-24] MEDS: INSULIN ASPART [NOVOLOG] 3 ML PEN SC ×4 (08:48→20:41)
[2018-04-24] MEDS: SPIRONOLACTONE 50 MG TAB PO (08:51)
[2018-04-24] MEDS: CEFTRIAXONE 1 GM/50 ML (PMX) 50 ML IVPB (08:51)
[2018-04-24] MEDS: NYSTATIN 15 GM CR TOP ×2 (08:52→20:41)
[2018-04-24] MEDS: MICONAZOLE 100 MG VAG SUPP VAG (12:27)
[2018-04-24] MEDS: MAGNESIUM SULFATE 3 GM in DEXTROSE 5% 100 ML IVPB (15:46)
[2018-04-24] MEDS: HYDROCODONE/APAP (5/325) TAB PO ×2 (15:46→21:44)
[2018-04-25] MEDS: ACCU-CHEK XX (01:53)
[2018-04-25] MEDS: PANTOPRAZOLE (EC) 40 MG TAB PO (05:18)
[2018-04-25] MEDS: SPIRONOLACTONE 50 MG TAB PO (08:07)
[2018-04-25] MEDS: NYSTATIN 15 GM CR TOP ×2 (08:08→20:54)
[2018-04-25] MEDS: INSULIN ASPART [NOVOLOG] 3 ML PEN SC ×4 (08:09→20:53)
[2018-04-25] MEDS: CEFTRIAXONE 1 GM/50 ML (PMX) 50 ML IVPB (12:40)
[2018-04-25] MEDS: HYDROCODONE/APAP (5/325) TAB PO ×2 (13:26→20:56)
[2018-04-26] MEDS: ACCU-CHEK XX (02:00)
[2018-04-26] MEDS: PANTOPRAZOLE (EC) 40 MG TAB PO (06:01)
[2018-04-26] MEDS: INSULIN ASPART [NOVOLOG] 3 ML PEN SC ×4 (08:00→20:38)
[2018-04-26] MEDS: SPIRONOLACTONE 50 MG TAB PO (08:27)
[2018-04-26] MEDS: CEFTRIAXONE 1 GM/50 ML (PMX) 50 ML IVPB (08:27)
[2018-04-26] MEDS: NYSTATIN 15 GM CR TOP ×2 (08:32→20:41)
[2018-04-26] MEDS: HYDROCODONE/APAP (5/325) TAB PO ×3 (08:33→22:32)
[2018-04-27] MEDS: ACCU-CHEK XX (01:58)
[2018-04-27] MEDS: ACETAMINOPHEN 325 MG TAB PO (02:02)
[2018-04-27] MEDS: HYDROCODONE/APAP (5/325) TAB PO ×3 (05:31→20:53)
[2018-04-27] MEDS: PANTOPRAZOLE (EC) 40 MG TAB PO (05:31)
[2018-04-27] MEDS: INSULIN ASPART [NOVOLOG] 3 ML PEN SC ×4 (08:00→20:57)
[2018-04-27] MEDS: SPIRONOLACTONE 50 MG TAB PO (09:03)
[2018-04-27] MEDS: CEFTRIAXONE 1 GM/50 ML (PMX) 50 ML IVPB (09:04)
[2018-04-27] MEDS: NYSTATIN 15 GM CR TOP ×2 (09:04→21:30)
[2018-04-28] MEDS: ACCU-CHEK XX (02:08)
[2018-04-28] MEDS: PANTOPRAZOLE (EC) 40 MG TAB PO (06:01)
[2018-04-28] MEDS: INSULIN ASPART [NOVOLOG] 3 ML PEN SC ×3 (08:51→17:47)
[2018-04-28] MEDS: CEFTRIAXONE 1 GM/50 ML (PMX) 50 ML IVPB (08:51)
[2018-04-28] MEDS: SPIRONOLACTONE 50 MG TAB PO (08:51)
[2018-04-28] MEDS: HYDROCODONE/APAP (5/325) TAB PO ×2 (08:52→20:44)
[2018-04-28] MEDS: NYSTATIN 15 GM CR TOP (08:55)
== END 2018-04-28 20:55 | DRG 689 ==
LOC: E/R 22:15 → PP2 04-21 00:59
DX: N39.0 Urinary tract infection, site not specified (principal); G92 Toxic encephalopathy; L03.115 Cellulitis of right lower limb; J90 Pleural effusion, not elsewhere classified; Z68.41 Body mass index [BMI] 40.0-44.9, adult; K70.30 Alcoholic cirrhosis of liver without ascites; B19.20 Unspecified viral hepatitis C without hepatic coma; E11.9 Type 2 diabetes mellitus without complications; E66.01 Morbid (severe) obesity due to excess calories; F17.200 Nicotine dependence, unspecified, uncomplicated; F32.9 Major depressive disorder, single episode, unspecified; M25.571 Pain in right ankle and joints of right foot; Z71.3 Dietary counseling and surveillance; Z59.0 Homelessness; Z79.84 Long term (current) use of oral hypoglycemic drugs
CPT/HCPCS: 36415; 36600; 70450; 71045; 71250; 71275; 73610-RT; 73630; 80048; 80053; 81001; 82140; 82803; 82962; 83036; 83690; 83735; 84100; 85025; 85378; 85610; 85730; 87040; 87081; 93970; 96374; 96375; 97116; 97162; 97530; 99285-25; G0378